=== PATIENT | male | born 1950 | race Caucasian/White ===

== ENCOUNTER 2020-11-14 10:11 | Outpatient (CLI) | payer MEDICARE, OTHER, SELFPAY ==
[2020-11-14] MEDS: sodium chloride 0.9% 1,000 ML 999 ML IV (11:40)
[2020-11-14] MEDS: levofloxacin-dextrose 5% 750 mg-150 mL Premix 100 MG IV (11:40)
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
== END 2020-11-14 10:12 | disposition home or self-care (01) ==
PROVIDERS: Family Provider Family Medicine; Visit Provider Internal Medicine Medical Oncology
DX: C83.37 Diffuse large B-cell lymphoma, spleen (principal); R05 Cough; Z90.81 Acquired absence of spleen; Z79.899 Other long term (current) drug therapy
CPT/HCPCS: 96365; 99205; J1956; J7030

== ENCOUNTER 2020-11-15 14:42 | Outpatient (CLI) | payer MEDICARE, OTHER, SELFPAY ==
[2020-11-15 14:15] LABS: Basophils % 0.5 %; Eosinophils % 0.5 %; Hemoglobin 13.2 g/dL (11.7-16.6); Lymphocytes # 1.7 10^3/uL (0.8-4.8); Lymphocytes % 22.9 %; Mean Corpuscular HGB Conc 32.2 g/dL (30.0-36.0); Mean Corpuscular Hemoglobin 29.7 pg (28.0-34.0); Mean Corpuscular Volume 92.3 fL (80-94); Mean Platelet Volume 9.6 fL (7.4-10.4); Monocytes # 0.7 10^3/uL (0.2-0.9); Monocytes % 9.6 %; Neutrophils # 4.79 10^3/uL (1.8-7.7); Nucleated Red Blood Cells % 0 %; Platelet Count 558 10^3/cmm (130-400); Red Blood Count 4.44 10^6/uL (4.1-5.3); Red Cell Distribution Width 11.7 % (12.1-15.1); White Blood Count 7.3 10^3/uL (4.0-10.0)
[2020-11-15 14:42] LABS: Alanine Aminotransferase 28 U/L (0-41); Albumin Level 3.6 g/dL (3.5-5.2); Alkaline Phosphatase 107 IU/L (40-130); Anion Gap 13.1 (5-19); Aspartate Amino Transferase 24 U/L (0-40); Blood Urea Nitrogen 10 mg/dL (8-23); Calcium 9.5 mg/dL (8.5-10.5); Carbon Dioxide 30 mmol/L (22-29); Chloride 96 mmol/L (98-107); Globulin 3.7 g/dL (1.3-4.6); Glomerular Filtration Rate 133.6 mL/min (90-130); Glucose 131 mg/dL (65-115); Lactate Dehydrogenase 231 U/L (135-225); Osmolality Calculated 281 mOsm/kg (285-295); Potassium 4.1 mmol/L (3.5-5.1); Sodium 135 mmol/L (136-145); Total Bilirubin 0.4 mg/dL (0.15-1.2); Total Protein 7.3 g/dL (6.6-8.7); Uric Acid 3.3 mg/dL (3.4-7.0)
== END 2020-11-15 14:43 | disposition home or self-care (01) ==
LOC: ONCMED 14:47
PROVIDERS: PCP Family Medicine; Visit Provider Internal Medicine Medical Oncology
DX: C83.37 Diffuse large B-cell lymphoma, spleen (principal)
CPT/HCPCS: 80053; 83615; 84550; 85025

== ENCOUNTER → 2020-11-23 15:26 | Outpatient (BNVA) | payer MEDICARE, OTHER, SELFPAY | PROVIDERS: PCP Family Medicine; Visit Provider Surgery | DX: Z01.812 Encounter for preprocedural laboratory examination (principal); C85.10 Unspecified B-cell lymphoma, unspecified site | CPT/HCPCS: 87635 ==

== ENCOUNTER 2020-11-27 11:43 | Day surgery (SDC) | payer MEDICARE, OTHER, SELFPAY ==
[2020-11-24 11:15] VITALS: BMI 21.4
--- NOTE | 2020-11-27 | SCC_ITS ---
Procedure Done: Right subclavian vein PowerPort placement 11.5 seconds of fluoroscopic guidance, for a cumulative dose of 1.17 mGy, was provided to Dr. Zacarias by the radiology department. C-arm images of the chest were saved for the patient's permanent record. [facility]
--- NOTE | 2020-11-27 12:17 | SC_ITS ---
WS: [id number] INTRAOPERATIVE TECHNIQUE: 2 Spot fluoroscopic images for intraoperative purposes. FLUOROSCOPY TIME: 11.5 seconds CLINICAL INFORMATION: Powerport Placement COMPARISON: None. FINDINGS: Right Port-A-Cath with tip in the subclavian vein. No pneumothorax. SC/C-arm FL for CVA [id number] IMPRESSION: Images obtained for intraoperative purposes.
[2020-11-27 12:21] VITALS: BP 131/82; PULSE 78; RESP 18; TEMP 37; O2SAT 95
[2020-11-27] MEDS: sodium chloride 0.9% 1,000 ML 30 ML IV (12:56)
--- NOTE | 2020-11-27 13:03 | W.PM.OPSUD ---
Surgery/Procedure H&P Update DATE OF PROCEDURE: November 27, 2020 DATE H&P PERFORMED: 11/23/20 H&P UPDATE INFORMATION: I have reviewed H&P completed within last 30 days, I have examined patient prior to procedure and No changes to prior documentation PREOP DIAGNOSIS: Lymphoma requiring PowerPort placement PRIMARY INDICATION FOR PROCEDURE: The same PLANNED PROCEDURE: Operation Date: 11/27/20 13:10 Proposed Procedures p Portacath Placement 53461 C85.10(Not Applicable) - Matthew Zacarias MD
--- NOTE | 2020-11-27 13:21 | ANES.PREANE2 ---
Pre-Anesthetic Assessment Pre-Anesthetic Assessment: Height/Weight: Height 1.8 m Weight 69.853 kg Temp Pulse Resp BP Pulse Ox 98.6 F 78 18 131/82 95 11/27/20 12:21 11/27/20 12:21 11/27/20 12:21 11/27/20 12:21 11/27/20 12:21 Preop Diagnosis: Lymphoma requiring PowerPort placement Proposed Procedure: Operation Date: 11/27/20 13:10 Proposed Procedures p Portacath Placement 08798 C85.10(Not Applicable) - Matthew Zacarias MD Was Beta Malu taken within 24 hours: N/A Last intake: Intake Last Liquid Date 11/27/20 Last Liquid Time 09:00 Last Solid Date 11/26/20 Last Solid Time 19:00 Social: Social History: No alcohol and No tobacco Exam: Pre-Anes Outpt Exam: alert, oriented x 3, clear to auscultation bilaterally and regular rate & rhythm Airway: Submandibular: WNL Cervical ROM: WNL MP: 2 Dentition: Full CV/HEM: CV/HEM: Afib (s/p ablation) and Arrythmia (loop recorder) Anesthetic Plan: ASA status: 3 Anesthesia: MAC Risk of > 500 ml blood loss (7ml/kg in children): No Meds/Allergies Current Medications: Current Medications Generic Name Dose Route Start Last Admin Trade Name Freq PRN Reason Stop Dose Admin Sodium Chloride 1,000 mls @ 30 ml s/hr 11/27/20 12:30 11/27/20 12:56 Sodium Chloride 0.9% IV 11/28/20 12:29 30 mls/hr .Q24H DUDLEY Administration Data Anesthesia Cardiac Studies: No Data to Display
[2020-11-27] MEDS: lidocaine 2% INJ 20 mL INJECTION (14:01)
[2020-11-27] MEDS: heparin, porcine 1,000 unit/mL INJ 10 mL 10000 UNIT INJECTION (14:01)
--- NOTE | 2020-11-27 14:02 | P.OP_ITS ---
Operative Report Date of procedure: November 27, 2020 Pre-op Diagnosis: Lymphoma requiring PowerPort placement Post-op diagnosis: same Procedure Done: Right subclavian vein PowerPort placement with interpretation under fluoroscopy was done by me through the whole entire procedure Implants: PowerPort Surgeon: Matthew Zacarias Systems Designer: Surgical anai Youssef Circulating nurse Kayla Anesthesia: MAC (plant protection supervisor Huyen) Estimated blood loss (mL): 5 Condition: stable Disposition: same day Brief History: Plan of care; After thorough history physical examination and reviewing the chart and reviweing the images iwth my personal intrepretation.I counseled the patient for Port-A-Cath placement, indications, risks including pneumothorax that may require Chest tube(s) placement and potential injury of major vascular structures that may require Thoractomy, benefits,indications and alternatives were all discussed with the patient, patient understands and is interested to proceed. Rationale was carefully and clearly discussed with the patient.Appropriate informed consent have been reviewed and signed. Procedure: Patient was identified in the holding area and taken to the operative room and placed in supine position IV propofol was given by the anesthesia provider ,both arms were tucked,Time-out was done verifying the patient's name/date of /planned procedure and destination after the procedure, all were in agreement. SCDs confirmed to be functioning, preoperative antibiotics administered per protocol, and beta thierno protocol was confirmed, appropriate positioning of the patient was done by me. Medications were reviewed to assess for anticoagulant usage. Risks and benefits and prevention of central line associated blood stream infection (CLABSI) were discussed with the patient/CPOA, and a consent was obtained. Monitors were in place and monitored throughout the procedure. All necessary supplies were available prior to start. Hand hygiene was completed prior to starting. Maximum barrier technique was utilized including a sterile gown, sterile gloves with a hat and mask. Site was was prepped with [chlorhexidine] and a full body drape was placed. 5 mL of 2% lidocaine was injected into the skin with a 25 gauge needle. Prep& drape was done under the usual sterile technique, lidocaine 2% was injected at the site of the stick, started by the Right subclavian stick that retrieved venous blood was obtained from the first stick, a guidewire was then threaded and under the guidance of fluoroscopy position was confirmed to be in the IVC and my interpretation, there was no PVC changes, at that point the guidewire was secured to the drapes with a hemostat and the needle was taken out, attention was then deviated towards creation of a pocket for the port were lidocaine 2% was injected using an 15 blade knife skin incision was created dissection using the Bovie to create a pocket for the Port-A-Cath to be accommodated, hemostasis was secured, after the port being appropriately flushed it was inserted into the pocket and a tunneler was used to accommodate the catheter of the port cath to be delivered through the incision first created at the site of the stick, at that point under fluoroscopy an estimated length was measured for the catheter and was cut at the designed level, followed by that a dilator with the sheath introduced onto the guidewire the dilator and the wire were retrieved and the catheter of the port was introduced via the sheath where it was peeled off and the catheter maintained to be in the SVC that was confirmed with fluoroscopy, and the fluoroscopy interpretation was done by me throughout the entire procedure. The port was kept in its pocket,3-0 Vicryl deep subdermal interrupted sutures, skin was then closed by 4-0 Monocryl as subcuticular closure. The stick site was closed by 3-0 Vicryl and surgical glue was used followed by dressing. Patient tolerated the procedure well was taken to the recovery area Count was correct at the end of the procedure I was present for the whole entire procedure Position of the catheter was checked with a postoperative chest x-ray and it was in good position without evidence of pneumothorax
--- NOTE | 2020-11-27 14:05 | XRR_ITS ---
PROCEDURE INFORMATION: Exam: XR Chest, 1 View Exam date and time: 11/27/2020 2:27 PM Age: 70 years old Clinical indication: Device placement; Other: Right subclavian vein powerport placement; Prior surgery; Additional info: Status post right subclavian vein powerport placement TECHNIQUE: Imaging protocol: XR of the chest Views: 1 view. COMPARISON: No relevant prior studies available. FINDINGS: Tubes, catheters and devices: Right central venous catheter tip in the superior vena cava. Lungs: Hyperinflation. No consolidation. Pleural spaces: Unremarkable. No pleural effusion. No pneumothorax. Heart/Mediastinum: Unremarkable. No cardiomegaly. Bones/joints: No acute findings. XR/XR chest 1V portable [id number] IMPRESSION: Right central venous catheter tip in the superior vena cava.
[2020-11-27 14:18] VITALS: BP 120/80; PULSE 76; RESP 18; TEMP 36.1; O2SAT 97
[2020-11-27 14:36] VITALS: BP 135/89; PULSE 72; RESP 18; O2SAT 98
--- NOTE | 2020-11-27 16:15 | ANE.PACU2 ---
Inpatient post-anesthesia follow up: Airway intact: Yes Vital signs: Temperature 97 F Pulse Rate 72 Respiratory Rate 18 Blood Pressure 135/89 Pulse Oximetry 98 Oxygen Delivery Me thod Room Air Oxygen Flow Rate Fraction of Inspir ed Oxygen Hydration adequate: Yes Nausea and vomiting: No Pain level: 1 Mental status: Baseline
== END 2020-11-27 14:58 | disposition home or self-care (01) ==
PROVIDERS: PCP Family Medicine; Visit Provider Surgery
PROC: (CPT 36561; principal; 2020-11-27 13:10)
DX: C85.10 Unspecified B-cell lymphoma, unspecified site (principal); I48.91 Unspecified atrial fibrillation
CPT/HCPCS: 36561; 12345; 71045; 77001; C1788; J0690; J1644; J2250; J2405; J2704; J3010; J7030

== ENCOUNTER 2020-12-12 13:53 | Outpatient (CLI) | payer MEDICARE, OTHER, SELFPAY ==
--- NOTE | 2020-12-12 14:58 | USCV_ITS ---
Rehan Lambert Age: 70 Gender: M : 1950 Exam Date: 12/12/2020 15:28 Ordering Phys: González Alex MD Technologist: Jaden Dudley Exam Location: [facility] [place] Indication: CHECK LV FUNCTION-BASELINE/ LARGE B CELL LYMPHOMA BP: 125 / 68 HR: 66 Rhythm: Sinus Technical Quality: Adequate MEASUREMENTS (Male / Female) Normal Values 2D ECHO LV Diastolic Diameter PLAX 3.5 cm 4.2 - 5.9 / 3.9 - 5.3 cm LV Systolic Diameter PLAX 2.4 cm IVS Diastolic Thickness 1.4 cm 0.6 - 1.0 / 0.6 - 0.9 cm IVS Systolic Thickness 1.4 cm LVPW Diastolic Thickness 1.2 cm 0.6 - 1.0 / 0.6 - 0.9 cm LVPW Systolic Thickness 1.5 cm LVOT Diameter 2.0 cm LV Ejection Fraction 2D Teich 63.1 % LV Ejection Fraction MOD 2C 67.0 % LV Ejection Fraction 2C AL 66.0 % LA Diameter 3.4 cm LA Width 3.6 cm LA Height 3.8 cm RA Width 4.1 cm RA Height 4.8 cm Aorta at Sinotubular Diameter 3.6 cm M-MODE LV Diastolic Diameter MM 5.6 cm 4.2 - 5.9 / 3.9 - 5.3 cm LV Systolic Diameter MM 3.8 cm LV Ejection Fraction MM Teich 59.7 % IVS Diastolic Thickness MM 1.3 cm 0.6 - 1.0 / 0.6 - 0.9 cm IVS Systolic Thickness MM 1.8 cm LVPW Diastolic Thickness MM 1.3 cm 0.6 - 1.0 / 0.6 - 0.9 cm LVPW Systolic Thickness MM 2.0 cm Aortic Annulus Diameter 3.2 cm LA Ao Ratio MM 1.0 MV E Point Septal Separation 0.3 cm DOPPLER AV Peak Velocity 304.0 cm/s LVOT Peak Velocity 94.0 cm/s AV Area Cont Eq vti 1.0 cm squared AV Area Cont Eq pk 1.0 cm squared MV Area PHT 4.0 cm squared Mitral E to A Ratio 0.8 MV E' Velocity 38.0 cm/s Mitral E to MV E' Ratio 8.5 Mitral E to LV E' Lateral Ratio 8.3 Mitral E to LV E' Septal Ratio 8.7 TR Peak Velocity 219.7 cm/s TR Peak Gradient 19.3 mmHg Right Atrial Pressure 3.0 mmHg Pulmonary Artery Systolic Pressu 22.3 mmHg PV Peak Velocity 90.0 cm/s RV Acceleration Time 0.1 s RV Ejection Time 0.3 s RV AcT/ET 0.4 FINDINGS Left Ventricle Normal left ventricular cavity size. Normal left ventricular systolic function. No regional wall motion abnormalities. Left ventricular ejection fraction is estimated at 59 %. Grade I/IV diastolic dysfunction (abnormal relaxation filling pattern), normal to mildly elevated filling pressures. Right Ventricle The right ventricle is normal in size and function. RVSP could not be calculated due to incomplete tricuspid regurgitation velocity profile. Right Atrium The right atrium is normal in size. Left Atrium The left atrium is normal in size. Mitral Valve Mildly thickened mitral valve. No mitral valve stenosis. Mild mitral valve regurgitation. Aortic Valve Severe aortic valve calcification. Severe aortic valve stenosis, mean gradient 19.8 mmHg, KORI 0.98 cm squared.trace aortic valve regurgitation. Tricuspid Valve Structurally normal tricuspid valve without significant stenosis or regurgitation. Pulmonic Valve Trace pulmonary valve regurgitation. Pericardium Normal pericardium without effusion. Aorta Normal ascending aorta dimension. CONCLUSIONS 1-Normal left ventricular cavity size. Normal left ventricular systolic function. No regional wall motion abnormalities. Left ventricular ejection fraction is estimated at 59 %. Grade I/IV diastolic dysfunction (abnormal relaxation filling pattern), normal to mildly elevated filling pressures. 2-Severe aortic valve calcification. Severe aortic valve stenosis, mean gradient 19.8 mmHg, KORI 0.98 cm squared.trace aortic valve regurgitation. 3-Mildly thickened mitral valve. No mitral valve stenosis. Mild mitral valve regurgitation. 4-There is no pericardial effusion. 5-The right ventricle is normal in size and function. RVSP could not be calculated due to incomplete tricuspid regurgitation velocity profile. 6-There are no prior echocardiogram studies to compare. Radha Mcwilliams MD (Electronically Signed) Final Date: 12 December 2020 18:45 S
--- NOTE | 2020-12-16 13:50 | ONC FU_ITS ---
Dr. Alex Patient Follow-Up Note Patient: Rehan Lambert Unit #: [id number]: 1950 Dicatated By: González Alex M.D.Date of Visit:Dec 12, 2020 Onc Med Follow-up/Prog Note Chief Complaint: Lymphoma. 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 He had presented with an enlarging splenic mass. It was first noted in April 2019 when he underwent surgery for small bowel obstruction, apparently due to benign adhesions. In August [address] urogram as part of an evaluation for hematuria. That study reported a low-attenuation lesion within the spleen measuring 4.4 x 6.1 cm compared to 1.9 x 1.8 cm in the April 2019 study. The visualized portions of the liver appeared normal. There were just a few subcentimeter retroperitoneal and pelvic lymph nodes, and there were no abnormally enlarged retroperitoneal or pelvic lymph nodes noted. An MRI of the abdomen on 09/27/2020 showed a solid enlarging hypervascular mass arising from the medial aspect of the spleen. It measured 7 x 4.9 cm. It demonstrated iso to minimal hyperintensity relative to the spleen and it was felt that the appearance was not typical of a benign hemangioma or hamartoma. An underlying neoplastic process was suspected. He was seen by Dr. Jones on 10/04/2020, and splenectomy was recommended. On 10/31/2020 he underwent exploratory laparotomy with splenectomy. Pathology showed aggressive B-cell lymphoma consistent with diffuse large B-cell lymphoma, germinal center type. The B cells were positive for CD5, CD10, CD20, BCL2, BCL6, and Mum1. They were negative for CD3, CD30, and BCL1. By FISH analysis, the MYC rearrangement and MYC amplification were not detected. 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 A variant of BCL-2 gene rearrangement with an unknown gene could not be excluded. I had seen him initially on 11/14/2020. At that point he was still not feeling very good. He reported having a bad cough and is still having significant abdominal pain. At that point he still had very limited activity, and his appetite was very poor. I did opt to give him antibiotic therapy with Levaquin. He had staging PET/CT on 12/02/2020. It showed mild activity in mediastinal lymph nodes, including the left paratracheal, subaortic, subcarinal, and right hilar territories. The dominant was a right hilar lymph node with SUV 6.6. The findings were felt to be consistent with either reactive adenopathy or lymphoma. There were no other areas of abnormal uptake. He had further evaluation with echocardiogram on 12/12/2020. It showed normal left ventricular systolic function with ejection fraction estimated at 59%. There was grade 1/4 diastolic dysfunction. Also noted was severe aortic valve calcification and severe aortic valve stenosis with a mean gradient of 19.8 mmHg. The KORI was 0.98 cm???. There was just a trace of aortic valve regurgitation. He is seen for a follow-up visit. He has been feeling somewhat better compared to his initial visit. He still has limited activity tolerance, but he is able to do light work now. His ECOG score is one. His appetite is getting better, but he has had a significant weight loss. He does not fever or night sweats. He is not having shortness of breath or cough. He is still having pain in his left upper quadrant area, particularly if he coughs or sneezes. Bowel and bladder function have been okay. Medications: Tamsulosin HCl 1 (0.4 mg) Capsule Oral at bedtime Allergies: Bactrim and HYDROcodone-Acetaminophen. Physical Examination: Constitutional - He still appears somewhat weak generally, Eyes - Sclerae nonicteric. Conjunctivae clear, ENMT - No lesions noted in the oral cavity, Hematologic/Lymphatic - No cervical, clavicular, or axillary adenopathy, Respiratory - Lungs sound clear. He has pretty good air movement bilaterally, Cardiovascular - Heart rhythm appears regular. There is a II/ systolic murmur. There is no gallop or rub noted, Abdomen - Soft. The incision appears well-healed. He sitll has some tenderness in the left upper quadrant. Liver is not enlarged. There is no abdominal mass or ascites noted and there is no inguinal adenopathy, Extremities - No edema, Neurologic - No focal neurologic deficits noted. Problem List: 1. 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 He underwent open splenectomy on 10/31/2020. 2. He underwent partial small bowel resection for benign obstruction in April 2019. 3. Atrial fibrillation with prior ablation. 4. He has severe aortic stenosis by echocardiogram. 5. Benign prostatic hypertrophy. 6. Degenerative arthritis/degenerative disease of the spine. Problems Addressed with this Encounter and Plan: 1. 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 He underwent open splenectomy on 10/31/2020. His staging PET/CT showed mild FDG uptake in mediastinal lymph nodes, consistent with either reactive adenopathy or lymphoma. There were no other areas of abnormal uptake. Following discussion with Dr. Christin Awan at [facility], I am going to recommend a course of treatment with R-CHOP chemotherapy. I will plan a repeat PET/CT after 2 cycles, and depending on how well he tolerates the chemotherapy and on the PET/CT findings, I will continue treatment for up to 4 cycles. I do have concerns about the fact that he still has fairly marginal performance status following the splenectomy in October. The plan will be for him to return next week to begin his first cycle of chemotherapy. He will need hepatitis screening for the rituximab. I reviewed anticipated side effects which may include nausea/vomiting, alopecia, fatigue, low blood counts, and neuropathy, among others. I reviewed the cardiac risk associated with Adriamycin, which is predominantly a dose related risk for cardiomyopathy, but there is also a small risk of arrhythmias which may occur acutely. 2. His baseline echocardiogram showed adequate LV function with ejection fraction estimated at 59%. However, it also showed evidence for severe aortic stenosis by echocardiogram. His security tester was not available for discussion, but I was able to discuss the case with one of his associates. It was deemed acceptable to proceed with an Adriamycin-containing chemotherapy regimen, but it was recommended that we have him seen by a security tester who treats valvular disease when he has completed the chemotherapy. Signed By: González Alex M.D. <<Signature on File>>
== END 2020-12-12 13:54 | disposition home or self-care (01) ==
PROVIDERS: PCP Family Medicine; Visit Provider Internal Medicine Medical Oncology
DX: C83.37 Diffuse large B-cell lymphoma, spleen (principal); I35.0 Nonrheumatic aortic (valve) stenosis; I48.91 Unspecified atrial fibrillation; Z90.81 Acquired absence of spleen; Z79.899 Other long term (current) drug therapy
CPT/HCPCS: 93306; 99214

== ENCOUNTER 2020-12-26 06:17 | Outpatient (CLI) | payer MEDICARE, OTHER, SELFPAY ==
[2020-12-26 08:50] LABS: Basophils % 0.4 %; Eosinophils # 0.1 10^3/uL (0.0-0.8); Eosinophils % 1.3 %; Hematocrit 41.5 % (42.0-52.0); Hemoglobin 13.3 g/dL (11.7-16.6); Lymphocytes # 2.4 10^3/uL (0.8-4.8); Lymphocytes % 34.9 %; Mean Corpuscular Hemoglobin 28.9 pg (28.0-34.0); Mean Corpuscular Volume 90.2 fL (80-94); Monocytes # 0.9 10^3/uL (0.2-0.9); Monocytes % 12.9 %; Neutrophils # 3.38 10^3/uL (1.8-7.7); Neutrophils % 50.1 %; Nucleated Red Blood Cells % 0 %; Platelet Count 310 10^3/cmm (130-400); Red Cell Distribution Width 13.4 % (12.1-15.1); White Blood Count 6.8 10^3/uL (4.0-10.0)
[2020-12-26 09:13] LABS: Alanine Aminotransferase 17 U/L (0-41); Albumin Level 3.9 g/dL (3.5-5.2); Alkaline Phosphatase 97 IU/L (40-130); Anion Gap 10.8 (5-19); Aspartate Amino Transferase 18 U/L (0-40); Blood Urea Nitrogen 11 mg/dL (8-23); Calcium 9.1 mg/dL (8.5-10.5); Carbon Dioxide 29 mmol/L (22-29); Chloride 102 mmol/L (98-107); Globulin 3.4 g/dL (1.3-4.6); Glomerular Filtration Rate 133.6 mL/min (90-130); Glucose 82 mg/dL (65-115); Lactate Dehydrogenase 147 U/L (135-225); Osmolality Calculated 284 mOsm/kg (285-295); Potassium 3.8 mmol/L (3.5-5.1); Sodium 138 mmol/L (136-145); Total Bilirubin 0.4 mg/dL (0.15-1.2); Total Protein 7.3 g/dL (6.6-8.7)
[2020-12-26] MEDS: sodium chloride 0.9% 500 ML 999 ML IV (09:59)
[2020-12-26] MEDS: acetaminophen 325 mg Tablet 650 MG PO (09:59)
[2020-12-26] MEDS: palonosetron 0.25 mg/5 mL SDV IV (09:59)
[2020-12-26] MEDS: diphenhydrAMINE 50 mg/mL SDV 1mL 25 MG IV (10:30)
[2020-12-26] MEDS: sodium chloride 0.9% (100 ml) 100 ML 400 ML (10:30)
[2020-12-26] MEDS: pegfilgrastim 6 mg/0.6 mL Kit (onpro) SUBCUT (16:44)
== END 2020-12-26 06:18 | disposition home or self-care (01) ==
LOC: ONCMED 06:19
PROVIDERS: PCP Family Medicine; Visit Provider Internal Medicine Medical Oncology
DX: Z51.12 Encounter for antineoplastic immunotherapy (principal); Z51.11 Encounter for antineoplastic chemotherapy; C83.37 Diffuse large B-cell lymphoma, spleen; Z79.899 Other long term (current) drug therapy; Z76.89 Persons encountering health services in other specified circumstances
CPT/HCPCS: 80053; 83615; 85025; 96361; 96367; 96372; 96377; 96411; 96413; 96415; 96417; J1100; J1200; J1453; J2469; J2505; J7040; J9000; J9070; J9312; J9370

== ENCOUNTER 2021-01-03 05:59 | Outpatient (CLI) | payer MEDICARE, OTHER, SELFPAY ==
[2021-01-03 10:39] LABS: Basophils # 0.1 10^3/uL (0.0-0.1); Eosinophils # 0.2 10^3/uL (0.0-0.8); Hematocrit 42.5 % (42.0-52.0); Hemoglobin 13.7 g/dL (11.7-16.6); Lymphocytes # 1.1 10^3/uL (0.8-4.8); Lymphocytes % 22.7 %; Mean Corpuscular HGB Conc 32.2 g/dL (30.0-36.0); Mean Platelet Volume 11.1 fL (7.4-10.4); Monocytes # 0.2 10^3/uL (0.2-0.9); Neutrophils # 3.24 10^3/uL (1.8-7.7); Neutrophils % 67.5 %; Nucleated Red Blood Cells % 0 %; Platelet Count 220 10^3/cmm (130-400); Red Blood Count 4.72 10^6/uL (4.1-5.3); Red Cell Distribution Width 13.2 % (12.1-15.1); White Blood Count 4.8 10^3/uL (4.0-10.0)
[2021-01-03 11:02] LABS: Alanine Aminotransferase 35 U/L (0-41); Alkaline Phosphatase 107 IU/L (40-130); Anion Gap 11.7 (5-19); Aspartate Amino Transferase 16 U/L (0-40); Blood Urea Nitrogen 11 mg/dL (8-23); Calcium 9.3 mg/dL (8.5-10.5); Carbon Dioxide 31 mmol/L (22-29); Chloride 97 mmol/L (98-107); Globulin 3.2 g/dL (1.3-4.6); Glomerular Filtration Rate 133.6 mL/min (90-130); Glucose 93 mg/dL (65-115); Lactate Dehydrogenase 163 U/L (135-225); Osmolality Calculated 281 mOsm/kg (285-295); Potassium 3.7 mmol/L (3.5-5.1); Sodium 136 mmol/L (136-145); Total Bilirubin 0.4 mg/dL (0.15-1.2); Total Protein 7.2 g/dL (6.6-8.7)
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
== END 2021-01-03 06:00 | disposition home or self-care (01) ==
LOC: ONCMED 06:02
PROVIDERS: PCP Family Medicine; Visit Provider Nurse Practitioner
DX: C83.37 Diffuse large B-cell lymphoma, spleen (principal); K56.600 Partial intestinal obstruction, unspecified as to cause; I48.91 Unspecified atrial fibrillation; I35.0 Nonrheumatic aortic (valve) stenosis; N40.0 Benign prostatic hyperplasia without lower urinary tract symptoms; M47.9 Spondylosis, unspecified; Z79.899 Other long term (current) drug therapy
CPT/HCPCS: 36415; 80053; 83615; 85025; 99214

== ENCOUNTER → 2021-01-10 14:00 | Outpatient (BNVA) | payer MEDICARE, OTHER, SELFPAY | PROVIDERS: PCP Family Medicine; Referring Provider Internal Medicine Medical Oncology; Visit Provider Internal Medicine Medical Oncology | DX: C85.90 Non-Hodgkin lymphoma, unspecified, unspecified site (principal) | CPT/HCPCS: 80053; 83615; 85007; 85027 ==

== ENCOUNTER 2021-01-17 06:02 | Outpatient (CLI) | payer MEDICARE, OTHER, SELFPAY ==
[2021-01-17] MEDS: acetaminophen 325 mg Tablet 650 MG PO (10:10)
[2021-01-17] MEDS: ondansetron 2 mg/ML SDV 2 mL 16 MG IVP (10:14)
[2021-01-17] MEDS: sodium chloride 0.9% 1,000 ML 75 ML IV (10:14)
[2021-01-17] MEDS: fosaprepitant 150 MG in sodium chloride 0.9% 150 ML 300 MG IV (10:17)
[2021-01-17 10:52] LABS: Basophils # 0.1 10^3/uL (0.0-0.1); Basophils % 1.1 %; Eosinophils % 0.1 %; Hemoglobin 12.6 g/dL (11.7-16.6); Lymphocytes # 1.6 10^3/uL (0.8-4.8); Lymphocytes % 22.4 %; Mean Corpuscular HGB Conc 32.3 g/dL (30.0-36.0); Mean Corpuscular Hemoglobin 29.5 pg (28.0-34.0); Mean Corpuscular Volume 91.3 fL (80-94); Mean Platelet Volume 9.7 fL (7.4-10.4); Monocytes # 1.1 10^3/uL (0.2-0.9); Monocytes % 15.6 %; Neutrophils # 4.25 10^3/uL (1.8-7.7); Neutrophils % 59.3 %; Nucleated Red Blood Cells % 0 %; Platelet Count 408 10^3/cmm (130-400); Red Blood Count 4.27 10^6/uL (4.1-5.3); Red Cell Distribution Width 14.4 % (12.1-15.1); White Blood Count 7.2 10^3/uL (4.0-10.0)
[2021-01-17 11:14] LABS: Alanine Aminotransferase 13 U/L (0-41); Albumin Level 3.8 g/dL (3.5-5.2); Alkaline Phosphatase 89 IU/L (40-130); Aspartate Amino Transferase 18 U/L (0-40); Blood Urea Nitrogen 12 mg/dL (8-23); Calcium 8.9 mg/dL (8.5-10.5); Carbon Dioxide 30 mmol/L (22-29); Chloride 103 mmol/L (98-107); Globulin 3.1 g/dL (1.3-4.6); Glomerular Filtration Rate 133.6 mL/min (90-130); Glucose 75 mg/dL (65-115); Osmolality Calculated 286 mOsm/kg (285-295); Sodium 139 mmol/L (136-145); Total Bilirubin 0.2 mg/dL (0.15-1.2); Total Protein 6.9 g/dL (6.6-8.7)
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
== END 2021-01-17 06:03 | disposition home or self-care (01) ==
LOC: ONCMED 06:05
PROVIDERS: PCP Family Medicine; Visit Provider Nurse Practitioner
DX: Z51.11 Encounter for antineoplastic chemotherapy (principal); Z51.12 Encounter for antineoplastic immunotherapy; C83.37 Diffuse large B-cell lymphoma, spleen; F41.9 Anxiety disorder, unspecified; N40.0 Benign prostatic hyperplasia without lower urinary tract symptoms; M47.9 Spondylosis, unspecified; I48.20 Chronic atrial fibrillation, unspecified; Z86.19 Personal history of other infectious and parasitic diseases; Z79.899 Other long term (current) drug therapy
CPT/HCPCS: 80053; 85025; 96361; 96367; 96372; 96375; 96377; 96411; 96413; 96415; 96417; 99214; J1100; J1200; J1453; J2405; J2505; J7030; J7040; J9000; J9070; J9312; J9370

== ENCOUNTER → 2021-01-23 14:04 | Outpatient (BNVA) | payer MEDICARE, OTHER, SELFPAY | PROVIDERS: PCP Family Medicine; Visit Provider Internal Medicine Medical Oncology | DX: C83.37 Diffuse large B-cell lymphoma, spleen (principal) | CPT/HCPCS: 80053; 83615; 85025 ==

== ENCOUNTER → 2021-01-30 13:58 | Outpatient (BNVA) | payer MEDICARE, OTHER, SELFPAY | PROVIDERS: PCP Family Medicine; Visit Provider Internal Medicine Medical Oncology | DX: C83.37 Diffuse large B-cell lymphoma, spleen (principal) | CPT/HCPCS: 80053; 85007; 85027 ==

== ENCOUNTER 2021-02-07 07:24 | Outpatient (CLI) | payer MEDICARE, OTHER, SELFPAY ==
[2021-02-07 08:05] LABS: Basophils # 0.1 10^3/uL (0.0-0.1); Basophils % 0.9 %; Eosinophils % 0.4 %; Hematocrit 39.8 % (42.0-52.0); Hemoglobin 12.6 g/dL (11.7-16.6); Lymphocytes # 1.5 10^3/uL (0.8-4.8); Mean Corpuscular HGB Conc 31.7 g/dL (30.0-36.0); Mean Corpuscular Volume 91.7 fL (80-94); Mean Platelet Volume 9.7 fL (7.4-10.4); Neutrophils # 4.84 10^3/uL (1.8-7.7); Nucleated Red Blood Cells % 0 %; Platelet Count 432 10^3/cmm (130-400); Red Blood Count 4.34 10^6/uL (4.1-5.3); Red Cell Distribution Width 15.5 % (12.1-15.1); White Blood Count 7.6 10^3/uL (4.0-10.0)
[2021-02-07 08:25] LABS: Alanine Aminotransferase 16 U/L (0-41); Albumin Level 4.2 g/dL (3.5-5.2); Alkaline Phosphatase 106 IU/L (40-130); Anion Gap 11.6 (5-19); Aspartate Amino Transferase 16 U/L (0-40); Blood Urea Nitrogen 8 mg/dL (8-23); Calcium 8.7 mg/dL (8.5-10.5); Carbon Dioxide 30 mmol/L (22-29); Chloride 100 mmol/L (98-107); Globulin 2.8 g/dL (1.3-4.6); Glomerular Filtration Rate 111.8 mL/min (90-130); Glucose 103 mg/dL (65-115); Lactate Dehydrogenase 147 U/L (135-225); Osmolality Calculated 285 mOsm/kg (285-295); Potassium 3.6 mmol/L (3.5-5.1); Sodium 138 mmol/L (136-145); Total Bilirubin 0.3 mg/dL (0.15-1.2)
[2021-02-07] MEDS: acetaminophen 325 mg Tablet 650 MG PO (10:10)
[2021-02-07] MEDS: ondansetron 2 mg/ML SDV 2 mL 8 MG IVP (10:10)
[2021-02-07] MEDS: sodium chloride 0.9% 1,000 ML 999 ML IV (10:10)
[2021-02-07] MEDS: diphenhydrAMINE 50 mg/mL SDV 1mL 25 MG IV (10:40)
[2021-02-07] MEDS: sodium chloride 0.9% (100 ml) 100 ML 500 ML (10:40)
[2021-02-07] MEDS: DOXORUBICIN 255 MG IV (15:50)
[2021-02-07] MEDS: pegfilgrastim 6 mg/0.6 mL Kit (onpro) SUBCUT (16:15)
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
== END 2021-02-07 07:25 | disposition home or self-care (01) ==
LOC: ONCMED 07:30
PROVIDERS: PCP Family Medicine; Visit Provider Nurse Practitioner
DX: Z51.12 Encounter for antineoplastic immunotherapy (principal); Z51.11 Encounter for antineoplastic chemotherapy; C83.37 Diffuse large B-cell lymphoma, spleen; I48.20 Chronic atrial fibrillation, unspecified; I35.0 Nonrheumatic aortic (valve) stenosis; N40.0 Benign prostatic hyperplasia without lower urinary tract symptoms; M47.9 Spondylosis, unspecified; Z79.899 Other long term (current) drug therapy
CPT/HCPCS: 80053; 83615; 85025; 96361; 96367; 96372; 96377; 96413; 96415; 96417; 99214; J1100; J1200; J1453; J2405; J2505; J7030; J7040; J9000; J9070; J9312; J9370

== ENCOUNTER → 2021-02-27 08:26 | Outpatient (BNVA) | payer MEDICARE, OTHER, SELFPAY | PROVIDERS: PCP Family Medicine; Referring Provider Internal Medicine Medical Oncology; Visit Provider Internal Medicine Medical Oncology | DX: C83.37 Diffuse large B-cell lymphoma, spleen (principal) | CPT/HCPCS: 80053; 83615; 85025 ==

== ENCOUNTER 2021-02-28 07:29 | Outpatient (CLI) | payer MEDICARE, OTHER, SELFPAY ==
--- NOTE | 2021-02-28 07:35 | USCV_ITS ---
Rehan Lambert Age: 70 Gender: M : 1950 Exam Date: 02/28/2021 07:55 Ordering Phys: Martha Baker NP Technologist: Jaden Dudley [place] [facility] [place]: BP: 138 / 75 HR: 71 Rhythm: Sinus Technical Quality: Fair MEASUREMENTS (Male / Female) Normal Values 2D ECHO LV Diastolic Diameter PLAX 4.5 cm 4.2 - 5.9 / 3.9 - 5.3 cm LV Systolic Diameter PLAX 2.9 cm IVS Diastolic Thickness 1.1 cm 0.6 - 1.0 / 0.6 - 0.9 cm IVS Systolic Thickness 1.8 cm LVPW Diastolic Thickness 1.1 cm 0.6 - 1.0 / 0.6 - 0.9 cm LVPW Systolic Thickness 1.8 cm LVOT Diameter 2.0 cm LV Ejection Fraction 2D Teich 65.8 % LV Ejection Fraction MOD 2C 55.8 % LV Ejection Fraction 2C AL 54.8 % LA Diameter 4.0 cm LA Width 3.6 cm Aorta at Sinotubular Diameter 3.5 cm M-MODE LV Diastolic Diameter MM 3.8 cm 4.2 - 5.9 / 3.9 - 5.3 cm LV Systolic Diameter MM 2.5 cm LV Ejection Fraction MM Teich 63.2 % IVS Diastolic Thickness MM 1.4 cm 0.6 - 1.0 / 0.6 - 0.9 cm IVS Systolic Thickness MM 2.2 cm LVPW Diastolic Thickness MM 1.5 cm 0.6 - 1.0 / 0.6 - 0.9 cm LVPW Systolic Thickness MM 1.9 cm Aortic Annulus Diameter 3.2 cm LA Ao Ratio MM 1.3 MV E Point Septal Separation 0.3 cm DOPPLER AV Peak Velocity 377.0 cm/s LVOT Peak Velocity 94.0 cm/s AV Area Cont Eq vti 1.0 cm squared AV Area Cont Eq pk 0.8 cm squared MV Area PHT 2.6 cm squared Mitral E to A Ratio 0.9 MV E' Velocity 40.5 cm/s Mitral E to MV E' Ratio 8.7 Mitral E to LV E' Lateral Ratio 7.4 Mitral E to LV E' Septal Ratio 10.5 TR Peak Velocity 230.0 cm/s TR Peak Gradient 21.2 mmHg TV Peak E Velocity 101.0 cm/s Right Atrial Pressure 3.0 mmHg Pulmonary Artery Systolic Pressu 24.2 mmHg RV Acceleration Time 0.1 s RV Ejection Time 0.3 s RV AcT/ET 0.4 FINDINGS Left Ventricle Normal left ventricular size. LV systolic function is normal with EF of 55-60%. No regional wall motion abnormalities. Grade 1 diastolic dysfunction Right Ventricle The right ventricle is normal in size and function. Right Atrium The right atrium is normal in size. Left Atrium The left atrium is normal in size. Mitral Valve Thickened mitral valve. No significant stenosis. There is mild mitral regurgitation. Aortic Valve Severely calcified aortic valve. Based on current echo, patient has moderate to severe aortic stenosis. Continue to question patient has a mean gradient across the aortic valve of 27 mmHg and aortic valve area of 0.97 cm squared. There is no aortic regurgitation. Tricuspid Valve Structurally normal tricuspid valve without significant stenosis or regurgitation. Insufficient TR jet to calculate RVSP. Pulmonic Valve Grossly normal Pericardium Normal pericardium without effusion. Aorta Normal ascending aorta dimension. CONCLUSIONS Normal LV systolic function with EF of 55 to 60%. Grade 1 diastolic dysfunction is seen. Moderate to severe aortic stenosis with a mean gradient across aortic valve of 27 mmHg and aortic valve area of 0.97 cm squared. Compared to prior echocardiogram from 12/12/2020, no significant changes are noted. Malcolm Paulson MD (Electronically Signed) Final Date: 28 Feb 2021 09:51 S
[2021-02-28] MEDS: palonosetron 0.25 mg/5 mL SDV IV (09:42)
[2021-02-28] MEDS: sodium chloride 0.9% 500 ML 999 ML IV (09:42)
[2021-02-28] MEDS: acetaminophen 325 mg Tablet 650 MG PO (09:50)
[2021-02-28] MEDS: sodium chloride 0.9% (100 ml) 100 ML 400 ML (09:59)
[2021-02-28] MEDS: diphenhydrAMINE 50 mg/mL SDV 1mL 25 MG IV (09:59)
[2021-02-28] MEDS: pegfilgrastim 6 mg/0.6 mL Kit (onpro) SUBCUT (14:55)
[2021-02-28] MEDS: DOXORUBICIN 255 MG IV (15:10)
--- NOTE | 2021-02-28 16:28 | ONC FU_ITS ---
Dr. Alex Patient Follow-Up Note Patient: Rehan Lambert Unit #: [id number]: 1950 Dicatated By: González Alex M.D.Date of Visit:February 28, 2021 Onc Med Follow-up/Prog Note Chief Complaint: Lymphoma. 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 He had presented with an enlarging splenic mass. It was first noted in April 2019 when he underwent surgery for small bowel obstruction, apparently due to benign adhesions. In August [address] urogram as part of an evaluation for hematuria. That study reported a low-attenuation lesion within the spleen measuring 4.4 x 6.1 cm compared to 1.9 x 1.8 cm in the April 2019 study. The visualized portions of the liver appeared normal. There were just a few subcentimeter retroperitoneal and pelvic lymph nodes, and there were no abnormally enlarged retroperitoneal or pelvic lymph nodes noted. An MRI of the abdomen on 09/27/2020 showed a solid enlarging hypervascular mass arising from the medial aspect of the spleen. It measured 7 x 4.9 cm. It demonstrated iso to minimal hyperintensity relative to the spleen and it was felt that the appearance was not typical of a benign hemangioma or hamartoma. An underlying neoplastic process was suspected. He was seen by Dr. Jones on 10/04/2020, and splenectomy was recommended. On 10/31/2020 he underwent exploratory laparotomy with splenectomy. Pathology showed aggressive B-cell lymphoma consistent with diffuse large B-cell lymphoma, germinal center type. The B cells were positive for CD5, CD10, CD20, BCL2, BCL6, and Mum1. They were negative for CD3, CD30, and BCL1. By FISH analysis, the MYC rearrangement and MYC amplification were not detected. 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 A variant of BCL-2 gene rearrangement with an unknown gene could not be excluded. I had seen him initially on 11/14/2020. At that point he was still not feeling very good. He reported having a bad cough and is still having significant abdominal pain. At that point he still had very limited activity, and his appetite was very poor. I did opt to give him antibiotic therapy with Levaquin. He had staging PET/CT on 12/02/2020. It showed mild activity in mediastinal lymph nodes, including the left paratracheal, subaortic, subcarinal, and right hilar territories. The dominant was a right hilar lymph node with SUV 6.6. The findings were felt to be consistent with either reactive adenopathy or lymphoma. There were no other areas of abnormal uptake. He had further evaluation with echocardiogram on 12/12/2020. It showed normal left ventricular systolic function with ejection fraction estimated at 59%. There was grade 1/4 diastolic dysfunction. Also noted was severe aortic valve calcification and severe aortic valve stenosis with a mean gradient of 19.8 mmHg. The KORI was 0.98 cm???. There was just a trace of aortic valve regurgitation. With those findings he was recommended to undergo treatment with R-CHOP chemotherapy for up to 4 cycles, depending on his response by follow-up PET/CT after 2 cycles. His medical history is otherwise significant for severe aortic stenosis. He has a history of atrial fibrillation with a prior ablation procedure. He also has a history of Graves' disease and history of C. difficile colitis. His other medical illnesses have been limited to degenerative arthritis/degenerative disease of the spine and benign prostatic hypertrophy. He has a history of having undergone partial small bowel resection for benign obstruction in April 2019. He is a non-smoker, but he does have a history of chewing tobacco. INTERIM HISTORY: He began cycle 1 of R-CHOP on 12/26/2020. Despite having fairly marginal performance status, he tolerated the treatment reasonably well and was able to continue with cycle 2 on 01/17/2021. His restaging PET/CT on 02/03/2021 showed improved FDG uptake in mediastinal lymph nodes with a dominant right hilar lymph node SUV decreased to 3.4 from 6.6 on the pretreatment study. Other mediastinal nodes were noted to demonstrate similar improvement. He then continued with cycle 3 of R-CHOP on 02/07/2021. He is seen for a follow-up visit. He continues to have some generalized weakness/fatigue and he particularly feels rundown for a few days after his chemotherapy. However, he is doing light work now. His ECOG score is 1. He has altered taste after chemotherapy but his appetite is otherwise pretty good. He does not have fever or night sweats. He reports having some pain under his rib cage on the right side which lasts for a couple of weeks and then goes away. He has had some sores in his mouth. He has shortness of breath and he thinks his breathing has gotten worse since he started the chemotherapy. He has just occasional cough. He sometimes has chest pain. He has no GI or complaints. He has been having some pain from his lower chest down to his feet. It is intermittent, but sometimes pretty rough. He does not complain of headache. He sometimes has dizziness. He has no numbness/paresthesia, he does complain that his feet have been swelling. Medications: Tamsulosin HCl 1 (0.4 mg) Capsule Oral at bedtime Allergies: Bactrim and HYDROcodone-Acetaminophen. Vital Signs: Performed on February 28, 2021 09:04 Height - 70.00 in Weight - 164.6 lbs (HIGH) BSA - 1.92 sq.m BMI - 23.62 Temperature - 97.8 F (LOW) Pulse - 76 /min Respiration - 18 /min BP - 127/76 mm(hg) O2 Sat - 98 % Pain - 0 Fatigue - 5 Physical Examination: Constitutional - He appears somewhat weak generally, Eyes - Sclerae nonicteric. Conjunctivae clear, ENMT - No lesions noted in the oral cavity, Hematologic/Lymphatic - No cervical, clavicular, or axillary adenopathy, Respiratory - Lungs sound clear, Cardiovascular - Heart rhythm is regular. There is a II/ systolic murmur. There is no gallop or rub noted, Abdomen - Soft. Liver is not enlarged. There is no abdominal mass or ascites noted and there is no inguinal adenopathy, Extremities - No edema, Neurologic - No focal neurologic deficits noted. Lab/Imaging: CBC shows hemoglobin 12.3 g, WBC 5200, and platelet count 351,000. Comprehensive profile is unremarkable. LDH is normal at 140 U/L. Problem List: 1. 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 He underwent open splenectomy on 10/31/2020. 2. He underwent partial small bowel resection for benign obstruction in April 2019. 3. Atrial fibrillation with prior ablation. 4. He has severe aortic stenosis by echocardiogram. 5. Benign prostatic hypertrophy. 6. Degenerative arthritis/degenerative disease of the spine. 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 He underwent open splenectomy on 10/31/2020. His staging PET/CT showed mild FDG uptake in mediastinal lymph nodes, consistent with either reactive adenopathy or lymphoma. There were no other areas of abnormal uptake. With those findings he was recommended to undergo a course of treatment with R-CHOP chemotherapy for up to 4 cycles. He has now completed 3 cycles of chemotherapy. His restaging PET/CT prior to the 3rd cycle did show improvement in the FDG uptake within the right hilar and mediastinal lymph nodes. It is still unclear, though, whether those represent lymphoma versus reactive adenopathy. I am more inclined to think it is the latter, as I would have predicted a more complete response if the nodes were involved with lymphoma. Thus far he has been able to tolerate the chemotherapy with acceptable toxicity. As such, I will proceed now with his 4th cycle of R-CHOP. The dosages will remain the same. I will tentatively plan a follow-up visit in 1 month. In the meantime, I am going to review the PET/CT with Dr. Elena to determine whether or not the lymph nodes may be accessible for biopsy by EBUS. Signed By: González Alex M.D. <<Signature on File>>
== END 2021-02-28 07:30 | disposition home or self-care (01) ==
LOC: US 07:30 → ONCMED 08:34
PROVIDERS: PCP Family Medicine; Visit Provider Internal Medicine Medical Oncology
DX: Z51.12 Encounter for antineoplastic immunotherapy (principal); Z51.11 Encounter for antineoplastic chemotherapy; C83.37 Diffuse large B-cell lymphoma, spleen; I48.20 Chronic atrial fibrillation, unspecified; I35.0 Nonrheumatic aortic (valve) stenosis; N40.0 Benign prostatic hyperplasia without lower urinary tract symptoms; M47.9 Spondylosis, unspecified; Z79.899 Other long term (current) drug therapy
CPT/HCPCS: 93306; 96367; 96368; 96372; 96377; 96413; 96415; 96417; 99214; J1100; J1200; J1453; J2469; J2505; J7040; J9000; J9070; J9312; J9370

== ENCOUNTER → 2021-03-15 14:25 | Outpatient (BNVA) | payer MEDICARE, OTHER, SELFPAY | PROVIDERS: PCP Family Medicine; Visit Provider Internal Medicine Critical Care Medicine | DX: R09.89 Other specified symptoms and signs involving the circulatory and respiratory systems (principal); Z20.822 Contact with and (suspected) exposure to COVID-19 | CPT/HCPCS: 87635 ==

== ENCOUNTER 2021-03-20 07:00 | Day surgery (SDC) | payer MEDICARE, OTHER, SELFPAY ==
[2021-03-16 13:07] VITALS: BMI 22.6
[2021-03-20] VITALS (7 sets, daily range): BP systolic 118–134; BP diastolic 73–82; PULSE 68–85; RESP 15–25; TEMP 36.2–36.5; O2SAT 95–98; BMI 22.7
[2021-03-20] MEDS: sodium chloride 0.9% 1,000 ML 30 ML IV (07:45)
--- NOTE | 2021-03-20 08:23 | ANES.PREANE2 ---
Pre-Anesthetic Assessment Pre-Anesthetic Assessment: Height/Weight: Height 1.8 m Weight 73.936 kg Temp Pulse Resp Pulse Ox 97.7 F 85 18 98 03/20/21 07:23 03/20/21 07:23 03/20/21 07:23 03/20/21 07:23 Preop Diagnosis: Lymphoma requiring PowerPort placement Proposed Procedure: Operation Date: 03/20/21 08:25 Proposed Procedures p Ebus 29101 63137 C85.90(Not Applicable) - Kari Elena MD s Bronchoscopy 73181 45621 C85.90(Not Applicable) - Kari Elena MD Was Beta Malu taken within 24 hours: N/A Was Clonidine taken within 24 hours: N/A Last intake: Intake Last Liquid Date 03/19/21 Last Liquid Time 21:00 Last Solid Date 03/19/21 Last Solid Time 06:30 Social: Social History: No alcohol and No tobacco Exam: Pre-Anes Outpt Exam: alert, oriented x 3, clear to auscultation bilaterally and regular rate & rhythm Airway: Submandibular: WNL Cervical ROM: WNL MP: 2 Dentition: Full CV/HEM: CV/HEM: Afib (s/p ablation) and Murmur Comments: lymphoma Anesthetic Plan: ASA status: 3 Anesthesia: General Risk of > 500 ml blood loss (7ml/kg in children): No Meds/Allergies Current Medications: Current Medications Generic Name Dose Route Start Last Admin Trade Name Freq PRN Reason Stop Dose Admin Sodium Chloride 1,000 mls @ 30 ml s/hr 03/20/21 07:15 03/20/21 07:45 Sodium Chloride 0.9% IV 03/21/21 07:14 30 mls/hr .Q24H DUDLEY Administration PFSH Anesthesia PFSH: Medical History (Updated 03/15/21 @ 14:07 by Kari Elena MD) A-fib Anxiety BPH (benign prostatic hyperplasia) Degenerative disc disease History of Clostridioides difficile infection Large B-cell lymphoma Surgical History (Updated 03/15/21 @ 14:07 by Kari Elena MD) History of colon resection History of colonoscopy (~2014) History of exploratory laparotomy (~10/2020) History of laparoscopic cholecystectomy (~2016) History of lumbar laminectomy (~2009) History of neck surgery (~2006) History of prior ablation treatment (~2017) History of splenectomy (~10/2020) History of total right hip arthroplasty (~2008) Social History Smoking and tobacco status: current every day smoker smokeless tobacco Smokeless tobacco user: chewing tobacco Smoking risk assessment/counseling performed?: Yes Alcohol intake: never Counseling given: No Counseling given: No Lives independently: Yes Household members: spouse Marital status: Current occupational status: retired History of recent travel: No Current gender identity: Male and Female Data Anesthesia Cardiac Studies: No Data to Display
--- NOTE | 2021-03-20 09:33 | W.PM.OPSUD ---
Surgery/Procedure H&P Update DATE OF PROCEDURE: March 20, 2021 DATE H&P PERFORMED: 03/15/21 H&P UPDATE INFORMATION: I have reviewed H&P completed within last 30 days, I have examined patient prior to procedure and No changes to prior documentation PREOP DIAGNOSIS: Lymphoma with mediastinal hilar lymphadenopathy PLANNED PROCEDURE: Bronchoscopy inspection of the airway, endobronchial sound guided transbronchial needle aspiration of lymph nodes and control of bleeding. Operation Date: 03/20/21 08:25 Proposed Procedures p Ebus [id number] C85.90(Not Applicable) - Kari Elena MD s Bronchoscopy [id number] C85.90(Not Applicable) - Kari Elena MD
[2021-03-20] MEDS: lidocaine 1% INJ 20 mL XX (10:40)
--- NOTE | 2021-03-20 11:35 | PM.OP ---
Operative Report Date of procedure: March 20, 2021 Pre-op Diagnosis: Lymphoma with mediastinal hilar lymphadenopathy Post-op diagnosis: same Brief History: This is a 70-year-old gentleman with diffuse large B-cell lymphoma coming in for bronchoscopic evaluation for hilar mediastinal lymphadenopathy with PET positivity. Procedure: Name of the procedure: Bronchoscopy with inspection of the airway, endobronchial ultrasound-guided transbronchial needle aspiration of lymph nodes and control of bleeding. Indication: Suspicion for lymphoma involvement of the mediastinal hilar lymph nodes Anesthesia: General anesthesia. Local anesthesia: The alhaji in the right and left mainstem bronchi were anesthetized with 1% lidocaine, 3 mL. Description of the procedure: The procedure was explained to the patient and the consent was obtained. The patient was brought to the OR. The patient underwent endotracheal intubation for general anesthesia. Following induction of general anesthesia, the bronchoscope was advanced through the ET tube. The alhaji was sharp. The alhaji, the right and left mainstem bronchi are anesthetized with 1% lidocaine. In a systematic manner bilateral bronchial tree was then examined. The bronchoscope was advanced into the left mainstem bronchus. The left upper lobe, lingula and left lower lobe bronchi were examined up to the third subsegmental level and no abnormalities were identified. The bronchoscope was then introduced into the right mainstem bronchus. The right upper lobe, right middle lobe and right lower lobe bronchi were examined up to the third subsegmental level and no abnormalities were identified. The endobronchial ultrasound was introduced through the ET tube. Mild mediastinal hilar lymphadenopathy was noted. Fine-needle aspiration was performed from station 10 and 7 lymph node. Samples: 1. The transbronchial needle aspiration of the aforementioned lymph node groups were sent for histopathology and flow cytometry. Complications: There was no immediate complications.
--- NOTE | 2021-03-20 13:27 | ANE.PACU2 ---
Inpatient post-anesthesia follow up: Airway intact: Yes Vital signs: Temperature 97.4 F Pulse Rate 68 Respiratory Rate 18 Blood Pressure 134/80 Pulse Oximetry 97 Oxygen Delivery Me thod Room Air Oxygen Flow Rate 2 Fraction of Inspir ed Oxygen Hydration adequate: Yes Nausea and vomiting: No Pain level: 1 Mental status: Baseline
[2021-03-23 05:23] LABS: Miscellaneous Test See Scanned Lab Rpt
== END 2021-03-20 11:57 | disposition home or self-care (01) ==
PROVIDERS: PCP Family Medicine; Visit Provider Internal Medicine Critical Care Medicine
PROC: BB4BZZZ Ultrasonography of Pleura (ICD-10-PCS; principal; 2021-03-20 08:15)
PROC: 0BJ08ZZ Inspection of Tracheobronchial Tree, Via Natural or Artificial Opening Endoscopic (ICD-10-PCS; CPT 31622; 2021-03-20 08:15)
DX: C85.90 Non-Hodgkin lymphoma, unspecified, unspecified site (principal); R59.1 Generalized enlarged lymph nodes; I48.91 Unspecified atrial fibrillation; F41.9 Anxiety disorder, unspecified; N40.0 Benign prostatic hyperplasia without lower urinary tract symptoms; M19.90 Unspecified osteoarthritis, unspecified site; Z90.49 Acquired absence of other specified parts of digestive tract; F17.220 Nicotine dependence, chewing tobacco, uncomplicated
CPT/HCPCS: 31622; 31652; 88184; 88185; 88305; 96360; 96361; J1100; J2370; J2405; J2704; J3010; J3490; J7030

== ENCOUNTER 2021-04-02 12:58 | Outpatient (CLI) | payer MEDICARE, OTHER, SELFPAY ==
[2021-04-02 13:44] LABS: Basophils # 0.1 10^3/uL (0.0-0.1); Basophils % 1.2 %; Eosinophils # 0.1 10^3/uL (0.0-0.8); Eosinophils % 1.6 %; Hematocrit 36.9 % (42.0-52.0); Hemoglobin 11.9 g/dL (11.7-16.6); Lymphocytes % 20.3 %; Mean Corpuscular HGB Conc 32.2 g/dL (30.0-36.0); Mean Corpuscular Volume 96.1 fL (80-94); Monocytes % 19.9 %; Neutrophils # 2.81 10^3/uL (1.8-7.7); Neutrophils % 56.4 %; Nucleated Red Blood Cells % 0 %; Platelet Count 342 10^3/cmm (130-400); Red Blood Count 3.84 10^6/uL (4.1-5.3)
[2021-04-02 14:16] LABS: Alanine Aminotransferase 18 U/L (0-41); Albumin Level 4.1 g/dL (3.5-5.2); Alkaline Phosphatase 95 IU/L (40-130); Anion Gap 13.8 (5-19); Aspartate Amino Transferase 22 U/L (0-40); Blood Urea Nitrogen 10 mg/dL (8-23); Carbon Dioxide 27 mmol/L (22-29); Chloride 104 mmol/L (98-107); Globulin 2.3 g/dL (1.3-4.6); Glomerular Filtration Rate 111.8 mL/min (90-130); Glucose 88 mg/dL (65-115); Lactate Dehydrogenase 145 U/L (135-225); Osmolality Calculated 290 mOsm/kg (285-295); Potassium 3.8 mmol/L (3.5-5.1); Sodium 141 mmol/L (136-145); Total Bilirubin 0.4 mg/dL (0.15-1.2); Total Protein 6.4 g/dL (6.6-8.7)
--- NOTE | 2021-04-04 07:36 | ONC FU_ITS ---
Dr. Alex Patient Follow-Up Note Patient: Rehan Lambert Unit #: [id number]: [id number] Dicatated By: González Alex M.D.Date of Visit:Apr 02, 2021 Onc Med Follow-up/Prog Note Chief Complaint: Lymphoma. 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 He had presented with an enlarging splenic mass. It was first noted in April 2019 when he underwent surgery for small bowel obstruction, apparently due to benign adhesions. In August [address] urogram as part of an evaluation for hematuria. That study reported a low-attenuation lesion within the spleen measuring 4.4 x 6.1 cm compared to 1.9 x 1.8 cm in the April 2019 study. The visualized portions of the liver appeared normal. There were just a few subcentimeter retroperitoneal and pelvic lymph nodes, and there were no abnormally enlarged retroperitoneal or pelvic lymph nodes noted. An MRI of the abdomen on 09/27/2020 showed a solid enlarging hypervascular mass arising from the medial aspect of the spleen. It measured 7 x 4.9 cm. It demonstrated iso to minimal hyperintensity relative to the spleen and it was felt that the appearance was not typical of a benign hemangioma or hamartoma. An underlying neoplastic process was suspected. He was seen by Dr. Jones on 10/04/2020, and splenectomy was recommended. On 10/31/2020 he underwent exploratory laparotomy with splenectomy. Pathology showed aggressive B-cell lymphoma consistent with diffuse large B-cell lymphoma, germinal center type. The B cells were positive for CD5, CD10, CD20, BCL2, BCL6, and Mum1. They were negative for CD3, CD30, and BCL1. By FISH analysis, the MYC rearrangement and MYC amplification were not detected. 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 A variant of BCL-2 gene rearrangement with an unknown gene could not be excluded. I had seen him initially on 11/14/2020. At that point he was still not feeling very good. He reported having a bad cough and is still having significant abdominal pain. At that point he still had very limited activity, and his appetite was very poor. I did opt to give him antibiotic therapy with Levaquin. He had staging PET/CT on 12/02/2020. It showed mild activity in mediastinal lymph nodes, including the left paratracheal, subaortic, subcarinal, and right hilar territories. The dominant was a right hilar lymph node with SUV 6.6. The findings were felt to be consistent with either reactive adenopathy or lymphoma. There were no other areas of abnormal uptake. He had further evaluation with echocardiogram on 12/12/2020. It showed normal left ventricular systolic function with ejection fraction estimated at 59%. There was grade 1/4 diastolic dysfunction. Also noted was severe aortic valve calcification and severe aortic valve stenosis with a mean gradient of 19.8 mmHg. The KORI was 0.98 cm???. There was just a trace of aortic valve regurgitation. With those findings he was recommended to undergo treatment with R-CHOP chemotherapy for up to 4 cycles, depending on his response by follow-up PET/CT after 2 cycles. His medical history is otherwise significant for severe aortic stenosis. He has a history of atrial fibrillation with a prior ablation procedure. He also has a history of Graves' disease and history of C. difficile colitis. His other medical illnesses have been limited to degenerative arthritis/degenerative disease of the spine and benign prostatic hypertrophy. He has a history of having undergone partial small bowel resection for benign obstruction in April 2019. He is a non-smoker, but he does have a history of chewing tobacco. INTERIM HISTORY: He began cycle 1 of R-CHOP on 12/26/2020. Despite having fairly marginal performance status, he tolerated the treatment reasonably well and he was able to continue with cycle 2 on 01/17/2021. His restaging PET/CT on 02/03/2021 showed improved FDG uptake in mediastinal lymph nodes with a dominant right hilar lymph node SUV decreased to 3.4 from 6.6 on the pretreatment study. Other mediastinal nodes were noted to demonstrate similar improvement. He then continued with cycle 3 of R-CHOP on 02/07/2021 and with cycle 4 on 02/28/2021. On 03/15/2021 he had pulmonary consultation with Dr. Elena, and on 03/20/2021 he underwent bronchoscopy/EBUS with transbronchial needle aspiration of station 10R and station 7 lymph nodes. Pathology at both sites was benign. He is seen for a follow-up visit. He has been feeling pretty good generally. He says his energy is pretty good, but he still wears out pretty fast. ECOG score is 1. He complains that he does not have a big appetite. He has not been able to gain weight. He does not have fever or night sweats. He has a little bit of sinus drainage and sore throat, and he does have some cough. He has shortness of breath with activity. He does not complain of chest pain. He is still having some nausea and he continues to have some discomfort in the left side of the abdomen. Bowel and bladder function remain adequate. He has pain in his neck and back, but that is chronic. He very seldom has headache. He sometimes has dizziness. He complains that his feet feel kind of numb. Medications: Tamsulosin HCl 1 (0.4 mg) Capsule Oral at bedtime Allergies: Bactrim and HYDROcodone-Acetaminophen. Vital Signs: Performed on Apr 02, 2021 14:46 Height - 70.00 in Weight - 157.8 lbs (LOW) BSA - 1.89 sq.m BMI - 22.64 Temperature - 98.9 F (HIGH) Pulse - 83 /min Respiration - 17 /min BP - 132/69 mm(hg) O2 Sat - 97 % Pain - 0 Physical Examination: Constitutional - He looks pretty good generally, Eyes - Sclerae nonicteric. Conjunctivae clear, ENMT - No lesions noted in the oral cavity, Hematologic/Lymphatic - No cervical, clavicular, or axillary adenopathy, Respiratory - Lungs sound clear, Cardiovascular - Heart rhythm is regular. There is a II/ systolic murmur. There is no gallop or rub noted, Abdomen - Soft. Liver is not enlarged. There is no abdominal mass or ascites noted and there is no inguinal adenopathy, Extremities - No edema, Neurologic - No focal neurologic deficits noted. Lab/Imaging: Test performed on Apr 02, 2021 13:20 LDH (Total) 145 U/L Sodium 141 mmol/L Potassium 3.8 mmol/L Chloride 104 mmol/L CO2 27 mmol/L Anion Gap 13.8 BUN 10 mg/dL Creatinine 0.7 mg/dL Cr Clearance (Est) 98.7900 mL/min eGFR 111.8 mL/min Glucose 88 mg/dL Osmolality - Calculated 290 mOsm/kg Calcium 9.0 mg/dL Protein, Total 6.4 g/dL Albumin 4.1 g/dL Globulin 2.3 g/dL Bilirubin, Total 0.4 mg/dL ALT (SGPT) 18 U/L AST (SGOT) 22 U/L Alkaline Phosphatase 95 IU/L WBC 5.0 10 3/uL RBC 3.84 10 6/uL HGB 11.9 g/dL HCT 36.9 % MCV 96.1 fL MCH 31.0 pg MCHC 32.2 g/dL RDW 15.0 % Platelet Count 342 10 3/cmm MPV 10.0 fL Neutrophils 2.81 10 3/uL Lymphocytes 1.0 10 3/uL Monocytes 1.0 10 3/uL Eosinophils 0.1 10 3/uL Basophils 0.1 10 3/uL Neutrophil % 56.4 % Lymphocyte % 20.3 % Monocyte % 19.9 % Eosinophil % 1.6 % Basophils % 1.2 % NRBC % 0 % Problem List: 1. 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 He underwent open splenectomy on 10/31/2020. 2. He underwent partial small bowel resection for benign obstruction in April 2019. 3. Atrial fibrillation with prior ablation. 4. He has severe aortic stenosis by echocardiogram. 5. Benign prostatic hypertrophy. 6. Degenerative arthritis/degenerative disease of the spine. 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 He underwent open splenectomy on 10/31/2020. His staging PET/CT showed mild FDG uptake in mediastinal lymph nodes, consistent with either reactive adenopathy or lymphoma. There were no other areas of abnormal uptake. With those findings he was recommended to undergo a course of treatment with R-CHOP chemotherapy for up to 4 cycles. He completed 4 cycles of R-CHOP chemotherapy from 12/26/2020 through 02/28/2021. His restaging PET/CT prior to the 3rd cycle did show improvement in the FDG uptake within the right hilar and mediastinal lymph nodes. As such, it was still unclear as to whether those represent lymphoma versus reactive adenopathy. Following completion of the fourth cycle of chemotherapy, he was seen by Dr. Elena and on 03/20/2021 he underwent bronchoscopy/EBUS with biopsies of station 10 R and station 7 lymph nodes. Pathology was benign. At this point he continues to have some fatigue following the chemotherapy. He continues to have anorexia and he has not been able to gain weight. However, he has completed treatment for the lymphoma, and he will now be followed expectantly. I will see him again in 3 months. In the meantime, he will try and increase his nutritional supplementation with Ensure to twice daily. Signed By: González Alex M.D. <<Signature on File>>
== END 2021-04-02 12:59 | disposition home or self-care (01) ==
LOC: ONCMED 13:01
PROVIDERS: PCP Family Medicine; Visit Provider Internal Medicine Medical Oncology
DX: Z08 Encounter for follow-up examination after completed treatment for malignant neoplasm (principal); Z85.72 Personal history of non-Hodgkin lymphomas; Z90.81 Acquired absence of spleen; Z90.49 Acquired absence of other specified parts of digestive tract; I48.91 Unspecified atrial fibrillation; I35.0 Nonrheumatic aortic (valve) stenosis; N40.0 Benign prostatic hyperplasia without lower urinary tract symptoms; M47.9 Spondylosis, unspecified; R53.0 Neoplastic (malignant) related fatigue; R63.0 Anorexia
CPT/HCPCS: 36591; 80053; 83615; 85025; 99214

== ENCOUNTER 2021-05-15 14:12 | Outpatient (CLI) | payer MEDICARE, OTHER, SELFPAY | END 2021-05-15 14:13 | disposition home or self-care (01) | PROVIDERS: PCP Family Medicine; Visit Provider Internal Medicine Medical Oncology | DX: Z45.2 Encounter for adjustment and management of vascular access device (principal) | CPT/HCPCS: 96523 ==

== ENCOUNTER 2021-06-11 14:39 | Outpatient (CLI) | payer MEDICARE, OTHER, SELFPAY | END 2021-06-11 14:40 | disposition home or self-care (01) | LOC: ONCMED 14:44 | PROVIDERS: PCP Family Medicine; Visit Provider Internal Medicine Medical Oncology | DX: Z45.2 Encounter for adjustment and management of vascular access device (principal) | CPT/HCPCS: 96523 ==

== ENCOUNTER 2021-07-09 11:10 | Outpatient (CLI) | payer MEDICARE, OTHER, SELFPAY ==
[2021-07-09 11:44] LABS: Basophils % 0.7 %; Eosinophils # 0.1 10^3/uL (0.0-0.8); Eosinophils % 1.2 %; Hematocrit 39.7 % (42.0-52.0); Hemoglobin 13.2 g/dL (11.7-16.6); Lymphocytes % 24.2 %; Mean Corpuscular HGB Conc 33.2 g/dL (30.0-36.0); Mean Corpuscular Hemoglobin 30.1 pg (28.0-34.0); Mean Corpuscular Volume 90.6 fl (80-94); Mean Platelet Volume 10.6 fL (7.4-10.4); Monocytes # 0.6 10^3/uL (0.2-0.9); Monocytes % 13.8 %; Neutrophils # 2.47 10^3/uL (1.8-7.7); Neutrophils % 59.9 %; Nucleated Red Blood Cells % 0 %; Platelet Count 248 10^3/cmm (130-400); Red Blood Count 4.38 10^6/uL (4.1-5.3); Red Cell Distribution Width 13.2 % (12.1-15.1); White Blood Count 4.1 10^3/uL (4.0-10.0)
[2021-07-09 12:09] LABS: Alanine Aminotransferase 14 U/L (0-41); Albumin Level 3.9 g/dL (3.5-5.2); Alkaline Phosphatase 92 IU/L (40-130); Anion Gap 10.9 (5-19); Aspartate Amino Transferase 17 U/L (0-40); Blood Urea Nitrogen 9 mg/dL (8-23); Calcium 8.9 mg/dL (8.5-10.5); Carbon Dioxide 28 mmol/L (22-29); Chloride 103 mmol/L (98-107); Globulin 2.7 g/dL (1.3-4.6); Glomerular Filtration Rate 133.2 mL/min (90-130); Glucose 110 mg/dL (65-115); Lactate Dehydrogenase 145 U/L (135-225); Osmolality Calculated 285 mOsm/kg (285-295); Potassium 3.9 mmol/L (3.5-5.1); Sodium 138 mmol/L (136-145); Total Bilirubin 0.4 mg/dL (0.15-1.2); Total Protein 6.6 g/dL (6.6-8.7)
--- NOTE | 2021-07-09 20:08 | ONC FU_ITS ---
Dr. Alex Patient Follow-Up Note Patient: Rehan Lambert Unit #: [id number]: [id number] Dicatated By: González Alex M.D.Date of Visit:Jul 09, 2021 Onc Med Follow-up/Prog Note Chief Complaint: Lymphoma. 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 He had presented with an enlarging splenic mass. It was first noted in April 2019 when he underwent surgery for small bowel obstruction, apparently due to benign adhesions. In August [address] urogram as part of an evaluation for hematuria. That study reported a low-attenuation lesion within the spleen measuring 4.4 x 6.1 cm compared to 1.9 x 1.8 cm in the April 2019 study. The visualized portions of the liver appeared normal. There were just a few subcentimeter retroperitoneal and pelvic lymph nodes, and there were no abnormally enlarged retroperitoneal or pelvic lymph nodes noted. An MRI of the abdomen on 09/27/2020 showed a solid enlarging hypervascular mass arising from the medial aspect of the spleen. It measured 7 x 4.9 cm. It demonstrated iso to minimal hyperintensity relative to the spleen and it was felt that the appearance was not typical of a benign hemangioma or hamartoma. An underlying neoplastic process was suspected. He was seen by Dr. Jones on 10/04/2020, and splenectomy was recommended. On 10/31/2020 he underwent exploratory laparotomy with splenectomy. Pathology showed aggressive B-cell lymphoma consistent with diffuse large B-cell lymphoma, germinal center type. The B cells were positive for CD5, CD10, CD20, BCL2, BCL6, and Mum1. They were negative for CD3, CD30, and BCL1. By FISH analysis, the MYC rearrangement and MYC amplification were not detected. 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 A variant of BCL-2 gene rearrangement with an unknown gene could not be excluded. I had seen him initially on 11/14/2020. At that point he was still not feeling very good. He reported having a bad cough and is still having significant abdominal pain. At that point he still had very limited activity, and his appetite was very poor. I did opt to give him antibiotic therapy with Levaquin. He had staging PET/CT on 12/02/2020. It showed mild activity in mediastinal lymph nodes, including the left paratracheal, subaortic, subcarinal, and right hilar territories. The dominant was a right hilar lymph node with SUV 6.6. The findings were felt to be consistent with either reactive adenopathy or lymphoma. There were no other areas of abnormal uptake. He had further evaluation with echocardiogram on 12/12/2020. It showed normal left ventricular systolic function with ejection fraction estimated at 59%. There was grade 1/4 diastolic dysfunction. Also noted was severe aortic valve calcification and severe aortic valve stenosis with a mean gradient of 19.8 mmHg. The KORI was 0.98 cm???. There was just a trace of aortic valve regurgitation. With those findings he was recommended to undergo treatment with R-CHOP chemotherapy for up to 4 cycles, depending on his response by follow-up PET/CT after 2 cycles. He began cycle 1 of R-CHOP on 12/26/2020. Despite having fairly marginal performance status, he tolerated the treatment reasonably well and he was able to continue with cycle 2 on 01/17/2021. His restaging PET/CT on 02/03/2021 showed improved FDG uptake in mediastinal lymph nodes with a dominant right hilar lymph node SUV decreased to 3.4 from 6.6 on the pretreatment study. Other mediastinal nodes were noted to demonstrate similar improvement. He then continued with cycle 3 of R-CHOP on 02/07/2021 and with cycle 4 on 02/28/2021. On 03/15/2021 he had pulmonary consultation with Dr. Elena, and on 03/20/2021 he underwent bronchoscopy/EBUS with transbronchial needle aspiration of station 10R and station 7 lymph nodes. Pathology at both sites was benign. With that finding, he was followed on expectant management. His medical history is otherwise significant for severe aortic stenosis. He has a history of atrial fibrillation with a prior ablation procedure. He also has a history of Graves' disease and history of C. difficile colitis. His other medical illnesses have been limited to degenerative arthritis/degenerative disease of the spine and benign prostatic hypertrophy. He has a history of having undergone partial small bowel resection for benign obstruction in April 2019. He is a non-smoker, but he does have a history of chewing tobacco. INTERIM HISTORY: In April 2021 he was diagnosed with COVID-19 virus infection. He was given the monoclonal antibody infusion. He did not require hospitalization. He has had gradual recovery. He says his energy now is about half what it used to be. He is able to do some light work. ECOG score is 1. His appetite has not been good. He still has no taste or smell. His weight has remained stable since his March visit. He does not have fever. He occasionally has sweating at night. He complains of having dry mouth. He has just occasional cough. He says he does not have the wind that he used to have. He does not complain of chest pain. He has no GI complaints other than his stools have been dark lately. He has urinary frequency and nocturia. He has been taking 0.8 mg of tamsulosin at bedtime. He has some arthritis in his hands. He also complains of pain in his neck and right shoulder and in his lower back. He does not complain of headache. He sometimes has orthostatic lightheadedness. He also sometimes has numbness in his feet. Medications: Tamsulosin HCl 1 (0.4 mg) Capsule Oral at bedtime Allergies: Bactrim and HYDROcodone-Acetaminophen. Vital Signs: Performed on Jul 09, 2021 14:15 Height - 70.00 in Weight - 158.2 lbs (HIGH) BSA - 1.89 sq.m BMI - 22.70 Temperature - 99.4 F (HIGH) Pulse - 76 /min Respiration - 18 /min BP - 115/71 mm(hg) O2 Sat - 97 % Pain - 5 Fatigue - 5 Physical Examination: Constitutional - He looks pretty good generally, Eyes - Sclerae nonicteric. Conjunctivae clear, ENMT - No lesions noted in the oral cavity, Hematologic/Lymphatic - No cervical, clavicular, or axillary adenopathy, Respiratory - Lungs sound clear, Cardiovascular - Heart rhythm is regular. There is a II/ systolic murmur. There is no gallop or rub noted, Breasts - There is a definite area of nodularity palpable in the lateral aspect of the right breast. It is soft and it feels somewhat elongated, but measuring less than 1 cm, Abdomen - Soft. Liver is not enlarged. There is no abdominal mass or ascites noted and there is no inguinal adenopathy, Extremities - No edema, Neurologic - No focal neurologic deficits noted. Lab/Imaging: Test performed on Jul 09, 2021 11:23 LDH (Total) 145 U/L Sodium 138 mmol/L Potassium 3.9 mmol/L Chloride 103 mmol/L CO2 28 mmol/L Anion Gap 10.9 BUN 9 mg/dL Creatinine 0.6 mg/dL Cr Clearance (Est) 113.6300 mL/min eGFR 133.2 mL/min Glucose 110 mg/dL Osmolality - Calculated 285 mOsm/kg Calcium 8.9 mg/dL Protein, Total 6.6 g/dL Albumin 3.9 g/dL Globulin 2.7 g/dL Bilirubin, Total 0.4 mg/dL ALT (SGPT) 14 U/L AST (SGOT) 17 U/L Alkaline Phosphatase 92 IU/L WBC 4.1 10 3/uL RBC 4.38 10 6/uL HGB 13.2 g/dL HCT 39.7 % MCV 90.6 fl MCH 30.1 pg MCHC 33.2 g/dL RDW 13.2 % Platelet Count 248 10 3/cmm MPV 10.6 fL Neutrophils 2.47 10 3/uL Lymphocytes 1.0 10 3/uL Monocytes 0.6 10 3/uL Eosinophils 0.1 10 3/uL Basophils 0.0 10 3/uL Neutrophil % 59.9 % Lymphocyte % 24.2 % Monocyte % 13.8 % Eosinophil % 1.2 % Basophils % 0.7 % NRBC % 0 % Problem List: 1. 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 He underwent open splenectomy on 10/31/2020. 2. He underwent partial small bowel resection for benign obstruction in April 2019. 3. Atrial fibrillation with prior ablation. 4. He has severe aortic stenosis by echocardiogram. 5. Benign prostatic hypertrophy. 6. Degenerative arthritis/degenerative disease of the spine. 7. He was diagnosed with COVID-19 virus infection in April 2021. Problems Addressed with this Encounter and Plan: 1. 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 He underwent open splenectomy on 10/31/2020. His staging PET/CT showed mild FDG uptake in mediastinal lymph nodes, consistent with either reactive adenopathy or lymphoma. There were no other areas of abnormal uptake. With those findings he was recommended to undergo a course of treatment with R-CHOP chemotherapy for up to 4 cycles. He completed 4 cycles of R-CHOP chemotherapy from 12/26/2020 through 02/28/2021. His restaging PET/CT prior to the 3rd cycle did show improvement in the FDG uptake within the right hilar and mediastinal lymph nodes. As such, it was still unclear as to whether those represent lymphoma versus reactive adenopathy. Following completion of the fourth cycle of chemotherapy, he was seen by Dr. Elena and on 03/20/2021 he underwent bronchoscopy/EBUS with biopsies of station 10 R and station 7 lymph nodes. Pathology was benign. With that finding he was then followed on expectant management. His further clinical course was complicated by COVID-19 virus infection in April 2021. He has been showing gradual recovery. At this point he continues to have fairly limited activity tolerance and has rather poor appetite/oral intake. It is uncertain to what extent those symptoms may be due to aftereffects of his chemotherapy or to effects of the COVID-19 virus infection. Thus far there has been no evidence of recurrence/progression of the lymphoma. He will continue on expectant management. He will be scheduled for surveillance CT scans in 1 month, which will be 6-month interval from completion of chemotherapy. I will tentatively plan a follow-up visit in 3 months. 2. He has a new nodule in the lateral aspect of the right breast. He will be scheduled for diagnostic mammogram/ultrasound. He will have further evaluation as indicated. Signed By: González Alex M.D. <<Signature on File>>
== END 2021-07-09 11:11 | disposition home or self-care (01) ==
LOC: ONCMED 11:13
PROVIDERS: PCP Family Medicine; Visit Provider Internal Medicine Medical Oncology
DX: Z08 Encounter for follow-up examination after completed treatment for malignant neoplasm (principal); Z85.72 Personal history of non-Hodgkin lymphomas; I48.91 Unspecified atrial fibrillation; I70.0 Atherosclerosis of aorta; N40.0 Benign prostatic hyperplasia without lower urinary tract symptoms; M47.9 Spondylosis, unspecified; Z86.16 Personal history of COVID-19; Z79.899 Other long term (current) drug therapy; Z92.21 Personal history of antineoplastic chemotherapy
CPT/HCPCS: 36591; 80053; 83615; 85025; 99214

== ENCOUNTER 2021-07-17 12:54 | Outpatient (CLI) | payer MEDICARE, OTHER, SELFPAY ==
--- NOTE | 2021-07-17 13:04 | MM_ITS ---
WS: [id number] DIAGNOSTIC BILATERAL DIGITAL MAMMOGRAM WITH CAD RIGHT breast ultrasound, limited. HISTORY: Lymphoma; right BREAST NODULE COMPARISON: None available. TECHNIQUE: Bilateral craniocaudad, mediolateral oblique, and mediolateral views are submitted. RIGHT CC and MLO spot compressions. Computer aided detection utilized. Breast composition: The appearance of both breasts. No discrete mass identified. Doesn't report obscu ring soft tissue along the RIGHT chest wall. RIGHT breast ultrasound, limited. Palpable area at 9:00 in the RIGHT breast corresponds to a benign-appearing lymph node measuring 5 x 3 mm. No additional abnormalities are identified. MM/[place] [id number] IMPRESSION: BI-RADS: 2-Benign FOLLOW UP: See Report LACK OF RADIOGRAPHIC EVIDENCE OF MALIGNANCY SHOULD NOT DELAY BIOPSY IF A CLINIC ALLY SUSPICIOUS MASS IS PRESENT.
--- NOTE | 2021-07-17 13:11 | US_ITS ---
WS: [id number] DIAGNOSTIC BILATERAL DIGITAL MAMMOGRAM WITH CAD RIGHT breast ultrasound, limited. HISTORY: Lymphoma; right BREAST NODULE COMPARISON: None available. TECHNIQUE: Bilateral craniocaudad, mediolateral oblique, and mediolateral views are submitted. RIGHT CC and MLO spot compressions. Computer aided detection utilized. Breast composition: The appearance of both breasts. No discrete mass identified. Doesn't report obscu ring soft tissue along the RIGHT chest wall. RIGHT breast ultrasound, limited. Palpable area at 9:00 in the RIGHT breast corresponds to a benign-appearing lymph node measuring 5 x 3 mm. No additional abnormalities are identified. US/US breast RT limited* [id number] IMPRESSION: BI-RADS: 2-Benign FOLLOW UP: See Report LACK OF RADIOGRAPHIC EVIDENCE OF MALIGNANCY SHOULD NOT DELAY BIOPSY IF A CLINIC ALLY SUSPICIOUS MASS IS PRESENT.
== END 2021-07-17 12:55 | disposition home or self-care (01) ==
PROVIDERS: PCP Family Medicine; Visit Provider Internal Medicine Medical Oncology
DX: C83.37 Diffuse large B-cell lymphoma, spleen (principal); N63.15 Unspecified lump in the right breast, overlapping quadrants
CPT/HCPCS: 76642; 77066

== ENCOUNTER 2021-07-27 09:07 | Outpatient (CLI) | payer MEDICARE, OTHER, SELFPAY ==
--- NOTE | 2021-07-27 09:25 | CT_ITS ---
WS: [id number] CT CHEST, ABDOMEN AND PELVIS WITH CONTRAST HISTORY: LYMPHOMA, DIFFUSE LARGE B-CELL LYMPHOMA, SPLEEN TECHNIQUE: Contiguous 5 mm axial imaging performed through the chest, abdomen and pelvis with IV cont rast, oral contrast has been provided. Coronal and sagittal reformats chest. Coronal and sagittal ref ormats through the abdomen and pelvis. All CT scans at [facility] use at least one of these d ose optimization techniques: automated exposure control; mA and/or kV adjustment per patient size (in cludes targeted exams where dose is matched to clinical indication); or iterative reconstruction. CONTRAST: Omnipaque 300; 95 mL IV. DLP: 2139.68 mGycm COMPARISON: 09/06/2020 CT abdomen and pelvis. PET/CT 02/03/[address]: No pulmonary mass or nodule. No pneumonia. Subsegmental atelectasis RIGHT lower lobe. Mild atherosclerosis of aorta. Normal size pulmonary artery. No mediastinal or hilar adenopathy. Heart siz e is normal. No pericardial pleural effusion. Mild RIGHT curvature thoracic spine. No osteoblastic or osteolytic disease. PET/CT negative rib lesion in the RIGHT lateral thorax may be from an old injury . RIGHT subclavian Mediport and cardiac loop recorder. Abdomen CT: Normal size liver. There is a metallic fragment in the central RIGHT lobe of the liver wh ich is unchanged. No metastatic lesions or bile duct dilatation. Prior cholecystectomy. Spleen has be en removed. There is a small splenule at the splenectomy bed. The pancreas is negative. No adrenal ma ss. Moderate atherosclerotic plaque within the aorta with no aneurysm. Nonobstructing calcification u pper pole RIGHT kidney. No solid mass. Parapelvic cyst upper pole LEFT kidney. There is a large amount of oral contrast within the stomach. No GI tract obstruction. Tortuous overla pping loops of colon with no wall thickening. Extensive diverticular disease throughout the colon. Gr eatest distribution of diverticula in the sigmoid. No acute diverticulitis. No obstruction. No adenop athy. Pelvic CT: Minimally distended urinary bladder. No free fluid in the pelvis. No adenopathy identified . Posterior lumbar fusion at L3-4 with interbody spacer. No osteoblastic or osteolytic bone disease. Pr ior RIGHT total hip arthroplasty. CT/CT chest abd pel w con* IMPRESSION: 1. No no lymphadenopathy throughout the chest, abdomen or pelvis. 2. No pulmonary mass or metastatic lesions. 3. Prior splenectomy. 4. Moderate extensive diverticular disease with no acute diverticulitis or obs truction. 5. No ascites. 6. Prior cholecystectomy.
[2021-07-27] MEDS: iohexol 300 mg/mL 100 mL Btl IV (10:44)
[2021-07-27] MEDS: iohexol 300 mg/mL 50 mL Btl PO (10:45)
== END 2021-07-27 09:08 | disposition home or self-care (01) ==
PROVIDERS: PCP Family Medicine; Visit Provider Internal Medicine Medical Oncology
DX: C83.37 Diffuse large B-cell lymphoma, spleen (principal); Z90.49 Acquired absence of other specified parts of digestive tract; K57.90 Diverticulosis of intestine, part unspecified, without perforation or abscess without bleeding; Z90.81 Acquired absence of spleen
CPT/HCPCS: 71260; 74177; Q9967

== ENCOUNTER 2021-08-03 10:18 | Outpatient (CLI) | payer MEDICARE, OTHER, SELFPAY | END 2021-08-03 10:19 | disposition home or self-care (01) | PROVIDERS: PCP Family Medicine; Visit Provider Internal Medicine Medical Oncology | DX: Z45.2 Encounter for adjustment and management of vascular access device (principal) | CPT/HCPCS: 96523 ==

== ENCOUNTER 2021-10-05 11:01 | Outpatient (CLI) | payer MEDICARE, OTHER, SELFPAY ==
[2021-10-05 11:45] LABS: Basophils # 0.1 10^3/uL (0.0-0.1); Basophils % 1.1 %; Eosinophils # 0.1 10^3/uL (0.0-0.8); Eosinophils % 1.5 %; Hematocrit 40.6 % (42.0-52.0); Hemoglobin 13.6 g/dL (11.7-16.6); Lymphocytes # 1.3 10^3/uL (0.8-4.8); Lymphocytes % 27.1 %; Mean Corpuscular HGB Conc 33.5 g/dL (30.0-36.0); Mean Corpuscular Hemoglobin 30.4 pg (28.0-34.0); Mean Corpuscular Volume 90.6 fl (80-94); Mean Platelet Volume 10.3 fL (7.4-10.4); Monocytes # 0.6 10^3/uL (0.2-0.9); Monocytes % 13.7 %; Neutrophils # 2.64 10^3/uL (1.8-7.7); Neutrophils % 56.4 %; Nucleated Red Blood Cells % 0 %; Platelet Count 232 10^3/cmm (130-400); Red Blood Count 4.48 10^6/uL (4.1-5.3); Red Cell Distribution Width 13.1 % (12.1-15.1); White Blood Count 4.7 10^3/uL (4.0-10.0)
[2021-10-05 12:05] LABS: Alanine Aminotransferase 15 U/L (0-41); Alkaline Phosphatase 80 IU/L (40-130); Anion Gap 15.9 (5-19); Aspartate Amino Transferase 18 U/L (0-40); Blood Urea Nitrogen 8 mg/dL (8-23); Calcium 8.3 mg/dL (8.5-10.5); Carbon Dioxide 24 mmol/L (22-29); Chloride 103 mmol/L (98-107); Globulin 2.5 g/dL (1.3-4.6); Glomerular Filtration Rate 164.4 mL/min (90-130); Glucose 104 mg/dL (65-115); Lactate Dehydrogenase 150 U/L (135-225); Osmolality Calculated 287 mOsm/kg (285-295); Potassium 3.9 mmol/L (3.5-5.1); Sodium 139 mmol/L (136-145); Total Bilirubin 0.3 mg/dL (0.15-1.2); Total Protein 6.5 g/dL (6.6-8.7)
== END 2021-10-05 11:02 | disposition home or self-care (01) ==
LOC: ONCMED 11:17
PROVIDERS: Internal Medicine Medical Oncology; PCP Family Medicine; Visit Provider Family Medicine
DX: Z45.2 Encounter for adjustment and management of vascular access device (principal)
CPT/HCPCS: 36591; 80053; 83615; 85025

== ENCOUNTER 2021-10-08 06:35 | Outpatient (CLI) | payer MEDICARE, OTHER, SELFPAY ==
--- NOTE | 2021-10-09 07:29 | ONC FU_ITS ---
Dr. Alex Patient Follow-Up Note Patient: Rehan Lambert Unit #: [id number]: 1950 Dicatated By: González Alex M.D.Date of Visit:Oct 08, 2021 Onc Med Follow-up/Prog Note Chief Complaint: Lymphoma. 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 He had presented with an enlarging splenic mass. It was first noted in April 2019 when he underwent surgery for small bowel obstruction, apparently due to benign adhesions. In August [address] urogram as part of an evaluation for hematuria. That study reported a low-attenuation lesion within the spleen measuring 4.4 x 6.1 cm compared to 1.9 x 1.8 cm in the April 2019 study. The visualized portions of the liver appeared normal. There were just a few subcentimeter retroperitoneal and pelvic lymph nodes, and there were no abnormally enlarged retroperitoneal or pelvic lymph nodes noted. An MRI of the abdomen on 09/27/2020 showed a solid enlarging hypervascular mass arising from the medial aspect of the spleen. It measured 7 x 4.9 cm. It demonstrated iso to minimal hyperintensity relative to the spleen and it was felt that the appearance was not typical of a benign hemangioma or hamartoma. An underlying neoplastic process was suspected. He was seen by Dr. Jones on 10/04/2020, and splenectomy was recommended. On 10/31/2020 he underwent exploratory laparotomy with splenectomy. Pathology showed aggressive B-cell lymphoma consistent with diffuse large B-cell lymphoma, germinal center type. The B cells were positive for CD5, CD10, CD20, BCL2, BCL6, and Mum1. They were negative for CD3, CD30, and BCL1. By FISH analysis, the MYC rearrangement and MYC amplification were not detected. 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 A variant of BCL-2 gene rearrangement with an unknown gene could not be excluded. I had seen him initially on 11/14/2020. At that point he was still not feeling very good. He reported having a bad cough and is still having significant abdominal pain. At that point he still had very limited activity, and his appetite was very poor. I did opt to give him antibiotic therapy with Levaquin. He had staging PET/CT on 12/02/2020. It showed mild activity in mediastinal lymph nodes, including the left paratracheal, subaortic, subcarinal, and right hilar territories. The dominant was a right hilar lymph node with SUV 6.6. The findings were felt to be consistent with either reactive adenopathy or lymphoma. There were no other areas of abnormal uptake. He had further evaluation with echocardiogram on 12/12/2020. It showed normal left ventricular systolic function with ejection fraction estimated at 59%. There was grade 1/4 diastolic dysfunction. Also noted was severe aortic valve calcification and severe aortic valve stenosis with a mean gradient of 19.8 mmHg. The KORI was 0.98 cm???. There was just a trace of aortic valve regurgitation. With those findings he was recommended to undergo treatment with R-CHOP chemotherapy for up to 4 cycles, depending on his response by follow-up PET/CT after 2 cycles. He began cycle 1 of R-CHOP on 12/26/2020. Despite having fairly marginal performance status, he tolerated the treatment reasonably well and he was able to continue with cycle 2 on 01/17/2021. His restaging PET/CT on 02/03/2021 showed improved FDG uptake in mediastinal lymph nodes with a dominant right hilar lymph node SUV decreased to 3.4 from 6.6 on the pretreatment study. Other mediastinal nodes were noted to demonstrate similar improvement. He then continued with cycle 3 of R-CHOP on 02/07/2021 and with cycle 4 on 02/28/2021. On 03/15/2021 he had pulmonary consultation with Dr. Elena, and on 03/20/2021 he underwent bronchoscopy/EBUS with transbronchial needle aspiration of station 10R and station 7 lymph nodes. Pathology at both sites was benign. With that finding, he was followed on expectant management. His medical history is otherwise significant for severe aortic stenosis. He has a history of atrial fibrillation with a prior ablation procedure. He also has a history of Graves' disease and history of C. difficile colitis. His other medical illnesses have been limited to degenerative arthritis/degenerative disease of the spine and benign prostatic hypertrophy. He has a history of having undergone partial small bowel resection for benign obstruction in April 2019. He is a non-smoker, but he does have a history of chewing tobacco. INTERIM HISTORY: In April 2021 he was diagnosed with COVID-19 virus infection. He was given the monoclonal antibody infusion. He did not require hospitalization. He has had gradual recovery. At his follow-up visit in June 2021 he appeared to be showing adequate recovery. He had become aware of a small nodule in his right breast. Evaluation with diagnostic mammogram/ultrasound showed findings consistent with a benign appearing lymph node. His surveillance CT scans on 07/27/2021 showed no evidence of recurrence/progression of the lymphoma. He is seen for a follow-up visit. His main complaint is that he had developed shingles 3 weeks ago. It involved the mid to upper abdomen/back on the left side. He had treatment with famciclovir for 7 days. At this point he is still having severe herpetic neuralgia, to the point that he is having difficulty sleeping. He has had decline in his energy/activity tolerance with the shingles, but prior to that it had been okay. His ECOG score is 1. He still has no taste following the COVID-19 virus infection in April. His weight is down 6 pounds since February. He does not have fever or night sweats. He has not had sore mouth or throat. He does not complain of cough. He does have some shortness of breath. He has had some pain in the chest area with the herpetic neuralgia. He was having nausea, but that is better now. He has a little bit of heartburn. He still has had some pain in the left upper quadrant area which has persisted following his splenectomy. Bowel function is off and on , but adequate. Bladder function has been okay with the tamsulosin. He has had some pain down his spine. He does not complain of headache. He sometimes has dizziness and he sometimes has numbness in his arms and hands at night. Medications: Tamsulosin HCl 1 (0.4 mg) Capsule Oral at bedtime Allergies: Bactrim and HYDROcodone-Acetaminophen. Vital Signs: Performed on Oct 08, 2021 16:07 Height - 70.00 in Weight - 158.4 lbs (HIGH) BSA - 1.89 sq.m BMI - 22.73 Temperature - 98.2 F (LOW) Pulse - 80 /min Respiration - 18 /min BP - 142/80 mm(hg) (HIGH) O2 Sat - 96 % Pain - 8 Fatigue - 2 Physical Examination: Constitutional - He appears generally weak, Eyes - Sclerae nonicteric. Conjunctivae clear, ENMT - No lesions noted in the oral cavity, Hematologic/Lymphatic - No cervical, clavicular, or axillary adenopathy, Respiratory - Lungs sound clear, Cardiovascular - Heart rhythm is regular. There is a II/ systolic murmur. There is no gallop or rub noted, Abdomen - Soft. There is tenderness across the mid to upper abdomen. There is a small herniation at the medial aspect of his left upper quadrant incisional scar. Liver is not enlarged. There is no abdominal mass or ascites noted and there is no inguinal adenopathy, Extremities - No edema, Integumentary - There is residual erythema in the mid to upper abdomen extending around to the back. There appearance is consistent with healing zoster. There are no residual open or vesicular lesions present, Neurologic - No focal neurologic deficits noted. Lab/Imaging: CBC shows hemoglobin 13.6 g, white blood cell count 4700, and platelet count 232,000. Comprehensive metabolic profile is unremarkable. The LDH is normal at 150 U/L. Problem List: 1. 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 He underwent open splenectomy on 10/31/2020. 2. He underwent partial small bowel resection for benign obstruction in April 2019. 3. Atrial fibrillation with prior ablation. 4. He has severe aortic stenosis by echocardiogram. 5. Benign prostatic hypertrophy. 6. Degenerative arthritis/degenerative disease of the spine. 7. He was diagnosed with COVID-19 virus infection in April 2021. Problems Addressed with this Encounter and Plan: 1. 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 He underwent open splenectomy on 10/31/2020. His staging PET/CT showed mild FDG uptake in mediastinal lymph nodes, consistent with either reactive adenopathy or lymphoma. There were no other areas of abnormal uptake. With those findings he was recommended to undergo a course of treatment with R-CHOP chemotherapy for up to 4 cycles. He completed 4 cycles of R-CHOP chemotherapy from 12/26/2020 through 02/28/2021. His restaging PET/CT prior to the 3rd cycle did show improvement in the FDG uptake within the right hilar and mediastinal lymph nodes. As such, it was still unclear as to whether those represent lymphoma versus reactive adenopathy. Following completion of the fourth cycle of chemotherapy, he was seen by Dr. Elena and on 03/20/2021 he underwent bronchoscopy/EBUS with biopsies of station 10 R and station 7 lymph nodes. Pathology was benign. With that finding he was then followed on expectant management. His further clinical course was complicated by COVID-19 virus infection in April 2021. He had gradual recovery. Thus far there has been no evidence of recurrence/progression of the lymphoma. He will be scheduled for a follow-up visit in 1 month. 2. Approximately 3 weeks ago he was diagnosed with herpes zoster in a left mid thoracic distribution. He was given treatment with famciclovir for 7 days. The skin eruption appears to be showing adequate resolution, but he is having pretty severe herpetic neuralgia. I will have him start gabapentin 300 mg 3 times daily and he also will be given steroid therapy with prednisone in a tapering schedule over 3 weeks. Signed By: González Alex M.D. <<Signature on File>>
== END 2021-10-08 06:36 | disposition home or self-care (01) ==
LOC: ONCMED 06:36
PROVIDERS: PCP Family Medicine; Visit Provider Internal Medicine Medical Oncology
DX: C83.37 Diffuse large B-cell lymphoma, spleen (principal); I35.0 Nonrheumatic aortic (valve) stenosis; I48.91 Unspecified atrial fibrillation; G70.00 Myasthenia gravis without (acute) exacerbation; Z86.16 Personal history of COVID-19; N40.0 Benign prostatic hyperplasia without lower urinary tract symptoms; Z79.899 Other long term (current) drug therapy
CPT/HCPCS: 99214

== ENCOUNTER 2021-11-02 08:37 | Outpatient (CLI) | payer MEDICARE, OTHER, SELFPAY ==
--- NOTE | 2021-11-02 08:44 | CT_ITS ---
WS: [id number] CT CHEST, ABDOMEN AND PELVIS WITH CONTRAST. HISTORY: LYMPHOMA TECHNIQUE: Contiguous 5 mm axial imaging performed through the chest, abdomen and pelvis with IV cont rast, oral contrast has been provided. Coronal and sagittal reformats chest. Coronal and sagittal ref ormats through the abdomen and pelvis. All CT scans at [facility] use at least one of these d ose optimization techniques: automated exposure control; mA and/or kV adjustment per patient size (in cludes targeted exams where dose is matched to clinical indication); or iterative reconstruction. CONTRAST: Omnipaque 300; 95 mL IV. DLP: 1198.95 mGy.cm COMPARISON: 07/27/[address]: Mild pulmonary hyperexpansion with emphysema. Nodular opacification with adjacent groundgla ss attenuation towards the lingula. This is new since the prior examination. The nodular component is 7 mm. There is additional linear scarring in the lower lung lenz bilaterally. Atherosclerosis thor acic aorta. No aneurysm. Normal size pulmonary artery. Heart size is normal. No pericardial pleural e ffusion. Moderate [place] coronary artery calcification. RIGHT central line with tip in the distal SVC . There are a few small mediastinal and hilar lymph nodes which are stable. No increase in size and n umber of the lymph nodes. No significant hiatal hernia. Mild thoracic curvature and scoliosis. No osteoblastic or osteolytic disease. Defect in partial obstr uction of a RIGHT lateral mid rib which is probably from old fracture. No change since the prior stud y. Abdomen CT: Prior cholecystectomy. Liver is normal size. Normal portal vein. Spleen has been removed no change in appearance of the pancreas. No adrenal mass. Kidneys are normally enhancing. Parapelvic cyst upper pole LEFT kidney. No solid mass or obstruction. Atherosclerotic changes within the aorta. No aneurysm. Only partial distention of the stomach resulting in wall thickening. No GI tract obstruction. Tortuou s overlapping loops of colon. Proximal small bowel is only partially distended. No adenopathy or ascites identified. Pelvic CT: Moderately well distended urinary bladder. No free fluid in the pelvis. No adenopathy is i dentified. Status post posterior lumbar fusion at L3-4. Interbody spacer at L3-4. No osteoblastic or osteolytic bone disease. There is significant artifact within the abdomen and pelvis from the patient's prior surgeries kris morales beam hardening artifact. CT/CT chest abd pel w con* IMPRESSION: 1. No evidence for lymphadenopathy within the chest, abdomen or pelvis. 2. New, focal LEFT lung opacification (nodular and groundglass opacification). Recommend follow-up chest CT in 3 months. This may be early neoplastic disease or inflammatory. 3. Prior splenectomy. 4. Prior cholecystectomy.
[2021-11-02] MEDS: iohexol 300 mg/mL 100 mL Btl IV (10:43)
[2021-11-02] MEDS: iohexol 300 mg/mL 50 mL Btl PO (10:44)
== END 2021-11-02 08:38 | disposition home or self-care (01) ==
LOC: RAD 08:42
PROVIDERS: PCP Family Medicine; Visit Provider Internal Medicine Medical Oncology
DX: C83.37 Diffuse large B-cell lymphoma, spleen (principal); Z90.49 Acquired absence of other specified parts of digestive tract; Z90.81 Acquired absence of spleen
CPT/HCPCS: 71260; 74177

== ENCOUNTER 2021-11-12 09:26 | Outpatient (CLI) | payer MEDICARE, OTHER, SELFPAY ==
[2021-11-12 09:50] LABS: Basophils % 0.8 %; Eosinophils # 0.1 10^3/uL (0.0-0.8); Eosinophils % 2.1 %; Hemoglobin 13.9 g/dL (11.7-16.6); Lymphocytes # 1.3 10^3/uL (0.8-4.8); Lymphocytes % 34.4 %; Mean Corpuscular HGB Conc 33.9 g/dL (30.0-36.0); Mean Corpuscular Hemoglobin 31.4 pg (28.0-34.0); Mean Corpuscular Volume 92.6 fl (80-94); Mean Platelet Volume 9.4 fL (7.4-10.4); Monocytes # 0.6 10^3/uL (0.2-0.9); Monocytes % 16.5 %; Neutrophils # 1.77 10^3/uL (1.8-7.7); Neutrophils % 45.7 %; Nucleated Red Blood Cells % 0 %; Platelet Count 295 10^3/cmm (130-400); Red Blood Count 4.43 10^6/uL (4.1-5.3); White Blood Count 3.9 10^3/uL (4.0-10.0)
[2021-11-12 10:12] LABS: Alanine Aminotransferase 20 U/L (0-41); Albumin Level 3.9 g/dL (3.5-5.2); Alkaline Phosphatase 90 IU/L (40-130); Aspartate Amino Transferase 19 U/L (0-40); Blood Urea Nitrogen 9 mg/dL (8-23); Calcium 8.3 mg/dL (8.5-10.5); Carbon Dioxide 28 mmol/L (22-29); Chloride 103 mmol/L (98-107); Globulin 2.5 g/dL (1.3-4.6); Glomerular Filtration Rate 133.2 mL/min (90-130); Glucose 74 mg/dL (65-115); Lactate Dehydrogenase 144 U/L (135-225); Osmolality Calculated 287 mOsm/kg (285-295); Sodium 140 mmol/L (136-145); Total Bilirubin 0.3 mg/dL (0.15-1.2); Total Protein 6.4 g/dL (6.6-8.7)
--- NOTE | 2021-11-14 10:04 | ONC FU_ITS ---
Dr. Alex Patient Follow-Up Note Patient: Rehan Lambert Unit #: [id number]: 1950 Dicatated By: González Alex M.D.Date of Visit:Nov 12, 2021 Onc Med Follow-up/Prog Note Chief Complaint: Lymphoma. 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 He had presented with an enlarging splenic mass. It was first noted in April 2019 when he underwent surgery for small bowel obstruction, apparently due to benign adhesions. In August [address] urogram as part of an evaluation for hematuria. That study reported a low-attenuation lesion within the spleen measuring 4.4 x 6.1 cm compared to 1.9 x 1.8 cm in the April 2019 study. The visualized portions of the liver appeared normal. There were just a few subcentimeter retroperitoneal and pelvic lymph nodes, and there were no abnormally enlarged retroperitoneal or pelvic lymph nodes noted. An MRI of the abdomen on 09/27/2020 showed a solid enlarging hypervascular mass arising from the medial aspect of the spleen. It measured 7 x 4.9 cm. It demonstrated iso to minimal hyperintensity relative to the spleen and it was felt that the appearance was not typical of a benign hemangioma or hamartoma. An underlying neoplastic process was suspected. He was seen by Dr. Jones on 10/04/2020, and splenectomy was recommended. On 10/31/2020 he underwent exploratory laparotomy with splenectomy. Pathology showed aggressive B-cell lymphoma consistent with diffuse large B-cell lymphoma, germinal center type. The B cells were positive for CD5, CD10, CD20, BCL2, BCL6, and Mum1. They were negative for CD3, CD30, and BCL1. By FISH analysis, the MYC rearrangement and MYC amplification were not detected. 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 A variant of BCL-2 gene rearrangement with an unknown gene could not be excluded. I had seen him initially on 11/14/2020. At that point he was still not feeling very good. He reported having a bad cough and is still having significant abdominal pain. At that point he still had very limited activity, and his appetite was very poor. I did opt to give him antibiotic therapy with Levaquin. He had staging PET/CT on 12/02/2020. It showed mild activity in mediastinal lymph nodes, including the left paratracheal, subaortic, subcarinal, and right hilar territories. The dominant was a right hilar lymph node with SUV 6.6. The findings were felt to be consistent with either reactive adenopathy or lymphoma. There were no other areas of abnormal uptake. He had further evaluation with echocardiogram on 12/12/2020. It showed normal left ventricular systolic function with ejection fraction estimated at 59%. There was grade 1/4 diastolic dysfunction. Also noted was severe aortic valve calcification and severe aortic valve stenosis with a mean gradient of 19.8 mmHg. The KORI was 0.98 cm???. There was just a trace of aortic valve regurgitation. With those findings he was recommended to undergo treatment with R-CHOP chemotherapy for up to 4 cycles, depending on his response by follow-up PET/CT after 2 cycles. He began cycle 1 of R-CHOP on 12/26/2020. Despite having fairly marginal performance status, he tolerated the treatment reasonably well and he was able to continue with cycle 2 on 01/17/2021. His restaging PET/CT on 02/03/2021 showed improved FDG uptake in mediastinal lymph nodes with a dominant right hilar lymph node SUV decreased to 3.4 from 6.6 on the pretreatment study. Other mediastinal nodes were noted to demonstrate similar improvement. He then continued with cycle 3 of R-CHOP on 02/07/2021 and with cycle 4 on 02/28/2021. On 03/15/2021 he had pulmonary consultation with Dr. Elena, and on 03/20/2021 he underwent bronchoscopy/EBUS with transbronchial needle aspiration of station 10R and station 7 lymph nodes. Pathology at both sites was benign. With that finding, he was followed on expectant management. His medical history is otherwise significant for severe aortic stenosis. He has a history of atrial fibrillation with a prior ablation procedure. He also has a history of Graves' disease and history of C. difficile colitis. His other medical illnesses have been limited to degenerative arthritis/degenerative disease of the spine and benign prostatic hypertrophy. He has a history of having undergone partial small bowel resection for benign obstruction in April 2019. He is a non-smoker, but he does have a history of chewing tobacco. INTERIM HISTORY: In April 2021 he was diagnosed with COVID-19 virus infection. He was given the monoclonal antibody infusion. He did not require hospitalization. At his follow-up visit in June 2021 he appeared to be showing adequate recovery. He had become aware of a small nodule in his right breast. Evaluation with diagnostic mammogram/ultrasound showed findings consistent with a benign appearing lymph node. His surveillance CT scans on 07/27/2021 showed no evidence of recurrence/progression of the lymphoma. He was seen for a follow-up visit again on Oct 08, 2021. At that point he had developed a significant herpes zoster skin eruption in the upper left abdomen extending around to the back. He had been given treatment with famciclovir for 7 days. He was having severe neuralgia associated with it. He was treated symptomatically with gabapentin and oxycodone. His surveillance CT scans on 11/02/2021 showed a focal area of nodular and groundglass opacification in the left lung towards the lingula, felt to be most likely inflammatory, but early neoplastic disease was not excluded. There was no lymphadenopathy noted within the chest, abdomen, or pelvis. He is seen for a follow-up visit. He is still not been feeling good generally, as the shingles have still been activating the fire out of him. The zoster lesions had pretty much resolved, but they recently became more prominent again. He does not seem to be getting much benefit with gabapentin despite having the dosage escalated to 600 mg 3 times daily. He does get some benefit with the oxycodone. He says his energy is not what it used to be, but he is able to do some light work. ECOG score is 1. Appetite is still not good, as he still cannot taste or smell since the COVID-19 infection. He has not had fever. He occasionally has sweating at night. He has not had sore throat or difficulty swallowing. He does not complain of cough. He says his breathing is okay, though not what it used to be. He has not been having chest pain. He has no GI or complaints. In addition to the herpetic neuralgia he also has pain in his back and hips. He occasionally wakes up in the morning with a headache, but it goes away. He sometimes has dizziness. He has no numbness/paresthesia or other focal neurologic symptoms. Medications: Tamsulosin HCl 1 (0.4 mg) Capsule Oral at bedtime Allergies: Bactrim and HYDROcodone-Acetaminophen. Vital Signs: Performed on Nov 12, 2021 10:54 Height - 70.00 in Weight - 158.0 lbs (LOW) BSA - 1.89 sq.m BMI - 22.67 Temperature - 98.9 F (HIGH) Pulse - 79 /min Respiration - 16 /min BP - 130/78 mm(hg) O2 Sat - 98 % Pain - 6 Fatigue - 6 Physical Examination: Constitutional - He appears somewhat weak generally, Eyes - Sclerae nonicteric. Conjunctivae clear, ENMT - No lesions noted in the oral cavity, Hematologic/Lymphatic - No cervical, clavicular, or axillary adenopathy, Respiratory - Lungs sound clear, Cardiovascular - Heart rhythm is regular. There is a II/ systolic murmur. There is no gallop or rub noted, Abdomen - Soft. There is still mild tenderness in the left upper quadrant area. Liver is not enlarged. There is no abdominal mass or ascites noted and there is no inguinal adenopathy, Extremities - No edema, Integumentary - There is a persistent herpes zoster skin eruption in the upper left abdomen extending around to the back.The lesions are not vesicular, but they have become more erythematous, Neurologic - No focal neurologic deficits noted. Lab/Imaging: Test performed on Nov 12, 2021 09:38 LDH (Total) 144 U/L Sodium 140 mmol/L Potassium 4.0 mmol/L Chloride 103 mmol/L CO2 28 mmol/L Anion Gap 13.0 BUN 9 mg/dL Creatinine 0.6 mg/dL Cr Clearance (Est) 113.6300 mL/min eGFR 133.2 mL/min Glucose 74 mg/dL Osmolality - Calculated 287 mOsm/kg Calcium 8.3 mg/dL Protein, Total 6.4 g/dL Albumin 3.9 g/dL Globulin 2.5 g/dL Bilirubin, Total 0.3 mg/dL ALT (SGPT) 20 U/L AST (SGOT) 19 U/L Alkaline Phosphatase 90 IU/L WBC 3.9 10 3/uL RBC 4.43 10 6/uL HGB 13.9 g/dL HCT 41.0 % MCV 92.6 fl MCH 31.4 pg MCHC 33.9 g/dL RDW 14.0 % Platelet Count 295 10 3/cmm MPV 9.4 fL Neutrophils 1.77 10 3/uL Lymphocytes 1.3 10 3/uL Monocytes 0.6 10 3/uL Eosinophils 0.1 10 3/uL Basophils 0.0 10 3/uL Neutrophil % 45.7 % Lymphocyte % 34.4 % Monocyte % 16.5 % Eosinophil % 2.1 % Basophils % 0.8 % NRBC % 0 % Problem List: 1. 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 He underwent open splenectomy on 10/31/2020. 2. He underwent partial small bowel resection for benign obstruction in April 2019. 3. Atrial fibrillation with prior ablation. 4. He has severe aortic stenosis by echocardiogram. 5. Benign prostatic hypertrophy. 6. Degenerative arthritis/degenerative disease of the spine. 7. He was diagnosed with COVID-19 virus infection in April 2021. Problems Addressed with this Encounter and Plan: 1. 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 He underwent open splenectomy on 10/31/2020. His staging PET/CT showed mild FDG uptake in mediastinal lymph nodes, consistent with either reactive adenopathy or lymphoma. There were no other areas of abnormal uptake. With those findings he was recommended to undergo a course of treatment with R-CHOP chemotherapy for up to 4 cycles. He completed 4 cycles of R-CHOP chemotherapy from 12/26/2020 through 02/28/2021. His restaging PET/CT prior to the 3rd cycle did show improvement in the FDG uptake within the right hilar and mediastinal lymph nodes. As such, it was still unclear as to whether those represent lymphoma versus reactive adenopathy. Following completion of the fourth cycle of chemotherapy, he was seen by Dr. Elena and on 03/20/2021 he underwent bronchoscopy/EBUS with biopsies of station 10 R and station 7 lymph nodes. Pathology was benign. With that finding he was then followed on expectant management. His further clinical course was complicated by COVID-19 virus infection in April 2021. He had gradual recovery. His restaging CT scans on 11/02/2021 showed a focal area of opacification in the left lung near the lingula, felt to be most likely inflammatory. Continued surveillance was recommended, though. Overall, he has continued to have somewhat marginal performance status following the COVID-19 infection, but there has been no evidence of recurrence/progression of the lymphoma. He remains on expectant management. I will see him again in 3 months, or sooner as needed. 2. In September 2021 he was diagnosed with herpes zoster in a left mid thoracic distribution. He was given treatment with famciclovir for 7 days. He has had associated severe herpetic neuralgia, which has persisted. In addition, the herpes zoster skin lesions her to have recently become more acutely activated. As such, he will be given another 7 days of antiviral treatment with valacyclovir 1 g 3 times daily. I will stop the gabapentin, as he seems to be getting no benefit with it. The oxycodone dosage will be increased to 10 mg take up to 4 times daily as needed. He will now start duloxetine at 30 mg daily for 7 days, then 60 mg daily. He also will start trazodone 50 mg at bedtime. Signed By: González Alex M.D. <<Signature on File>>
== END 2021-11-12 09:27 | disposition home or self-care (01) ==
LOC: ONCMED 09:28
PROVIDERS: PCP Family Medicine; Visit Provider Internal Medicine Medical Oncology
DX: Z08 Encounter for follow-up examination after completed treatment for malignant neoplasm (principal); Z85.72 Personal history of non-Hodgkin lymphomas; I48.91 Unspecified atrial fibrillation; I35.0 Nonrheumatic aortic (valve) stenosis; N40.0 Benign prostatic hyperplasia without lower urinary tract symptoms; M19.91 Primary osteoarthritis, unspecified site; Z86.16 Personal history of COVID-19; B02.29 Other postherpetic nervous system involvement
CPT/HCPCS: 36591; 80053; 83615; 85025; 99215

== ENCOUNTER 2022-02-04 12:34 | Outpatient (CLI) | payer MEDICARE, OTHER, SELFPAY ==
--- NOTE | 2022-02-04 12:48 | CT_ITS ---
WS: [id number] CT CHEST WITH INTRAVENOUS CONTRAST HISTORY: PULMONARY NODULE TECHNIQUE: Contiguous 5 mm axial imaging performed on the thorax. Coronal and sagittal reformats are submitted. All CT scans at [facility] use at least one of these dose optimization techniques: automated exposure control; mA and/or kV adjustment per patient size (includes targeted exams where dose is matched to clinical indication); or iterative reconstruction. CONTRAST: Omnipaque 300; 95 mL IV. DLP: 645.11 mGy.cm COMPARISON: 11/02/2021 and 07/27/2021 Lungs and central airway: Pulmonary hyperexpansion. Linear nodule measuring 6 mm in the RIGHT upper l obe, image 42 series 5 has been present on prior studies and negative on a prior PET/CT. Groundglass and subsolid nodularity at the lingula has resolved. There is no residual opacifications now present. Linear areas of scar/ atelectasis at the RIGHT lung base and lingula. No new nodule or mass. Pleura: Normal. No pleural effusion. Heart and pericardium: Normal size heart. No pericardial effusion. Moderate deposition of atheroscler otic disease within the coronary arteries. Mediastinum and sary: Bilateral hilar lymph nodes. The largest lymph nodes on the RIGHT measure up to 12 mm. Similar to the prior study. No new or enlarging lymph nodes. Vessels: Mild atherosclerosis aorta. Normal size pulmonary artery. Chest wall and lower neck: RIGHT Mediport is noted with tip in the SVC. Upper abdomen: Prior cholecystectomy. There is metallic fragment again noted at the central liver. He terogeneous echotexture throughout the liver but no mass is identified. Prior splenectomy. No change in appearance of the splenectomy bed. Osseous structures: Curvature thoracic spine. No osteoblastic or osteolytic bone disease identified. Healed rib fracture mid lateral RIGHT thorax. CT/CT chest w con* [id number] IMPRESSION: 1. Complete interval resolution nodular opacification at the lingula. 2. Emphysema. No new or enlarging pulmonary nodules or masses. 3. Indeterminate but stable mediastinal lymph nodes. The largest measures 12 m m at the RIGHT hilum. 4. Moderate coronary artery atherosclerosis. 5. Prior cholecystectomy and heterogeneous appearance of the liver with no mas s. 6. Prior splenectomy. Stable appearance of the splenectomy bed.
[2022-02-04] MEDS: iohexol 300 mg/mL 100 mL Btl IV (13:28)
== END 2022-02-04 12:35 | disposition home or self-care (01) ==
LOC: RAD 12:40
PROVIDERS: PCP Family Medicine; Visit Provider Internal Medicine Medical Oncology
DX: J43.9 Emphysema, unspecified (principal); I25.10 Atherosclerotic heart disease of native coronary artery without angina pectoris; R91.8 Other nonspecific abnormal finding of lung field
CPT/HCPCS: 71260

== ENCOUNTER 2022-02-11 09:50 | Outpatient (CLI) | payer MEDICARE, OTHER, SELFPAY ==
[2022-02-11 10:16] LABS: Basophils % 0.5 %; Eosinophils # 0.1 10^3/uL (0.0-0.8); Eosinophils % 1.6 %; Hematocrit 40.3 % (42.0-52.0); Hemoglobin 13.3 g/dL (11.7-16.6); Lymphocytes # 1.6 10^3/uL (0.8-4.8); Mean Corpuscular Hemoglobin 31.3 pg (28.0-34.0); Mean Corpuscular Volume 94.8 fl (80-94); Mean Platelet Volume 10.1 fL (7.4-10.4); Monocytes # 0.7 10^3/uL (0.2-0.9); Monocytes % 11.9 %; Neutrophils # 3.23 10^3/uL (1.8-7.7); Neutrophils % 57.6 %; Nucleated Red Blood Cells % 0 %; Platelet Count 222 10^3/cmm (130-400); Red Blood Count 4.25 10^6/uL (4.1-5.3); Red Cell Distribution Width 12.2 % (12.1-15.1); White Blood Count 5.6 10^3/uL (4.0-10.0)
[2022-02-11 10:44] LABS: Alanine Aminotransferase 24 U/L (0-41); Albumin Level 4.1 g/dL (3.5-5.2); Alkaline Phosphatase 89 IU/L (40-130); Anion Gap 11.7 (5-19); Aspartate Amino Transferase 23 U/L (0-40); Blood Urea Nitrogen 10 mg/dL (8-23); Carbon Dioxide 27 mmol/L (22-29); Chloride 103 mmol/L (98-107); Globulin 3.1 g/dL (1.3-4.6); Glomerular Filtration Rate 133.2 mL/min (90-130); Glucose 81 mg/dL (65-115); Lactate Dehydrogenase 173 U/L (135-225); Osmolality Calculated 284 mOsm/kg (285-295); Potassium 3.7 mmol/L (3.5-5.1); Sodium 138 mmol/L (136-145); Total Bilirubin 0.4 mg/dL (0.15-1.2); Total Protein 7.2 g/dL (6.6-8.7)
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
== END 2022-02-11 09:51 | disposition home or self-care (01) ==
PROVIDERS: PCP Family Medicine; Visit Provider Nurse Practitioner Family
DX: C83.37 Diffuse large B-cell lymphoma, spleen (principal); Z90.81 Acquired absence of spleen; Z86.16 Personal history of COVID-19; B02.29 Other postherpetic nervous system involvement; Z79.891 Long term (current) use of opiate analgesic
CPT/HCPCS: 36591; 80053; 83615; 85025; 99214

== ENCOUNTER 2022-04-16 13:26 | Oncology outpatient (recurring) (ONCR) | payer MEDICARE, OTHER, SELFPAY | END 2022-04-18 23:59 | disposition home or self-care (01) | PROVIDERS: PCP Family Medicine; Visit Provider Internal Medicine Medical Oncology | DX: Z45.2 Encounter for adjustment and management of vascular access device (principal) | CPT/HCPCS: 96523 ==

== ENCOUNTER 2022-05-15 11:00 | Oncology outpatient (recurring) (ONCR) | payer MEDICARE, OTHER, SELFPAY ==
--- NOTE | 2022-05-10 11:26 | CT_ITS ---
WS: [id number] CT CHEST, ABDOMEN AND PELVIS WITH CONTRAST HISTORY: LYMPHOMA TECHNIQUE: Contiguous 5 mm axial imaging performed through the chest, abdomen and pelvis with IV cont rast, oral contrast has been provided. Coronal and sagittal reformats chest. Coronal and sagittal ref ormats through the abdomen and pelvis. All CT scans at [facility] use at least one of these d ose optimization techniques: automated exposure control; mA and/or kV adjustment per patient size (in cludes targeted exams where dose is matched to clinical indication); or iterative reconstruction. CONTRAST: Omnipaque 350; 95 mL IV. DLP: 1433.07 mGy.cm COMPARISON: 02/04/2022, 11/02/[address]: Lungs are clear and well aerated. No mass or pulmonary nodule. No pneumonia. Hyperexpansion from emphysema. Thin areas of atelectasis at the lung bases. Mild prominence of the heart. Coronary artery atherosclerosis and mild atherosclerosis aorta. No aneurysm. Normal size pulmonary artery. Aga in noted is a 12 mm RIGHT hilar lymph node which is unchanged. No new or enlarging lymph nodes. Abdomen CT: Liver is normal size. No lesions within the liver. Normal portal vein. Prior cholecystect brynn. Metallic artifact with beam hardening in the RIGHT lobe of the liver. Spleen has been surgically removed. There is a well-circumscribed nodule similar to spleen measuring 12 mm at the splenic bed w hich is probably a splenule. Normal appearance of the pancreas. No adrenal mass. Normal appearance of each kidney. Mild atherosclerosis aorta. No nondistended stomach. No small bowel obstruction. Extensive fecal retention. Sigmoid diverticulosi s. No free air or free fluid. No mesenteric or retroperitoneal adenopathy. Pelvic CT: No free fluid in the pelvis. Prostate gland enlargement with mild encroachment into the bl adder. Prior RIGHT hip arthroplasty. Posterior lumbar fusion with interbody spacer at L3-4. No osteoblastic or osteolytic lesions. CT/CT chest abd pel w con* IMPRESSION: 1. No enlarging or new lymph nodes within the chest, abdomen or pelvis. 2. Stable 12 mm RIGHT hilar lymph node. 3. Status post splenectomy. No recurrent mass at the splenectomy bed. 4. Sigmoid diverticulosis without acute diverticulitis. 5. Prior cholecystectomy.
[2022-05-10] MEDS: barium sulfate 450 mL Oral Susp PO (12:17)
[2022-05-10 12:56] LABS: Blood Urea Nitrogen 10 mg/dL (8-23)
[2022-05-10 12:57] LABS: Glomerular Filtration Rate 95.6 mL/min (90-130)
[2022-05-10] MEDS: iohexol 350 mg/mL 100 mL Btl IV (12:59)
[2022-05-15] MEDS: alteplase 1 mg/mL SDV 2 mL 2 MG INTRACATH (11:38)
[2022-05-15 12:28] LABS: Basophils # 0.1 10^3/uL (0.0-0.1); Basophils % 1.2 %; Eosinophils # 0.1 10^3/uL (0.0-0.8); Eosinophils % 1.4 %; Hematocrit 42.4 % (42.0-52.0); Hemoglobin 13.8 g/dL (11.7-16.6); Lymphocytes # 1.4 10^3/uL (0.8-4.8); Lymphocytes % 33.6 %; Mean Corpuscular HGB Conc 32.5 g/dL (30.0-36.0); Mean Corpuscular Hemoglobin 30.6 pg (28.0-34.0); Mean Platelet Volume 10.5 fL (7.4-10.4); Monocytes # 0.7 10^3/uL (0.2-0.9); Monocytes % 15.4 %; Neutrophils # 2.03 10^3/uL (1.8-7.7); Neutrophils % 48.2 %; Nucleated Red Blood Cells % 0 %; Platelet Count 227 10^3/cmm (130-400); Red Blood Count 4.51 10^6/uL (4.1-5.3); Red Cell Distribution Width 13.1 % (12.1-15.1); White Blood Count 4.2 10^3/uL (4.0-10.0)
[2022-05-15 12:37] LABS: Alanine Aminotransferase 19 U/L (0-41); Albumin Level 4.3 g/dL (3.5-5.2); Alkaline Phosphatase 96 IU/L (40-130); Aspartate Amino Transferase 21 U/L (0-40); Blood Urea Nitrogen 11 mg/dL (8-23); Calcium 8.9 mg/dL (8.5-10.5); Carbon Dioxide 28 mmol/L (22-29); Chloride 104 mmol/L (98-107); Globulin 2.5 g/dL (1.3-4.6); Glomerular Filtration Rate 133.2 mL/min (90-130); Glucose 96 mg/dL (65-115); Osmolality Calculated 289 mOsm/kg (285-295); Sodium 140 mmol/L (136-145); Total Bilirubin 0.4 mg/dL (0.15-1.2); Total Protein 6.8 g/dL (6.6-8.7)
[2022-05-15 12:39] LABS: Anion Gap 12.2 (5-19); Potassium 4.2 mmol/L (3.5-5.1)
== END 2022-05-19 23:59 | disposition home or self-care (01) ==
PROVIDERS: Nurse Practitioner Family; PCP Family Medicine; Visit Provider Internal Medicine Medical Oncology
DX: Z08 Encounter for follow-up examination after completed treatment for malignant neoplasm (principal); K59.00 Constipation, unspecified; R10.11 Right upper quadrant pain; Z85.72 Personal history of non-Hodgkin lymphomas; Z87.891 Personal history of nicotine dependence; Z92.21 Personal history of antineoplastic chemotherapy
CPT/HCPCS: 36591; 36593; 71260; 74177; 80053; 82565; 84520; 85025; 99214; G0463; J2997

== ENCOUNTER 2022-07-16 08:16 | Oncology outpatient (recurring) (ONCR) | payer MEDICARE, OTHER, SELFPAY | END 2022-07-19 23:59 | disposition home or self-care (01) | PROVIDERS: PCP Family Medicine; Visit Provider Internal Medicine Medical Oncology | DX: Z45.2 Encounter for adjustment and management of vascular access device (principal) | CPT/HCPCS: 96523 ==

== ENCOUNTER 2022-08-27 08:54 | Oncology outpatient (recurring) (ONCR) | payer MEDICARE, OTHER, SELFPAY | END 2022-09-18 23:59 | disposition home or self-care (01) | PROVIDERS: PCP Family Medicine; Visit Provider Internal Medicine Medical Oncology | DX: Z45.2 Encounter for adjustment and management of vascular access device (principal) | CPT/HCPCS: 96523 ==

== ENCOUNTER 2022-09-26 08:55 | Oncology outpatient (recurring) (ONCR) | payer MEDICARE, OTHER, SELFPAY | END 2022-10-19 23:59 | disposition home or self-care (01) | PROVIDERS: PCP Family Medicine; Visit Provider Internal Medicine Medical Oncology | DX: Z45.2 Encounter for adjustment and management of vascular access device (principal); Z95.828 Presence of other vascular implants and grafts | CPT/HCPCS: 96523 ==

== ENCOUNTER → 2022-11-11 15:28 | Outpatient (BNVA) | payer MEDICARE, OTHER, SELFPAY | PROVIDERS: PCP Family Medicine; Visit Provider Nurse Practitioner Family | DX: S99.921A Unspecified injury of right foot, initial encounter (principal); S92.514A Nondisplaced fracture of proximal phalanx of right lesser toe(s), initial encounter for closed fracture; X58.XXXA Exposure to other specified factors, initial encounter | CPT/HCPCS: 73630 ==

== ENCOUNTER 2022-12-11 11:50 | Oncology outpatient (recurring) (ONCR) | payer MEDICARE, OTHER, SELFPAY ==
[2022-12-11 12:29] LABS: Basophils % 0.8 %; Eosinophils # 0.1 10^3/uL (0.0-0.8); Eosinophils % 1.9 %; Hematocrit 42.9 % (42.0-52.0); Hemoglobin 13.9 g/dL (11.7-16.6); Lymphocytes # 2.1 10^3/uL (0.8-4.8); Lymphocytes % 41.1 %; Mean Corpuscular HGB Conc 32.4 g/dL (30.0-36.0); Mean Corpuscular Hemoglobin 30.3 pg (28.0-34.0); Mean Corpuscular Volume 93.5 fl (80-94); Mean Platelet Volume 10.1 fL (7.4-10.4); Monocytes # 0.9 10^3/uL (0.2-0.9); Monocytes % 16.3 %; Neutrophils # 2.07 10^3/uL (1.8-7.7); Neutrophils % 39.7 %; Nucleated Red Blood Cells % 0 %; Platelet Count 231 10^3/cmm (130-400); Red Blood Count 4.59 10^6/uL (4.1-5.3); Red Cell Distribution Width 13.2 % (12.1-15.1); White Blood Count 5.2 10^3/uL (4.0-10.0)
[2022-12-11 12:44] LABS: Alanine Aminotransferase 14 U/L (0-41); Albumin Level 3.8 g/dL (3.5-5.2); Alkaline Phosphatase 98 U/L (40-130); Anion Gap 11.9 (5-19); Aspartate Amino Transferase 23 U/L (0-40); Blood Urea Nitrogen 8 mg/dL (8-23); Calcium 8.4 mg/dL (8.5-10.5); Carbon Dioxide 28 mmol/L (22-29); Chloride 102 mmol/L (98-107); Globulin 2.8 g/dL (1.3-4.6); Glucose 97 mg/dL (65-115); Lactate Dehydrogenase 151 U/L (135-225); Osmolality Calculated 284 mOsm/kg (285-295); Potassium 3.9 mmol/L (3.5-5.1); Sodium 138 mmol/L (136-145); Total Bilirubin 0.5 mg/dL (0.15-1.2); Total Protein 6.6 g/dL (6.6-8.7)
[2022-12-11 13:09] LABS: Slide Review Slide Review Perform
== END 2022-12-17 23:59 | disposition home or self-care (01) ==
LOC: ONCMED 11:51
PROVIDERS: PCP Family Medicine; Visit Provider Internal Medicine Medical Oncology
DX: Z08 Encounter for follow-up examination after completed treatment for malignant neoplasm (principal); Z85.72 Personal history of non-Hodgkin lymphomas; R10.84 Generalized abdominal pain; R07.81 Pleurodynia; Z87.891 Personal history of nicotine dependence; Z92.21 Personal history of antineoplastic chemotherapy; Z92.3 Personal history of irradiation
CPT/HCPCS: 36591; 80053; 83615; 85025; 99214

== ENCOUNTER 2023-01-13 06:57 | Outpatient (CLI) | payer MEDICARE, OTHER, SELFPAY ==
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
[2023-01-13] MEDS: iohexol 350 mg/mL 500 mL Btl (per mL) PO (07:50)
[2023-01-13] MEDS: iohexol 350 mg/mL 500 mL Btl (per mL) IV (08:30)
== END 2023-01-13 06:58 | disposition home or self-care (01) ==
LOC: RAD 06:59
PROVIDERS: PCP Family Medicine; Visit Provider Nurse Practitioner
DX: R10.84 Generalized abdominal pain (principal)
CPT/HCPCS: 71260; 74177; Q9967

== ENCOUNTER 2023-01-13 08:38 | Oncology outpatient (recurring) (ONCR) | payer MEDICARE, OTHER, SELFPAY | END 2023-01-17 23:59 | disposition home or self-care (01) | PROVIDERS: PCP Family Medicine; Visit Provider Internal Medicine Medical Oncology | DX: Z45.2 Encounter for adjustment and management of vascular access device (principal); R10.84 Generalized abdominal pain | CPT/HCPCS: 71260; 74177; 96523; Q9967 ==

== ENCOUNTER → 2023-01-28 13:25 | Outpatient (BNVA) | payer MEDICARE, OTHER, SELFPAY | PROVIDERS: PCP Family Medicine; Visit Provider Orthopaedic Surgery | DX: M54.2 Cervicalgia (principal); Z98.1 Arthrodesis status | CPT/HCPCS: 72050; 99204 ==

== ENCOUNTER 2023-02-13 13:40 | Oncology outpatient (recurring) (ONCR) | payer MEDICARE, OTHER, SELFPAY ==
[2023-02-13 14:06] VITALS: BP 159/97; PULSE 71; RESP 16; TEMP 37.3; O2SAT 97
== END 2023-02-16 23:59 | disposition home or self-care (01) ==
PROVIDERS: PCP Family Medicine; Visit Provider Internal Medicine Medical Oncology
DX: Z45.2 Encounter for adjustment and management of vascular access device (principal)
CPT/HCPCS: J1642

== ENCOUNTER 2023-02-13 14:24 | Outpatient (CLI) | payer MEDICARE, OTHER, SELFPAY ==
--- NOTE | 2023-02-13 15:15 | MR_ITS ---
WS: [id number] MRI CERVICAL SPINE NONCONTRAST HISTORY: neck pain COMPARISON: None available. Technique: Multiplanar, multisequence noncontrast imaging of the cervical spine. Mild increase in the cervical lordosis. Prior anterior cervical fusion at C6-7. No fractures or marro w edema. Signal within the cervical cord is normal. Visualized posterior fossa is unremarkable. Craniocervical junction, C1 and C2 relationship, odontoid process and soft tissues are normal. C2-C3: Mild disc bulging. No stenosis. C3-C4: Mild annular disc bulging and facet arthritis. Mild foraminal narrowing. C4-C5: Osteophytic ridging and annular disc bulging. Mild foraminal narrowing. C5-C6: Mild annular disc bulging and osteophytic ridging. Bilateral facet joint arthritis. Mild maciel inal stenosis. C6-C7: Mild osteophytic ridging. Mild central and foraminal narrowing. C7-T1: Diffuse annular disc bulging and osteophytic ridging. Mild central and foraminal stenosis. Paraspinal soft tissue are normal. MR/MR cervical spin wo con* [id number] IMPRESSION: 1. Prior anterior cervical fusion at C6-7. 2. Multilevel facet joint arthritis. 3. Mild central and bilateral foraminal stenosis at C6-7 and C7-T1. 4. Mild foraminal stenosis at C3-4, C4-5 and C5-6.
== END 2023-02-13 14:25 | disposition home or self-care (01) ==
LOC: RAD 14:26
PROVIDERS: PCP Family Medicine; Visit Provider Orthopaedic Surgery
DX: M47.812 Spondylosis without myelopathy or radiculopathy, cervical region (principal); Z98.1 Arthrodesis status; M48.02 Spinal stenosis, cervical region
CPT/HCPCS: 72141

== ENCOUNTER → 2023-03-04 07:51 | Outpatient (BNVA) | payer MEDICARE, OTHER, SELFPAY | PROVIDERS: PCP Family Medicine; Visit Provider Orthopaedic Surgery | DX: M47.22 Other spondylosis with radiculopathy, cervical region (principal) | CPT/HCPCS: 99214 ==

== ENCOUNTER 2023-03-10 14:09 | Oncology outpatient (recurring) (ONCR) | payer MEDICARE, OTHER, SELFPAY ==
[2023-03-10 14:30] VITALS: BP 129/78; PULSE 74; RESP 18; TEMP 36.4; O2SAT 98
[2023-03-10 14:32] VITALS: BP 129/78; PULSE 69; RESP 18; TEMP 36.4; O2SAT 97
== END 2023-03-19 23:59 | disposition home or self-care (01) ==
LOC: ONCMED 14:10
PROVIDERS: PCP Family Medicine; Visit Provider Internal Medicine Medical Oncology
DX: Z45.2 Encounter for adjustment and management of vascular access device (principal)
CPT/HCPCS: 96523; J1642

== ENCOUNTER 2023-04-07 14:18 | Oncology outpatient (recurring) (ONCR) | payer MEDICARE, OTHER, SELFPAY ==
[2023-04-07 14:25] VITALS: BP 133/80; PULSE 69; RESP 18; TEMP 37.4; O2SAT 97
== END 2023-04-18 23:59 | disposition home or self-care (01) ==
PROVIDERS: PCP Family Medicine; Visit Provider Internal Medicine Medical Oncology
DX: Z45.2 Encounter for adjustment and management of vascular access device (principal); Z53.9 Procedure and treatment not carried out, unspecified reason
CPT/HCPCS: 96523; J1642

== ENCOUNTER 2023-05-05 14:18 | Oncology outpatient (recurring) (ONCR) | payer MEDICARE, OTHER, SELFPAY ==
[2023-05-05 14:30] VITALS: BP 175/92; PULSE 51; RESP 18; TEMP 37.3; O2SAT 100
== END 2023-05-19 23:59 | disposition home or self-care (01) ==
PROVIDERS: PCP Family Medicine; Visit Provider Internal Medicine Medical Oncology
DX: Z45.2 Encounter for adjustment and management of vascular access device (principal)
CPT/HCPCS: 96523; J1642

== ENCOUNTER 2023-06-05 14:20 | Oncology outpatient (recurring) (ONCR) | payer MEDICARE, OTHER, SELFPAY ==
[2023-06-05 14:46] VITALS: BP 136/80; PULSE 71; RESP 18; TEMP 37.4; O2SAT 97
== END 2023-06-19 23:59 | disposition home or self-care (01) ==
LOC: ONCMED 14:20
PROVIDERS: PCP Family Medicine; Visit Provider Internal Medicine Medical Oncology
DX: Z45.2 Encounter for adjustment and management of vascular access device (principal)
CPT/HCPCS: 96523; J1642

== ENCOUNTER → 2023-06-25 10:09 | Outpatient (BNVA) | payer MEDICARE, SELFPAY | PROVIDERS: PCP Family Medicine; Visit Provider Family Medicine | DX: Z01.818 Encounter for other preprocedural examination (principal) | CPT/HCPCS: 80053; 81000; 85025 ==

== ENCOUNTER 2023-06-30 10:12 | Day surgery (SDC) | payer MEDICARE, OTHER, SELFPAY ==
[2023-06-26 09:54] VITALS: BMI 21.4
[2023-06-30] VITALS (15 sets, daily range): BP systolic 141–187; BP diastolic 71–99; PULSE 68–82; RESP 13–24; TEMP 36.5–37; O2SAT 94–100
--- NOTE | 2023-06-30 | XR_ITS ---
WS: [id number] Exam: XR cervical spine 3V* [id number] Date/Time of Exam: 06/30/2023 12:00 AM Reason For Exam: ACDF C5-6; or pics Intraoperative AP and lateral images of the cervical spine are submitted. The images depict anterior fusion with plate and screw fixation at C6-7 as well as anterior screw fixation of C5 and 6 with a di sc spacer in place. An ET tube is noted in the region of the airway. A vascular catheter seen in the region of the SVC.
[2023-06-30] MEDS: sodium chloride 0.9% 1,000 ML 30 ML IV (11:12)
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
[2023-06-30] MEDS: ceFAZolin 2,000 MG in sodium chloride 0.9% (plus) 50 ML 100 MG IV (12:41)
--- NOTE | 2023-06-30 13:54 | PM.OP ---
Operative Report Date of procedure: June 30, 2023 Pre-op diagnosis: Cervical spondylosis with radiculopathy Post-op diagnosis: same Procedure done: 1. Anterior diskectomy C5/6 2. Insertion of cage C5/6 3. Instrumentation with anterior plate from C5-C6 4. Use of allograft Surgeon: Farhan Abdalla DO Public Works Technician: Ld Humphreys Public Works Technician: The surgical garment fitter, Ld Humphreys, [place] was needed for his expertise under the microscope. He was important and necessary throughout the procedure to complete in a safe and timely manner. He assisted with patient positioning prepping and draping tissue retraction suctioning of the operative field protection of the dural sac and tissue closure Estimated blood loss (mL): 10 Procedure: 1. Anterior diskectomy C5/6 2. Insertion of cage C5/6 3. Instrumentation with anterior plate from C5-C6 4. Use of allograft The patient was taken to the operating room, where he underwent general endotracheal anesthesia without complications. He was then positioned supine on the operating table, and all areas of impingement were well padded. The arms were carefully padded and tucked at his sides. A roll was placed between the shoulder blades.. An x-ray was done to determine the appropriate level for the skin incision. The entire neck was then sterilely prepped and draped in the usual fashion. Neuromonitoring was attached prior to prepping. A transverse skin incision was made and carried down to the platysma muscle. This was then split in line with its fibers. Blunt dissection was carried down medial to the carotid sheath and lateral to the trachea and esophagus until the anterior cervical spine was visualized. A needle was placed into a disc and an x-ray was done to determine its location. The longus colli muscles were then elevated bilaterally with the electrocautery unit. Self-retaining retractors were placed deep to the longus colli muscle. Attention was brought to the C5/6 level that was confirmed on x-ray. A caspar pin was placed into the C5 vertebrae and the C6 vertebrae. The disk space was then distracted. The microscope was then brought in. A radical anterior discectomies were performed at C5/6. This included complete removal of the anterior annulus, nucleus, and posterior annulus. The posterior longitudinal ligament was removed as were the posterior osteophytes. Foraminotomies were then accomplished bilaterally. This was done using a high speed maliha, daniele rongeurs and curretes Once all of this was accomplished, the curved currette was used to check for any residual compression. The central canal was wide open as were the foramen. A high-speed bur was used to remove the cartilaginous endplates above and below the interspace. Bleeding cancellous bone was exposed. The disc space were measured and appropriate size cage were placed sterilely onto the field. Allograft graft was packed into the cages. The cage was then placed and there was good juxtaposition against the bleeding decorticated surfaces and good distraction of each interspace. The [place] pins were removed. Bone wax was used to prevent any bleeding from occurring at the pin sites. . Two screws were then placed into each of the vertebral bodies one screw was placed through the cage into the C5 vertebrae and 1 screw was placed down through the cage into the C6 vertebrae. There was excellent purchase. A final x-ray was done confirming good position of the hardware and Cages. Following a final copious irrigation, there was good hemostasis and no dural leaks. The carotid pulse was strong. The wounds were then closed in layers using 2-0 Vicryl suture for the platysma muscle, 2-0 Vicryl suture for the subcutaneous tissue, and 4-0 monocryl suture in a subcuticular skin closure. Glue was placed followed by application of a sterile dressing. The drain was hooked to bulb suction. A soft collar was applied. The patient was then carefully returned to the supine position on his hospital bed where he was reversed and extubated and taken to the recovery room having tolerated the procedure well.
[2023-06-30] MEDS: fentaNYL 50 mcg/mL INJ 2mL IVP (14:12)
[2023-06-30] MEDS: HYDROmorphone 1 mg/mL INJ 1 mL 0.5 MG IVP (14:24)
[2023-06-30] MEDS: acetaminophen 500 mg Tablet 1000 MG PO (15:12)
--- NOTE | 2023-06-30 17:03 | ANE.PACU2 ---
Inpatient post-anesthesia follow up: Airway intact: Yes Vital signs: Temperature 97.7 F Pulse Rate 69 Respiratory Rate 16 Blood Pressure 172/96 Pulse Oximetry 96 Oxygen Delivery Me thod Room Air Oxygen Flow Rate 6 Fraction of Inspir ed Oxygen Hydration adequate: Yes Nausea and vomiting: No Pain level: 3 Mental status: Baseline
== END 2023-06-30 15:32 | disposition home or self-care (01) ==
PROVIDERS: PCP Family Medicine; Visit Provider Orthopaedic Surgery
PROC: 0RB30ZZ Excision of Cervical Vertebral Disc, Open Approach (ICD-10-PCS; CPT 22551; principal; 2023-06-30 12:20)
DX: M47.812 Spondylosis without myelopathy or radiculopathy, cervical region (principal); I10 Essential (primary) hypertension; F41.9 Anxiety disorder, unspecified; I48.91 Unspecified atrial fibrillation; N40.0 Benign prostatic hyperplasia without lower urinary tract symptoms; Z87.891 Personal history of nicotine dependence
CPT/HCPCS: 20930; 22551; 22845; 72040; 76000; C1713; C9359; J0131; J0330; J0690; J1100; J1170; J2371; J2405; J2704; J2710; J3010; J3490; J7030; L0172; P9045

== ENCOUNTER → 2023-07-15 09:33 | Outpatient (BNVA) | payer MEDICARE, SELFPAY | PROVIDERS: PCP Family Medicine; Visit Provider Physician Assistant | DX: Z98.1 Arthrodesis status; Z47.89 Encounter for other orthopedic aftercare | CPT/HCPCS: 99024 ==

== ENCOUNTER → 2023-07-15 09:33 | Outpatient (BNVA) | payer MEDICARE, OTHER, SELFPAY | PROVIDERS: PCP Family Medicine; Visit Provider Physician Assistant | DX: Z98.1 Arthrodesis status; Z47.89 Encounter for other orthopedic aftercare | CPT/HCPCS: 72040 ==

== ENCOUNTER 2023-07-23 11:03 | Oncology outpatient (recurring) (ONCR) | payer MEDICARE, OTHER, SELFPAY ==
[2023-07-23 11:08] VITALS: BP 137/76; PULSE 76; RESP 16; TEMP 37.2; O2SAT 99
[2023-07-23 11:24] LABS: Basophils % 0.6 %; Eosinophils # 0.1 10^3/uL (0.0-0.8); Eosinophils % 1.3 %; Hematocrit 41.4 % (37-53); Lymphocytes # 2.1 10^3/uL (0.8-4.8); Lymphocytes % 38.1 %; Mean Corpuscular HGB Conc 34.1 g/dL (30-55); Mean Corpuscular Hemoglobin 31.2 pg (27-33); Mean Corpuscular Volume 91.6 fl (82-101); Mean Platelet Volume 10.1 fL (7.4-10.4); Monocytes # 0.8 10^3/uL (0.2-0.9); Monocytes % 13.9 %; Neutrophils # 2.47 10^3/uL (1.8-7.7); Neutrophils % 45.9 %; Nucleated Red Blood Cells % 0 %; Platelet Count 240 10^3/cmm (157-399); Red Blood Count 4.52 10^6/uL (3.85-5.65); Red Cell Distribution Width 12.2 % (12.1-15.1); White Blood Count 5.38 10^3/uL (3.29-11.43)
[2023-07-23 11:40] LABS: Alanine Aminotransferase 13 U/L (0-41); Albumin Level 4.1 g/dL (3.5-5.2); Alkaline Phosphatase 93 U/L (40-130); Aspartate Amino Transferase 17 U/L (0-40); Blood Urea Nitrogen 11 mg/dL (8-23); Calcium 8.8 mg/dL (8.5-10.5); Carbon Dioxide 30 mmol/L (22-29); Chloride 102 mmol/L (98-107); Globulin 3.2 g/dL (1.3-4.6); Glucose 98 mg/dL (65-115); Lactate Dehydrogenase 128 U/L (135-225); Osmolality Calculated 287 mOsm/kg (285-295); Sodium 139 mmol/L (136-145); Total Bilirubin 0.4 mg/dL (0.15-1.2); Total Protein 7.3 g/dL (6.6-8.7)
[2023-07-23 12:21] LABS: Slide Review Slide Review Perform
== END 2023-08-19 23:59 | disposition home or self-care (01) ==
PROVIDERS: Nurse Practitioner Family; PCP Family Medicine; Visit Provider Internal Medicine Medical Oncology
DX: R06.02 Shortness of breath (principal); C85.10 Unspecified B-cell lymphoma, unspecified site; Z79.899 Other long term (current) drug therapy
CPT/HCPCS: 36591; 72040; 80053; 83615; 85025; 99214; J1642

== ENCOUNTER 2023-07-31 10:42 | Outpatient (CLI) | payer MEDICARE, OTHER, SELFPAY ==
--- NOTE | 2023-07-31 11:00 | USCV_ITS ---
Rehan Lambert Age: 73 Gender: M : 1950 Exam Date: 07/31/2023 10:53 Ordering Phys: Valeria Bustos APRN Technologist: Yuko Bales Exam Location: [facility] [place] Indication: [facility] HISTORY OF CHEMO AND HEART ABLATION BP: / HR: 78 Rhythm: Sinus Technical Quality: Adequate MEASUREMENTS (Male / Female) Normal Values 2D ECHO LV Diastolic Diameter PLAX 3.9 cm 4.2 - 5.9 / 3.9 - 5.3 cm LV Systolic Diameter PLAX 3.0 cm LV Chamber Size 2.7 cm IVS Diastolic Thickness 1.0 cm 0.6 - 1.0 / 0.6 - 0.9 cm IVS Systolic Thickness 0.8 cm LVPW Diastolic Thickness 1.4 cm 0.6 - 1.0 / 0.6 - 0.9 cm LVPW Systolic Thickness 1.7 cm RV Chamber Size 3.0 cm LVOT Diameter 2.0 cm LV Ejection Fraction 2D Teich 44.4 % LV Ejection Fraction MOD 2C 63.5 % LV Ejection Fraction 2C AL 62.9 % LA Diameter 3.0 cm LA Width 3.5 cm LA Height 2.9 cm RA Width 3.7 cm RA Height 4.5 cm Aorta at Sinotubular Diameter 3.4 cm IVC Diameter 1.4 cm M-MODE Aortic Annulus Diameter 3.8 cm LA Ao Ratio MM 1.1 MV E Point Septal Separation 0.4 cm DOPPLER AV Peak Velocity 363.0 cm/s LVOT Peak Velocity 100.0 cm/s AV Area Cont Eq vti 0.9 cm squared AV Area Cont Eq pk 0.9 cm squared MV Area PHT 4.3 cm squared Mitral E to A Ratio 0.8 MV E' Velocity 38.0 cm/s Mitral E to MV E' Ratio 10.0 Mitral E to LV E' Lateral Ratio 10.4 Mitral E to LV E' Septal Ratio 9.7 TR Peak Velocity 185.0 cm/s TR Peak Gradient 13.7 mmHg TR Mean Velocity 126.4 cm/s TR Mean Gradient 7.3 mmHg TR Velocity Time Integral 40.1 cm TV Peak E Velocity 58.0 cm/s Right Atrial Pressure 3.0 mmHg Pulmonary Artery Systolic Pressu 16.7 mmHg RV Acceleration Time 0.3 s RV Ejection Time 0.1 s RV AcT/ET 2.8 FINDINGS Left Ventricle Normal left ventricular size, systolic function and increased wall thickness, with no regional wall motion abnormalities. Left ventricular ejection fraction is estimated at 60 %. Normal diastolic function. Right Ventricle Normal right ventricular size and systolic function. Right ventricular systolic pressure 22 mmHg. Right Atrium Normal right atrial size. Aneurysmal interatrial septum. Left Atrium Mildly increased left atrial size. Mitral Valve Moderate mitral annular calcification. Moderately thickened elongated mitral valve. Systolic anterior motion of anterior mitral leaflet. No mitral valve stenosis. Trace mitral valve regurgitation. Aortic Valve Markedly thickened and calcified aortic valve. Severe aortic valve stenosis, peak velocity 4 m/s, peak gradient 65 mm Hg, mean gradient 31mmHg, KORI 0.92 cm squared. No aortic valve regurgitation. Tricuspid Valve Structurally normal tricuspid valve. No tricuspid valve stenosis. Pulmonic Valve Pulmonic valve not well visualized. Pericardium No pericardial effusion. Aorta Normal size aortic root and proximal ascending aorta. IVC Normal IVC dimension with >50% respiratory change of the inferior vena cava. CONCLUSIONS 1. Normal left ventricular size, systolic function and increased wall thickness, with no regional wall motion abnormalities. Left ventricular ejection fraction is estimated at 60 %. Normal diastolic function. 2. Markedly thickened and calcified aortic valve. Severe aortic valve stenosis, peak velocity 4 m/s, peak gradient 65 mm Hg, mean gradient 31mmHg, KORI 0.92 cm squared. 3. Moderately thickened elongated mitral valve. Systolic anterior motion of anterior mitral leaflet. 4. When compared to study dated 02/28/2021, aortic stenosis seems to have worsened. Alejandra Velásquez MD (Electronically Signed) Final Date: 01 August 2023 00:04 S
== END 2023-07-31 10:43 | disposition home or self-care (01) ==
PROVIDERS: PCP Family Medicine; Visit Provider Nurse Practitioner Family
DX: R06.02 Shortness of breath (principal); I08.0 Rheumatic disorders of both mitral and aortic valves; Z92.21 Personal history of antineoplastic chemotherapy; Z98.890 Other specified postprocedural states
CPT/HCPCS: 93306

== ENCOUNTER → 2023-08-12 09:53 | Outpatient (BNVA) | payer MEDICARE, OTHER, SELFPAY | PROVIDERS: PCP Family Medicine; Visit Provider Physician Assistant | DX: Z98.1 Arthrodesis status; Z47.89 Encounter for other orthopedic aftercare | CPT/HCPCS: 72040; 99024 ==

== ENCOUNTER 2023-08-20 09:22 | Oncology outpatient (recurring) (ONCR) | payer MEDICARE, OTHER, SELFPAY ==
[2023-08-20 09:42] VITALS: BP 155/75; PULSE 75; RESP 16; TEMP 37.2; O2SAT 98
== END 2023-09-18 23:59 | disposition home or self-care (01) ==
PROVIDERS: PCP Family Medicine; Visit Provider Internal Medicine Medical Oncology
DX: R06.02 Shortness of breath (principal); C85.10 Unspecified B-cell lymphoma, unspecified site; Z79.899 Other long term (current) drug therapy; Z45.2 Encounter for adjustment and management of vascular access device; Z51.11 Encounter for antineoplastic chemotherapy
CPT/HCPCS: 96523; J1642

== ENCOUNTER 2023-09-23 09:50 | Oncology outpatient (recurring) (ONCR) | payer MEDICARE, OTHER, SELFPAY ==
[2023-09-23 09:55] VITALS: BP 127/72; PULSE 73; RESP 16; TEMP 37.1; O2SAT 99
== END 2023-10-19 23:59 | disposition home or self-care (01) ==
PROVIDERS: PCP Family Medicine; Visit Provider Internal Medicine Medical Oncology
DX: Z51.11 Encounter for antineoplastic chemotherapy (principal); R06.02 Shortness of breath; C85.10 Unspecified B-cell lymphoma, unspecified site; Z79.899 Other long term (current) drug therapy; Z45.2 Encounter for adjustment and management of vascular access device
CPT/HCPCS: 72040; 99024; J1642

== ENCOUNTER 2023-10-23 09:20 | Oncology outpatient (recurring) (ONCR) | payer MEDICARE, SELFPAY ==
[2023-10-23 09:55] VITALS: BP 117/73; PULSE 63; RESP 16; TEMP 36.7; O2SAT 97
== END 2023-11-19 23:59 | disposition home or self-care (01) ==
LOC: ONCMED 09:21
PROVIDERS: PCP Family Medicine; Visit Provider Internal Medicine Medical Oncology
DX: Z51.11 Encounter for antineoplastic chemotherapy (principal); R06.02 Shortness of breath; C85.10 Unspecified B-cell lymphoma, unspecified site; Z79.899 Other long term (current) drug therapy; Z45.2 Encounter for adjustment and management of vascular access device; Z47.89 Encounter for other orthopedic aftercare; Z98.1 Arthrodesis status; Z95.828 Presence of other vascular implants and grafts
CPT/HCPCS: 17000; 99213; J1642

== ENCOUNTER → 2023-11-24 16:35 | Outpatient (BNVA) | payer MEDICARE, SELFPAY | PROVIDERS: PCP Family Medicine; Visit Provider Nurse Practitioner Family | DX: S96.919A Strain of unspecified muscle and tendon at ankle and foot level, unspecified foot, initial encounter (principal); W19.XXXA Unspecified fall, initial encounter; Y93.89 Activity, other specified | CPT/HCPCS: 73630 ==

== ENCOUNTER 2023-11-27 09:18 | Oncology outpatient (recurring) (ONCR) | payer MEDICARE, SELFPAY | END 2023-12-18 23:59 | disposition home or self-care (01) | PROVIDERS: PCP Family Medicine; Visit Provider Internal Medicine Medical Oncology | DX: Z45.2 Encounter for adjustment and management of vascular access device | CPT/HCPCS: 96523; J1642 ==

== ENCOUNTER 2023-12-23 09:15 | Oncology outpatient (recurring) (ONCR) | payer MEDICARE, SELFPAY | END 2024-01-18 23:59 | disposition home or self-care (01) | LOC: ONCMED 09:16 | PROVIDERS: PCP Family Medicine; Visit Provider Internal Medicine Medical Oncology | DX: Z45.2 Encounter for adjustment and management of vascular access device (principal); M47.22 Other spondylosis with radiculopathy, cervical region; Z98.1 Arthrodesis status | CPT/HCPCS: 72040; 96523; 99214; J1642 ==

== ENCOUNTER 2024-01-28 11:57 | Oncology outpatient (recurring) (ONCR) | payer MEDICARE, SELFPAY ==
[2024-01-28 12:34] LABS: Basophils % 0.7 %; Eosinophils # 0.1 10^3/uL (0.0-0.8); Eosinophils % 1.1 %; Hematocrit 33.2 % (37-53); Lymphocytes # 2.4 10^3/uL (0.8-4.8); Lymphocytes % 43.1 %; Mean Corpuscular HGB Conc 30.4 g/dL (30-55); Mean Corpuscular Hemoglobin 23.1 pg (27-33); Mean Platelet Volume 9.7 fL (7.4-10.4); Monocytes # 0.8 10^3/uL (0.2-0.9); Monocytes % 14.5 %; Neutrophils # 2.23 10^3/uL (1.8-7.7); Neutrophils % 40.4 %; Nucleated Red Blood Cells % 0.4 %; Platelet Count 349 10^3/cmm (157-399); Red Blood Count 4.37 10^6/uL (3.85-5.65); Red Cell Distribution Width 19.8 % (12.1-15.1); White Blood Count 5.52 10^3/uL (3.29-11.43)
[2024-01-28 12:50] LABS: Alanine Aminotransferase 12 U/L (0-41); Albumin Level 3.9 g/dL (3.5-5.2); Alkaline Phosphatase 102 U/L (40-130); Anion Gap 11.8 (5-19); Aspartate Amino Transferase 22 U/L (0-40); Blood Urea Nitrogen 11 mg/dL (8-23); Calcium 8.5 mg/dL (8.5-10.5); Carbon Dioxide 28 mmol/L (22-29); Chloride 103 mmol/L (98-107); Globulin 3.2 g/dL (1.3-4.6); Glucose 91 mg/dL (65-115); Lactate Dehydrogenase 193 U/L (135-225); Osmolality Calculated 287 mOsm/kg (285-295); Potassium 3.8 mmol/L (3.5-5.1); Sodium 139 mmol/L (136-145); Total Bilirubin 0.4 mg/dL (0.15-1.2); Total Protein 7.1 g/dL (6.6-8.7)
[2024-01-28 15:13] LABS: Ferritin 24 ng/mL (30-400); Iron 21 ug/dL (59-158); Percent Saturation 5.5 % (20-50); Total Iron Binding Capacity 380 mcg/dl; Unsaturated Iron Binding 359 ug/dL (112-347)
== END 2024-02-17 23:59 | disposition home or self-care (01) ==
PROVIDERS: Nurse Practitioner Family; PCP Family Medicine; Visit Provider Internal Medicine Medical Oncology
DX: Z45.2 Encounter for adjustment and management of vascular access device (principal); M47.22 Other spondylosis with radiculopathy, cervical region; Z98.1 Arthrodesis status; Z79.899 Other long term (current) drug therapy; C85.10 Unspecified B-cell lymphoma, unspecified site
CPT/HCPCS: 36591; 80053; 82728; 83540; 83550; 83615; 85025; 99214; J1642

== ENCOUNTER 2024-02-03 11:54 | Outpatient (CLI) | payer MEDICARE, SELFPAY ==
--- NOTE | 2024-02-03 12:15 | MR_ITS ---
WS: [id number] MRI CERVICAL SPINE NONCONTRAST HISTORY: Z98.1 - Arthrodesis status COMPARISON: 02/13/2023 Technique: Multiplanar, multisequence noncontrast imaging of the cervical spine. Mild increase in the cervical lordosis. Prior cervical fusion at C5-6 and C6-7. Alignment at the fusi on site appears normal. No marrow edema. No fractures. No inferior displacement of the cerebellar ton sils. Signal within the cervical cord is normal. Visualized posterior fossa is unremarkable. Craniocervical junction, C1 and C2 relationship, odontoid process and soft tissues are normal. C2-C3: Mild disc bulging. No stenosis. C3-C4: Mild osteophytic ridging. No stenosis. C4-C5: Mild osteophytic ridging and facet arthritis. Mild bilateral foraminal narrowing, LEFT greater than RIGHT. C5-C6: Osteophytic ridging and disc bulging and facet arthritis. Mild central and foraminal stenosis. C6-C7: Mild osteophytic ridging and disc bulging. There may be very tiny central disc protrusion or o steophyte contacting the ventral thecal sac. Mild central and foraminal stenosis. C7-T1: Mild osteophytic ridging. Shallow central to LEFT paracentral disc protrusion. No stenosis. Paraspinal soft tissue are normal. IMPRESSION: 1. Prior anterior cervical fusion at C5-6 and C6-7. Fusion appears intact with no complications appa rent. 2. Mild increase in the cervical lordosis. 3. C5-6 and C6-7: Mild central and bilateral foraminal stenosis Walker due to osteophytes. There is an additional very small central disc protrusion or osteophyte at C6-7. 4. C4-5: Mild foraminal narrowing, LEFT greater than RIGHT. 5. C7-T1 shallow central to LEFT paracentral disc protrusion.
--- NOTE | 2024-02-03 13:00 | MR_ITS ---
WS: [id number] MRI THORACIC SPINE noncontrast HISTORY: back pain COMPARISON: None available. TECHNIQUE: Multiplanar sequences are performed in sagittal and axial planes. Slight increase in the cervical kyphosis. Long curvature, dextroscoliosis of the thoracic spine. No f ractures. Disc spaces are mildly narrowed and desiccated. There is no marrow edema. No cord compressi on. No cord atrophy or enlargement. Bilateral mild facet joint arthritis throughout the thoracic spine. Increasing facet joint arthritis, LEFT greater than RIGHT at T11-12. There is no focal disc protrusions or stenosis. Foramina are peralta nt. Ectasia thoracic aorta. IMPRESSION: 1. Long curvature dextroscoliosis thoracic spine with mild disc space narrowing. 2. No fractures or marrow edema. 3. No high-grade stenosis.
== END 2024-02-03 11:55 | disposition home or self-care (01) ==
LOC: RAD 11:54
PROVIDERS: PCP Family Medicine; Visit Provider Orthopaedic Surgery
DX: M54.9 Dorsalgia, unspecified (principal); M48.02 Spinal stenosis, cervical region; M50.23 Other cervical disc displacement, cervicothoracic region; M41.9 Scoliosis, unspecified; Z98.1 Arthrodesis status
CPT/HCPCS: 72141; 72146

== ENCOUNTER → 2024-02-24 08:32 | Outpatient (BNVA) | payer MEDICARE, SELFPAY | PROVIDERS: PCP Family Medicine; Visit Provider Orthopaedic Surgery | DX: Z98.1 Arthrodesis status (principal) | CPT/HCPCS: 99214 ==

== ENCOUNTER 2024-03-02 10:59 | Oncology outpatient (recurring) (ONCR) | payer MEDICARE, SELFPAY | END 2024-03-19 23:59 | disposition home or self-care (01) | PROVIDERS: Visit Provider Internal Medicine Medical Oncology | DX: Z45.2 Encounter for adjustment and management of vascular access device | CPT/HCPCS: 96523 ==

== ENCOUNTER 2024-03-02 11:29 | Outpatient (CLI) | payer MEDICARE, SELFPAY ==
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
== END 2024-03-02 11:30 | disposition home or self-care (01) ==
PROVIDERS: Visit Provider Nurse Practitioner Family
DX: C85.10 Unspecified B-cell lymphoma, unspecified site (principal); Z95.9 Presence of cardiac and vascular implant and graft, unspecified; Z95.2 Presence of prosthetic heart valve; Z90.81 Acquired absence of spleen; Z96.641 Presence of right artificial hip joint
CPT/HCPCS: 78815; A9552

== ENCOUNTER 2024-04-02 09:47 | Oncology outpatient (recurring) (ONCR) | payer MEDICARE, SELFPAY | END 2024-04-18 23:59 | disposition home or self-care (01) | PROVIDERS: Visit Provider Internal Medicine Medical Oncology | DX: Z45.2 Encounter for adjustment and management of vascular access device (principal) | CPT/HCPCS: 96523 ==

== ENCOUNTER 2024-05-18 08:38 | Oncology outpatient (recurring) (ONCR) | payer MEDICARE, SELFPAY | END 2024-05-19 23:59 | disposition home or self-care (01) | PROVIDERS: Visit Provider Internal Medicine Medical Oncology | DX: Z98.1 Arthrodesis status (principal); Z45.2 Encounter for adjustment and management of vascular access device | CPT/HCPCS: 72040; 72072; 96523; 99213 ==

== ENCOUNTER 2024-06-07 06:00 | Outpatient (RCR) | payer MEDICARE, SELFPAY | END 2024-06-19 23:59 | disposition home or self-care (01) | LOC: MPT 06:00 | PROVIDERS: Visit Provider Orthopaedic Surgery | DX: M54.2 Cervicalgia (principal); G89.29 Other chronic pain | CPT/HCPCS: 97110; 97140; 97162 ==

== ENCOUNTER 2024-06-11 09:58 | Oncology outpatient (recurring) (ONCR) | payer MEDICARE, SELFPAY | END 2024-06-19 23:55 | disposition home or self-care (01) | PROVIDERS: Visit Provider Internal Medicine Medical Oncology | DX: Z45.2 Encounter for adjustment and management of vascular access device (principal) | CPT/HCPCS: 96523 ==

== ENCOUNTER 2024-06-20 06:00 | Outpatient (RCR) | payer MEDICARE, SELFPAY | END 2024-07-07 23:59 | disposition home or self-care (01) | LOC: MPT 06:00 | PROVIDERS: Visit Provider Orthopaedic Surgery | DX: M54.2 Cervicalgia (principal); G89.29 Other chronic pain | CPT/HCPCS: 97110; 97140 ==

== ENCOUNTER 2024-07-09 10:19 | Oncology outpatient (recurring) (ONCR) | payer MEDICARE, SELFPAY | END 2024-07-19 23:59 | disposition home or self-care (01) | PROVIDERS: Visit Provider Internal Medicine Medical Oncology | DX: Z45.2 Encounter for adjustment and management of vascular access device (principal) | CPT/HCPCS: 96523 ==

== ENCOUNTER 2024-07-09 12:47 | Emergency (ER) | payer MEDICARE, SELFPAY ==
[2024-07-09 12:58] VITALS: BP 141/75; PULSE 72; RESP 18; TEMP 36.6; O2SAT 96; BMI 21.6
--- NOTE | 2024-07-09 13:32 | PC.NURSE ---
applied a pressure dressing at 1247 during triage. pt back to the desk at 0130 reporting that the bandage had been soaked. New gauze and pressure bandage applied at that time. pt back to the waiting room until a room is available
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
[2024-07-09 16:39] VITALS: BP 155/79; PULSE 70; O2SAT 95
== END 2024-07-09 16:41 | disposition home or self-care (01) ==
PROVIDERS: Emergency Provider Physician Assistant
DX: T82.838A Hemorrhage due to vascular prosthetic devices, implants and grafts, initial encounter (principal); Z87.891 Personal history of nicotine dependence; Z85.72 Personal history of non-Hodgkin lymphomas
CPT/HCPCS: 99282

== ENCOUNTER → 2024-07-29 09:33 | Outpatient (BNVA) | payer MEDICARE, SELFPAY | PROVIDERS: Visit Provider Nurse Practitioner Family | DX: D48.5 Neoplasm of uncertain behavior of skin (principal); L57.0 Actinic keratosis; L82.1 Other seborrheic keratosis; D22.5 Melanocytic nevi of trunk; L57.8 Other skin changes due to chronic exposure to nonionizing radiation; L81.4 Other melanin hyperpigmentation; Z85.820 Personal history of malignant melanoma of skin; Z85.828 Personal history of other malignant neoplasm of skin | CPT/HCPCS: 11102; 17000; 99213 ==

== ENCOUNTER 2024-08-06 09:50 | Oncology outpatient (recurring) (ONCR) | payer MEDICARE, SELFPAY | END 2024-08-19 23:59 | disposition home or self-care (01) | LOC: ONCMED 09:52 | PROVIDERS: Visit Provider Internal Medicine Medical Oncology | DX: Z45.2 Encounter for adjustment and management of vascular access device (principal) | CPT/HCPCS: 96523 ==

== ENCOUNTER → 2024-09-07 08:02 | Outpatient (BNVA) | payer MEDICARE, SELFPAY | PROVIDERS: Visit Provider Orthopaedic Surgery | DX: M54.9 Dorsalgia, unspecified (principal) | CPT/HCPCS: 72072; 72110; 99213 ==

== ENCOUNTER → 2024-09-14 08:55 | Outpatient (BNVA) | payer MEDICARE, SELFPAY | PROVIDERS: Referring Provider Internal Medicine Medical Oncology; Visit Provider Student in an Organized Health Care Education/Training Program | DX: Z95.828 Presence of other vascular implants and grafts (principal) | CPT/HCPCS: 99204 ==

== ENCOUNTER 2024-09-15 07:45 | Oncology outpatient (recurring) (ONCR) | payer MEDICARE, SELFPAY ==
--- NOTE | 2024-08-23 12:45 | CT_ITS ---
WS: [id number] CT CHEST, ABDOMEN AND PELVIS WITH CONTRAST HISTORY: lymphoma TECHNIQUE: Contiguous 5 mm axial imaging performed through the chest, abdomen and pelvis with IV cont rast, oral contrast has been provided. Coronal and sagittal reformats chest. Coronal and sagittal ref ormats through the abdomen and pelvis. All CT scans at [facility] use at least one of these d ose optimization techniques: automated exposure control; mA and/or kV adjustment per patient size (in cludes targeted exams where dose is matched to clinical indication); or iterative reconstruction. CONTRAST: Omnipaque 350; 100 mL IV. DLP: 613.37 mGy.cm COMPARISON: 01/13/2023, PET/CT 03/02/[address]: There are a few tiny scattered micronodules. No mass or enlarging nodule. Linear platelike areas of atelectasis at the lung bases. Heart is normal size. Aortic valve replacement. Small mediast inal and hilar lymph nodes are identified. The largest lymph node is 10 mm in the RIGHT hilum. This i s similar to the prior study. No new or enlarging lymph nodes. No axillary adenopathy. RIGHT Port-A-C ath. Mild atherosclerosis aorta. Normal size pulmonary artery. Mixed sclerotic soft tissue lesion int ercostal mid RIGHT thorax has been present on multiple prior examinations. Also noted on prior PET/CT exams and negative. Abdomen CT: Normal size liver. Coarse calcification in the RIGHT lobe of the liver. Prior cholecystec david. Normal portal vein. Prior splenectomy. Residual splenule in the splenic bed. Normal and unchang ed appearance of the pancreas. No adrenal mass. Mild atherosclerosis aorta. Normally distended stomach. No small bowel obstruction. Marked constipation and tortuous overlapping loops of colon. No obstruction. Moderate diverticular disease in the sigmoid. No acute diverticulitis . No ascites. No pathologically enlarged lymph nodes. Pelvic CT: No free fluid. No adenopathy. Posterior lumbar fusion at L3-4. Prior RIGHT hip arthroplasty. CT/CT chest abdpel w/*[id number] IMPRESSION: 1. No recurrent lymphadenopathy within the chest, abdomen or pelvis. Lymph nod e size and distribution is similar to 01/13/2023. 2. Prior splenectomy. 3. No ascites. 4. Diffuse constipation with sigmoid diverticulosis. 5. Prior cholecystectomy.
[2024-08-23] MEDS: iohexol 350 mg/mL 500 mL Btl (per mL) PO (13:11)
[2024-08-23 13:30] LABS: Blood Urea Nitrogen 12 mg/dL (8-23)
[2024-08-23] MEDS: iohexol 350 mg/mL 500 mL Btl (per mL) IV (13:56)
[2024-09-07 10:19] LABS: Basophils % 0.6 %; Eosinophils % 0.8 %; Hematocrit 41.3 % (37-53); Lymphocytes # 1.7 10^3/uL (0.8-4.8); Lymphocytes % 35.6 %; Mean Corpuscular HGB Conc 33.2 g/dL (30-55); Mean Corpuscular Hemoglobin 31.3 pg (27-33); Mean Corpuscular Volume 94.3 fl (82-101); Mean Platelet Volume 10.2 fL (7.4-10.4); Monocytes # 0.6 10^3/uL (0.2-0.9); Monocytes % 11.6 %; Neutrophils # 2.43 10^3/uL (1.8-7.7); Neutrophils % 51.2 %; Nucleated Red Blood Cells % 0 %; Platelet Count 217 10^3/cmm (157-399); Red Blood Count 4.38 10^6/uL (3.85-5.65); White Blood Count 4.75 10^3/uL (3.29-11.43)
[2024-09-07 10:43] LABS: Alanine Aminotransferase 26 U/L (0-41); Albumin Level 3.9 g/dL (3.5-5.2); Alkaline Phosphatase 94 U/L (40-130); Anion Gap 11.6 (5-19); Aspartate Amino Transferase 26 U/L (0-40); Blood Urea Nitrogen 8 mg/dL (8-23); Calcium 8.7 mg/dL (8.5-10.5); Carbon Dioxide 29 mmol/L (22-29); Chloride 105 mmol/L (98-107); Ferritin 110 ng/mL (30-400); Globulin 2.9 g/dL (1.3-4.6); Glucose 115 mg/dL (65-115); Iron 56 ug/dL (59-158); Lactate Dehydrogenase 166 U/L (135-225); Osmolality Calculated 293 mOsm/kg (285-295); Percent Saturation 18.7 % (20-50); Potassium 3.6 mmol/L (3.5-5.1); Sodium 142 mmol/L (136-145); Total Bilirubin 0.4 mg/dL (0.15-1.2); Total Iron Binding Capacity 298 mcg/dl; Total Protein 6.8 g/dL (6.6-8.7); Unsaturated Iron Binding 242 ug/dL (112-347)
--- NOTE | 2024-09-15 07:45 | USR_ITS ---
PROCEDURE INFORMATION: Exam: US Scrotum Exam date and time: 09/15/2024 7:41 AM Age: 74 years old Clinical indication: Swelling, testicles or scrotum; Additional info: Testicular asymmetry TECHNIQUE: Imaging protocol: Real-time ultrasound of the scrotum and contents with color Doppler and image documentation. COMPARISON: PT PET skull to thigh SUBS [id number] 03/02/2024 1:18 PM FINDINGS: Right testicle: Normal. No mass. Normal color Doppler and arterial waveforms. No torsion. Left testicle: Normal. No mass. Normal color Doppler and arterial waveforms. No torsion. Epididymides: Perhaps mild inflammatory change of the right epididymis. Left spermatocele is seen. Scrotum/soft tissues: Dilated pampiniform plexuses, reaching upper limits of normal for size. US/US scrotum [id number] IMPRESSION: Perhaps mild right epididymitis. Otherwise, no acute findings.
== END 2024-09-18 23:59 | disposition home or self-care (01) ==
LOC: RAD 09-16 → ONCMED 09-20 09:20
PROVIDERS: Nurse Practitioner Family; Visit Provider Internal Medicine Medical Oncology
DX: Q55.9 Congenital malformation of male genital organ, unspecified (principal); N45.1 Epididymitis
CPT/HCPCS: 36591; 71260; 74177; 76870; 80053; 82565; 82728; 83540; 83550; 83615; 84520; 85025; 99214

== ENCOUNTER 2024-10-01 09:51 | Oncology outpatient (recurring) (ONCR) | payer MEDICARE, SELFPAY | END 2024-10-19 23:59 | disposition home or self-care (01) | LOC: ONCMED 09:51 | PROVIDERS: Visit Provider Internal Medicine Medical Oncology | DX: Z45.2 Encounter for adjustment and management of vascular access device | CPT/HCPCS: 96523 ==

== ENCOUNTER 2024-10-27 06:11 | Day surgery (SDC) | payer MEDICARE, SELFPAY ==
[2024-10-27] VITALS (7 sets, daily range): BP systolic 114–146; BP diastolic 65–90; PULSE 62–71; RESP 16–18; TEMP 36.2–36.4; O2SAT 97–100; BMI 21.6
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
[2024-10-27] MEDS: sodium chloride 0.9% 1,000 ML 30 ML IV (07:26)
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
[2024-10-27] MEDS: lidocaine-epi 1% PF 1:200,000 30 mL SDV INJECTION (08:26)
[2024-10-27] MEDS: ceFAZolin 2,000 mg SDV 2000 MG IVP (08:26)
--- NOTE | 2024-10-27 08:49 | PM.OP ---
Operative Report Date of procedure: October 27, 2024 Pre-op diagnosis: Lymphoma Post-op diagnosis: same Post-op findings: Port-A-Cath removed in its entirety Procedure done: Port-A-Cath removal Implants: N/A Specimens removed/disposition: Port-A-Cath removed and sent to micro for culture Pathology: none sent Pathology: N/A Surgeon: Luis Acevedo MD Field Service Rep: N/A Anesthesia: MAC Estimated blood loss (mL): 5 Complications: N/A Findings: Port removed in its entirety. Condition: stable Disposition: same day Brief History: 74-year-old male who had a port for chemotherapy administration. Lymphoma in remission. Discussed risk and benefits of right chest port removal and patient agreed to proceed. Procedure: Patient was brought into the operative room table. He was laid supine. 2 g of Ancef were administered. MAC was induced. The right chest was prepped and draped in the usual sterile fashion. 1% lidocaine with epinephrine was used for local infiltration. An incision right over the port was carried out. Electrocautery was used to dissect out the port. Port, cuff, and catheter were all pulled together. Pressure was held over the catheter tract. Hemostasis was achieved using electrocautery. Wound was closed using 3-0 Vicryl in an interrupted fashion as well as 4-0 Monocryl and surgical glue. Patient woke up from anesthesia without any complications.
--- NOTE | 2024-10-27 13:29 | ANE.PACU2 ---
Inpatient post-anesthesia follow up: Airway intact: Yes Vital signs: Temperature 97.2 F Pulse Rate 71 Respiratory Rate 18 Blood Pressure 142/78 Pulse Oximetry 97 Oxygen Delivery Me thod Room Air Oxygen Flow Rate Fraction of Inspir ed Oxygen Hydration adequate: Yes Nausea and vomiting: No Pain level: 1 Mental status: Baseline
== END 2024-10-27 09:50 | disposition home or self-care (01) ==
PROVIDERS: Visit Provider Student in an Organized Health Care Education/Training Program
PROC: (CPT 36589; principal; 2024-10-27 08:00)
DX: C85.90 Non-Hodgkin lymphoma, unspecified, unspecified site (principal); Z79.82 Long term (current) use of aspirin; N40.0 Benign prostatic hyperplasia without lower urinary tract symptoms; M19.90 Unspecified osteoarthritis, unspecified site; I48.91 Unspecified atrial fibrillation; I10 Essential (primary) hypertension; F41.9 Anxiety disorder, unspecified; Z87.891 Personal history of nicotine dependence
CPT/HCPCS: 36590; 87070; 87075; 87205; J0690; J2704; J3010; J7030

== ENCOUNTER → 2024-11-11 08:22 | Outpatient (BNVA) | payer MEDICARE, SELFPAY | PROVIDERS: Visit Provider Student in an Organized Health Care Education/Training Program | DX: Z98.890 Other specified postprocedural states (principal) | CPT/HCPCS: 99024 ==

== ENCOUNTER 2025-02-07 10:49 | Oncology outpatient (recurring) (ONCR) | payer MEDICARE, SELFPAY ==
--- NOTE | 2025-02-07 11:00 | CTR_ITS ---
PROCEDURE INFORMATION: Exam: CT Chest With Contrast; Diagnostic Exam date and time: 02/07/2025 12:30 PM Age: 74 years old Clinical indication: Condition or disease; Other: Large b cell lymphoma; Prior surgery; Surgery date: 6+ months; Surgery type: Back, RT hip, gb. Spleen, small intestines, cardiac valve TECHNIQUE: Imaging protocol: Diagnostic computed tomography of the chest with contrast. Radiation optimization: All CT scans at this facility use at least one of these dose optimization techniques: automated exposure control; mA and/or kV adjustment per patient size (includes targeted exams where dose is matched to clinical indication); or iterative reconstruction. Contrast material: OMNI 350; Contrast volume: 100 ml; Contrast route: INTRAVENOUS (IV); COMPARISON: CT chest abdpel w/*[id number] 08/23/2024 2:44 PM RADIATION DOSE METRICS: Total DLP (mGy-cm): 616.65 FINDINGS: Lungs: Unchanged scarring in the lung bases. Otherwise, unremarkable. Pleural spaces: Unremarkable. No pneumothorax. No pleural effusion. Heart: Unchanged aortic valve replacement. Otherwise, unremarkable heart. Coronary arteries: Unchanged coronary artery calcification. Lymph nodes: Unremarkable. No enlarged lymph nodes. Vasculature: Unremarkable. No aortic aneurysm. Bones/joints: Unchanged mild thoracic scoliosis, kyphosis, and multilevel spondylosis. Stable surgical changes visualized cervical spine. Otherwise, unremarkable. Soft tissues: Unchanged 2 cm x by 3.3 cm x 1.8 cm mass in the lateral right 6th intercostal space containing soft tissue, fatty, and calcific elements. This is believed to be benign, as it has been stable for over 2 years, and is not PET avid. Unchanged mild bilateral gynecomastia. Otherwise, unremarkable visualized chest wall. Otherwise, unremarkable soft tissues. PROCEDURE INFORMATION: Exam: CT Abdomen And Pelvis With Contrast Exam date and time: 02/07/2025 12:30 PM Age: 74 years old Clinical indication: Condition or disease; Other: Large b cell lymphoma; Prior surgery; Surgery date: 6+ months; Surgery type: Back, RT hip, gb. Spleen, small intestines, cardiac valve TECHNIQUE: Imaging protocol: Computed tomography of the abdomen and pelvis with contrast. Radiation optimization: All CT scans at this facility use at least one of these dose optimization techniques: automated exposure control; mA and/or kV adjustment per patient size (includes targeted exams where dose is matched to clinical indication); or iterative reconstruction. Contrast material: OMNI 350; Contrast volume: 100 ml; Contrast route: INTRAVENOUS (IV); COMPARISON: CT chest abdpel w/*[id number] 08/23/2024 2:44 PM RADIATION DOSE METRICS: Total DLP (mGy-cm): 616.65 FINDINGS: Lungs: See above report. Liver: Normal. No mass. Gallbladder and biliary ducts: Unchanged cholecystectomy. Unremarkable bile ducts. Pancreas: Normal. No ductal dilation. Spleen: Unchanged splenectomy with residual splenule. Adrenal glands: Normal. No mass. Kidneys and ureters: Tiny nonobstructing calculus upper right kidney. Distal ureters are obscured by streak artifact. Otherwise, unremarkable. Stomach and bowel: Again noted are diverticula from the colon. No diverticulitis. Otherwise, unremarkable. Appendix: No evidence of appendicitis. Intraperitoneal space: Unremarkable. No free air. No significant fluid collection. Vasculature: Unchanged moderate amount of arterial calcification. Otherwise, unremarkable. Lymph nodes: Unremarkable. No enlarged lymph nodes. Urinary bladder: Portions of the urinary bladder are obscured by artifact. Visualized portions are unremarkable. Reproductive: Unchanged enlargement of the prostate gland. Otherwise, grossly unremarkable, but limited by artifact. Bones/joints: Stable surgical changes lumbar spine. Unchanged right total hip arthroplasty streak artifact from it obscures portions of the inferior pelvis. Otherwise, unremarkable. Soft tissues: A few unchanged scattered metal foreign bodies. Otherwise, unremarkable visualized body wall. Otherwise, unremarkable soft tissues. CT/CT chest abdpel w/*[id number] IMPRESSION: 1. No acute findings. 2. Additional details as above. IMPRESSION: 1. No acute abdominal or pelvic findings. 2. Additional details as above.
[2025-02-07] MEDS: iohexol 350 mg/mL 500 mL Btl (per mL) PO (12:06)
[2025-02-07] MEDS: iohexol 350 mg/mL 500 mL Btl (per mL) IV (12:33)
[2025-02-07 12:45] LABS: Blood Urea Nitrogen 8 mg/dL (8-23)
== END 2025-02-16 23:59 | disposition home or self-care (01) ==
LOC: RAD 10:51 → ONCMED 11:19
PROVIDERS: Visit Provider Internal Medicine Medical Oncology
DX: Z45.2 Encounter for adjustment and management of vascular access device (principal); Q55.9 Congenital malformation of male genital organ, unspecified; C85.10 Unspecified B-cell lymphoma, unspecified site; Z95.828 Presence of other vascular implants and grafts
CPT/HCPCS: 71260; 74177; 82565; 84520

== ENCOUNTER → 2025-02-23 11:08 | Outpatient (BNVA) | payer MEDICARE, SELFPAY | PROVIDERS: Visit Provider Nurse Practitioner Family | DX: L82.1 Other seborrheic keratosis (principal); D22.5 Melanocytic nevi of trunk; L57.8 Other skin changes due to chronic exposure to nonionizing radiation; L81.4 Other melanin hyperpigmentation; Z85.820 Personal history of malignant melanoma of skin; Z08 Encounter for follow-up examination after completed treatment for malignant neoplasm; Z85.828 Personal history of other malignant neoplasm of skin; D48.5 Neoplasm of uncertain behavior of skin; L57.0 Actinic keratosis | CPT/HCPCS: 11102; 17000; 99213 ==

== ENCOUNTER 2025-03-08 12:27 | Oncology outpatient (recurring) (ONCR) | payer MEDICARE, SELFPAY ==
[2025-03-08 12:54] LABS: Basophils # 0.1 10^3/uL (0.0-0.1); Basophils % 0.9 %; Eosinophils # 0.1 10^3/uL (0.0-0.8); Eosinophils % 1.1 %; Hematocrit 41.2 % (37-53); Lymphocytes # 1.8 10^3/uL (0.8-4.8); Lymphocytes % 32.3 %; Mean Corpuscular HGB Conc 33.5 g/dL (30-55); Mean Corpuscular Hemoglobin 31.3 pg (27-33); Mean Corpuscular Volume 93.4 fl (82-101); Mean Platelet Volume 9.5 fL (7.4-10.4); Monocytes # 0.5 10^3/uL (0.2-0.9); Monocytes % 9.8 %; Neutrophils % 55.5 %; Nucleated Red Blood Cells % 0 %; Platelet Count 196 10^3/cmm (157-399); Red Blood Count 4.41 10^6/uL (3.85-5.65); Red Cell Distribution Width 13.1 % (12.1-15.1); White Blood Count 5.41 10^3/uL (3.29-11.43)
[2025-03-08 13:19] LABS: Alanine Aminotransferase 21 U/L (0-41); Albumin Level 3.8 g/dL (3.5-5.2); Alkaline Phosphatase 97 U/L (40-130); Anion Gap 13.6 (5-19); Aspartate Amino Transferase 24 U/L (0-40); Blood Urea Nitrogen 8 mg/dL (8-23); Calcium 8.5 mg/dL (8.5-10.5); Carbon Dioxide 27 mmol/L (22-29); Chloride 104 mmol/L (98-107); Creatinine Clr Calc Pharmacy 85.8987; Globulin 2.9 g/dL (1.3-4.6); Glucose 133 mg/dL (65-115); Lactate Dehydrogenase 162 U/L (135-225); Osmolality Calculated 292 mOsm/kg (285-295); Potassium 3.6 mmol/L (3.5-5.1); Sodium 141 mmol/L (136-145); Total Bilirubin 0.4 mg/dL (0.15-1.2); Total Protein 6.7 g/dL (6.6-8.7)
== END 2025-03-19 23:59 | disposition home or self-care (01) ==
PROVIDERS: Visit Provider Internal Medicine Medical Oncology
DX: Z85.72 Personal history of non-Hodgkin lymphomas (principal); L21.8 Other seborrheic dermatitis; Z85.820 Personal history of malignant melanoma of skin; Z08 Encounter for follow-up examination after completed treatment for malignant neoplasm; Z85.828 Personal history of other malignant neoplasm of skin; C44.319 Basal cell carcinoma of skin of other parts of face; L57.0 Actinic keratosis; Z87.891 Personal history of nicotine dependence; Z79.899 Other long term (current) drug therapy
CPT/HCPCS: 13132; 17000; 17311; 36415; 80053; 83615; 85025; 99214

== ENCOUNTER → 2025-03-29 09:14 | Outpatient (BNVA) | payer MEDICARE, SELFPAY | PROVIDERS: Visit Provider Nurse Practitioner | DX: C85.10 Unspecified B-cell lymphoma, unspecified site (principal); Z86.79 Personal history of other diseases of the circulatory system; Z95.2 Presence of prosthetic heart valve; Z98.890 Other specified postprocedural states; R06.02 Shortness of breath; N40.0 Benign prostatic hyperplasia without lower urinary tract symptoms; D50.9 Iron deficiency anemia, unspecified | CPT/HCPCS: 80053; 83615; 83880; 84153; 85025 ==

== ENCOUNTER → 2025-04-19 13:24 | Outpatient (BNVA) | payer MEDICARE, SELFPAY | PROVIDERS: Visit Provider Nurse Practitioner Family | DX: L21.8 Other seborrheic dermatitis (principal); Z85.820 Personal history of malignant melanoma of skin; Z08 Encounter for follow-up examination after completed treatment for malignant neoplasm; Z85.828 Personal history of other malignant neoplasm of skin; L57.0 Actinic keratosis | CPT/HCPCS: 17000; 99214 ==

== ENCOUNTER → 2025-05-31 09:36 | Outpatient (BNVA) | payer MEDICARE, SELFPAY | PROVIDERS: PCP Nurse Practitioner; Visit Provider Nurse Practitioner | DX: R42 Dizziness and giddiness (principal) | CPT/HCPCS: 80053; 83735 ==

== ENCOUNTER → 2025-06-21 09:03 | Outpatient (BNVA) | payer MEDICARE, SELFPAY | PROVIDERS: PCP Nurse Practitioner; Visit Provider Nurse Practitioner | DX: Z00.00 Encounter for general adult medical examination without abnormal findings (principal); D64.9 Anemia, unspecified; R73.9 Hyperglycemia, unspecified | CPT/HCPCS: 83036; 84443; 85025 ==

== ENCOUNTER → 2025-06-22 09:23 | Outpatient (BNVA) | payer MEDICARE, SELFPAY | PROVIDERS: PCP Nurse Practitioner; Visit Provider Nurse Practitioner | DX: Z00.00 Encounter for general adult medical examination without abnormal findings (principal) | CPT/HCPCS: 82270 ==

== ENCOUNTER → 2025-06-29 11:01 | Outpatient (BNVA) | payer MEDICARE, SELFPAY | PROVIDERS: PCP Nurse Practitioner; Visit Provider Nurse Practitioner | DX: R73.9 Hyperglycemia, unspecified (principal); M79.89 Other specified soft tissue disorders | CPT/HCPCS: 83036; 84550 ==

== ENCOUNTER → 2025-07-14 09:55 | Outpatient (BNVA) | payer MEDICARE, SELFPAY | PROVIDERS: PCP Nurse Practitioner; Visit Provider Nurse Practitioner | DX: R30.9 Painful micturition, unspecified (principal); R68.89 Other general symptoms and signs; R50.9 Fever, unspecified | CPT/HCPCS: 81000; 85025; 87086; 87400; 87426 ==

== ENCOUNTER 2025-07-29 11:00 | Oncology outpatient (recurring) (ONCR) | payer MEDICARE, SELFPAY ==
[2025-07-26 11:17] LABS: Hematocrit 41.3 % (37-53); Hemoglobin 13.80 g/dL (11.27-16.99); Mean Corpuscular HGB Conc 33.4 g/dL (30-55); Mean Corpuscular Hemoglobin 31.4 pg (27-33); Mean Corpuscular Volume 93.9 fl (82-101); Nucleated Red Blood Cells % 0 %; Platelet Count 410 10^3/cmm (157-399); Red Blood Count 4.40 10^6/uL (3.85-5.65); White Blood Count 5.64 10^3/uL (3.29-11.43)
[2025-07-26 11:51] LABS: Alanine Aminotransferase 19 U/L (0-41); Albumin Level 3.8 g/dL (3.5-5.2); Alkaline Phosphatase 100 U/L (40-130); Anion Gap 11.8 (5-19); Aspartate Amino Transferase 20 U/L (0-40); Blood Urea Nitrogen 9 mg/dL (8-23); Calcium 8.8 mg/dL (8.5-10.5); Carbon Dioxide 30 mmol/L (22-29); Chloride 101 mmol/L (98-107); Creatinine Clr Calc Pharmacy 82.5376; Globulin 3.5 g/dL (1.3-4.6); Glucose 85 mg/dL (65-115); Osmolality Calculated 286 mOsm/kg (285-295); Potassium 3.8 mmol/L (3.5-5.1); Prostate Specific Antigen 3.210 ng/mL (0-4); Sodium 139 mmol/L (136-145); Total Protein 7.3 g/dL (6.6-8.7)
--- NOTE | 2025-07-29 11:00 | PETR_ITS ---
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 Spleen, small intestines, cardiac valve LABS AND CLINICAL REPORTS: Glucose: 106 mg/dl Treatment strategy for malignancy (PET staging): Restaging (PS) TECHNIQUE: Imaging protocol: Following at least four-hour fasting and following the injection of radiopharmaceutical, low dose CT images were obtained. Then, PET images were obtained. Attenuation corrected images were constructed using the CT scan. Fused images of PET and CT were reviewed. The standardized uptake values (SUV) reported below are maximum values within a region of interest, expressed in gm/ml. Exam includes orbital meatal line to mid-thigh. SUV normalization method: BodyWeight Radiopharmaceutical: 11.9 mCi F-18 FDG (Fluorodeoxyglucose), IV. Time of imaging post radiopharmaceutical administration: 46 minutes Injection site: right ac COMPARISON: 1. PT PET skull to thigh SUBS [id number] 03/02/2024 1:[address] chest abdpel w/*[id number] 02/07/2025 12:30 PM FINDINGS: Brain: Visualized brain has normal physiologic uptake. Teeth: Developed FDG avid mild right inferior maxillary sinus mucosal thickening showing SUV max 6.2 adjacent to developed maxillary molar periapical lucency. Pharynx: No abnormal uptake. Larynx: No abnormal uptake. Lungs, pleura and trachea: No abnormal uptake. Mild bibasilar subsegmental atelectasis versus scarring. No consolidation or mass. Heart: Normal physiologic uptake. Prior TAVR. Coronary arteries: Heavy coronary artery calcification. Mediastinal space: No abnormal uptake. Liver: No abnormal uptake. Gallbladder and biliary ducts: No abnormal uptake. Prior cholecystectomy. Pancreas: No abnormal uptake. Spleen: No abnormal uptake. Prior splenectomy with stable non FDG-avid splenule. Adrenal glands: No abnormal uptake. Kidneys and ureters: Normal physiologic uptake. Stomach and bowel: No abnormal uptake. Colonic diverticulosis. Reproductive: Prostatomegaly. No abnormal uptake. Vasculature: No abnormal uptake. Moderate to heavy systemic atherosclerotic calcification without aortic aneurysm. Lymph nodes: Mildly increased FDG uptake at stable size nonenlarged mediastinal and bilateral hilar lymph nodes, index subcarinal node showing SUV max 3.7 on axial image 103, previously 2.7. Right upper paratracheal node shows SUV max 3.6 on axial image 79, previously 2.4. Right hilar uptake shows SUV max 3.5, previously 2.9. Left hilar uptake shows SUV max 3.1, previously 2.4. Skeleton: No abnormal uptake in the visualized axial and appendicular skeleton. Stable non FDG avid heterogeneous ossification at the lateral right 6th intercostal space with associated fat density likely representing benign lesion. Degenerative change along the spine and acromioclavicular joints. Lower cervical spine anterior fusion hardware. L3-L4 posterior instrumented fusion hardware. Right total hip arthroplasty. Soft tissues: Developed FDG avid mild right inguinal nodular dermal thickening, medial nodularity showing SUV max 6.0 on axial image 232 and more lateral nodularity showing SUV max 4.3 on axial image 239. Smaller subjacent subcentimeter subcutaneous soft tissue nodularity shows SUV max 3.6 on axial image 240. Mild gynecomastia. Left anterior chest loop recorder. METRICS: Mediastinal blood pool: SUV mean 1.5 Liver uptake: SUV mean 1.9 Other findings: Stable scattered abdominopelvic and bilateral proximal thigh metallic densities. PET/PET skull to thigh [id number] [id number] IMPRESSION: 1. Mildly increased low-level uptake at stable size nonenlarged mediastinal and bilateral hilar lymph nodes. Distribution raises possibility of benign granulomatous uptake. 2. Developed FDG avid mild right inguinal nodular dermal thickening and subjacent subcentimeter subcutaneous soft tissue nodularity possibly representing mildly metabolic lymph node. Findings may be inflammatory, query recent procedure. Neoplastic process not excluded. Correlate with clinical findings. 3. Developed FDG-avid mild right inferior maxillary sinus mucosal thickening adjacent to developed maxillary molar periapical lucency suggestive of odontogenic sinusitis. 4. Additional chronic and incidental findings as above.
== END 2025-08-19 23:59 | disposition home or self-care (01) ==
LOC: ONCMED 08-01 09:37
PROVIDERS: PCP Nurse Practitioner; Visit Provider Internal Medicine Medical Oncology
DX: Z85.72 Personal history of non-Hodgkin lymphomas (principal); L21.8 Other seborrheic dermatitis; Z85.820 Personal history of malignant melanoma of skin; Z08 Encounter for follow-up examination after completed treatment for malignant neoplasm; Z85.828 Personal history of other malignant neoplasm of skin; C44.319 Basal cell carcinoma of skin of other parts of face; L57.0 Actinic keratosis; Z87.891 Personal history of nicotine dependence; Z79.899 Other long term (current) drug therapy; Q55.9 Congenital malformation of male genital organ, unspecified; C85.10 Unspecified B-cell lymphoma, unspecified site; Z95.828 Presence of other vascular implants and grafts
CPT/HCPCS: 36415; 78815; 80053; 83615; 84153; 85025; 99214; A9552

== ENCOUNTER → 2025-08-08 12:42 | Outpatient (BNVA) | payer MEDICARE, SELFPAY | PROVIDERS: PCP Nurse Practitioner; Visit Provider Internal Medicine Medical Oncology | DX: C85.10 Unspecified B-cell lymphoma, unspecified site (principal); R03.0 Elevated blood-pressure reading, without diagnosis of hypertension; R59.9 Enlarged lymph nodes, unspecified; Z87.891 Personal history of nicotine dependence; Z90.81 Acquired absence of spleen; Z92.21 Personal history of antineoplastic chemotherapy | CPT/HCPCS: 99213 ==

== ENCOUNTER 2025-09-06 13:00 | Oncology outpatient (recurring) (ONCR) | payer MEDICARE, SELFPAY ==
[2025-08-30] MEDS: iohexol 350 mg/mL 500 mL Btl (per mL) PO (09:34)
[2025-08-30] MEDS: iohexol 350 mg/mL 500 mL Btl (per mL) IV (09:42)
--- NOTE | 2025-08-30 09:45 | CTR_ITS ---
PROCEDURE INFORMATION: Exam: CT Chest With Contrast; Diagnostic Exam date and time: 08/30/2025 9:37 AM Age: 75 years old Clinical indication: Diffuse large B-cell lymphoma TECHNIQUE: Imaging protocol: Diagnostic computed tomography of the chest with contrast. Radiation optimization: All CT scans at this facility use at least one of these dose optimization techniques: automated exposure control; mA and/or kV adjustment per patient size (includes targeted exams where dose is matched to clinical indication); or iterative reconstruction. Contrast material: OMNI 350; Contrast volume: 100 ml; Contrast route: INTRAVENOUS (IV); COMPARISON: PT PET skull to thigh SUBS [id number] 07/29/2025 11:47 AM RADIATION DOSE METRICS: Total DLP (mGy-cm): 582.92 FINDINGS: Lungs: No pulmonary consolidation. Subsegmental dependent atelectasis. Pleural spaces: No pneumothorax. No pleural effusion. Heart: No cardiomegaly. No pericardial effusion. Coronary vascular calcifications. Mediastinal space: Unchanged appearance of partially ossified lesion in the right 6th intercostal space. Lymph nodes: Scattered mediastinal lymph nodes which do not meet CT size criteria for enlargement. Vasculature: Prosthetic aortic valve. No aortic aneurysm. No aortic dissection. Bones/joints: No acute fracture. Soft tissues: Unremarkable. PROCEDURE INFORMATION: Exam: CT Abdomen And Pelvis With Contrast Exam date and time: 08/30/2025 9:37 AM Age: 75 years old Clinical indication: Diffuse large B-cell lymphoma TECHNIQUE: Imaging protocol: Computed tomography of the abdomen and pelvis with contrast. Radiation optimization: All CT scans at this facility use at least one of these dose optimization techniques: automated exposure control; mA and/or kV adjustment per patient size (includes targeted exams where dose is matched to clinical indication); or iterative reconstruction. Contrast material: OMNI 350; Contrast volume: 100 ml; Contrast route: INTRAVENOUS (IV); COMPARISON: PT PET skull to thigh SUBS [id number] 07/29/2025 11:47 AM RADIATION DOSE METRICS: Total DLP (mGy-cm): 582.92 FINDINGS: Lungs: Lung bases are reported separately. Liver: Normal. No mass. Gallbladder and biliary ducts: The gallbladder is surgically absent. No biliary ductal dilation. Pancreas: No main pancreatic ductal dilation. Spleen: The spleen is surgically absent Adrenal glands: No adrenal nodule. Kidneys and ureters: No hydronephrosis. Symmetric nephrograms. Stomach and bowel: Colonic diverticulosis without CT findings of acute diverticulitis. There is a short segment of dilated small bowel in the right lower quadrant with non-opacified small bowel distal to this level. There is no significant upstream bowel dilation. Appendix: No evidence of appendicitis. Intraperitoneal space: No free air. No free fluid. Vasculature: No aortic aneurysm. Atherosclerosis. Lymph nodes: No lymphadenopathy by CT size criteria. Urinary bladder: Urinary bladder wall appears mildly thickened relative to degree of distension. Reproductive: The prostate is enlarged. Bones/joints: Right total hip arthroplasty. L3-L4 posterior spinal fusion. No acute fracture. Soft tissues: Soft tissues are unremarkable. CT/CT chest abdpel w/*[id number] IMPRESSION: No acute thoracic abnormality. IMPRESSION: 1. Short segmental small bowel dilation with decompressed distal loops which may represent a focal transient ileus versus early developing obstruction. Recommend clinical correlation and follow-up imaging as clinically indicated. 2. Urinary bladder wall appears mildly thickened relative to degree of distension. Recommend correlation with results of urinalysis for findings of cystitis.
[2025-09-06 13:10] LABS: Hematocrit 39.4 % (37-53); Hemoglobin 13.30 g/dL (11.27-16.99); Mean Corpuscular HGB Conc 33.8 g/dL (30-55); Mean Corpuscular Hemoglobin 32.1 pg (27-33); Mean Corpuscular Volume 95.2 fl (82-101); Nucleated Red Blood Cells % 0 %; Platelet Count 223 10^3/cmm (157-399); Red Blood Count 4.14 10^6/uL (3.85-5.65); White Blood Count 5.88 10^3/uL (3.29-11.43)
[2025-09-06 13:34] LABS: Alanine Aminotransferase 17 U/L (0-41); Albumin Level 3.9 g/dL (3.5-5.2); Alkaline Phosphatase 97 U/L (40-130); Anion Gap 8.0 (5-19); Aspartate Amino Transferase 24 U/L (0-40); Blood Urea Nitrogen 10 mg/dL (8-23); Calcium 8.7 mg/dL (8.5-10.5); Carbon Dioxide 33 mmol/L (22-29); Chloride 101 mmol/L (98-107); Globulin 3.2 g/dL (1.3-4.6); Glucose 124 mg/dL (65-115); Osmolality Calculated 286 mOsm/kg (285-295); Potassium 4.0 mmol/L (3.5-5.1); Sodium 138 mmol/L (136-145); Total Protein 7.1 g/dL (6.6-8.7)
== END 2025-09-18 23:59 | disposition home or self-care (01) ==
PROVIDERS: PCP Nurse Practitioner; Visit Provider Internal Medicine Medical Oncology
DX: C85.10 Unspecified B-cell lymphoma, unspecified site; R03.0 Elevated blood-pressure reading, without diagnosis of hypertension; R59.9 Enlarged lymph nodes, unspecified; Z90.81 Acquired absence of spleen; Z92.21 Personal history of antineoplastic chemotherapy; Z87.891 Personal history of nicotine dependence; Z53.9 Procedure and treatment not carried out, unspecified reason
CPT/HCPCS: 36415; 71260; 74177; 80053; 85025; 99214